=== PATIENT | female | born 1935 | race Caucasian/White ===

== ENCOUNTER 2019-08-23 23:16 | Inpatient (IN) | payer MEDICARE, SELFPAY ==
[2019-08-23 23:30] VITALS: BP 146/84; PULSE 86; RESP 22; TEMP 37; O2SAT 98
--- NOTE | 2019-08-23 23:30 | ECG_ITS ---
Measurements Intervals [place] Rate: 89 P: 47 PA: 190 QRS: -26 QRSD: 151 T: 112 QT: 402 QTc: 490 SINUS RHYTHM BORDERLINE LEFT AXIS DEVIATION [QRS AXIS < -20] INTRAVENTRICULAR CONDUCTION DELAY [130+ ms QRS DURATION] Compared to ECG 01/08/2019 18:32:10 Intraventricular conduction delay now present Electronically Signed On 08-24-2019 14:44:03 [facility] by Kashif Girard M.D. [id number]
[2019-08-23 23:33] VITALS: BMI 27.3
[2019-08-24] VITALS (25 sets, daily range): BP systolic 114–177; BP diastolic 69–95; PULSE 65–88; RESP 15–20; TEMP 36.2–37.4; O2SAT 81–100
[2019-08-24] MEDS: D5-NS 0.45% + KCL 20 mEq 20 MEQ/1,000 ML BAG 75 MEQ IV (00:08)
[2019-08-24] MEDS: morphine 4 mg/mL SDV 1 mL 2 MG IVP ×2 (00:09→13:42)
--- NOTE | 2019-08-24 03:34 | PM.HP ---
Providers/Chief Complaint Admitting Physician: Carleen Bennett MD Primary Care Provider: JACKELYN pacheco Chief Complaint: L HIP FRACTURE History of Present Illness Irene Moon is a 83 year old female who presented to [facility] after a witnessed fall. She tripped over some luggage in her home. She felt a crack and a pop in her left hip where she landed. No symptoms preceding the fall. It was simply accidental. Patient was ultimately found to have a left hip fracture. Patient requested transfer for orthopedic care. She is otherwise been doing well. Review of Systems Const: Denies: fever or chills Eyes: Denies: change in vision ENMT: Denies: throat pain or nasal congestion Card: Denies: chest pain, palpitations, irregular heart rhythm, swelling of feet/ankles, lightheadedness, syncope, shortness of breath on exertion or shortness of breath when lying down Resp: Denies: shortness of breath, productive cough or non-productive cough GI: Denies: abdominal pain, nausea, vomiting, diarrhea or constipation : Denies: difficulty urinating or urinary frequency Musc: Reports: extremity pain Skin/Breast: Denies: rash or itching Neuro: Denies: headache, numbness in extremities or weakness in extremities Psych: Reports: anxiety and depression Medications/Allergies Home Medications Medication Instructions Recorded Confirmed Last Taken Type alprazolam See Rx Instructions .ROUTE 08/23/19 08/23/19 1 Day Ago History .COMPLEX PRN ~08/22/19 .25 mg paroxetine HCl mg PO DAILY 08/23/19 1 Day Ago History ~08/22/19 10 mg Allergies Allergy/AdvReac Type Severity Reaction Status Date / Time No Known Drug Allergies Allergy Unknown na Verified 08/23/19 23:36 PFSH Acute PFSH: Statuses (acute, chronic, etc) shown below reflect problem list status as previously entered and may not be historically accurate Medical History (Updated 08/24/19 @ 05:10 by Carleen Bennett MD) Anxiety (Acute) Depression (Acute) History of esophageal dilatation (Acute) Pineal gland, tumor (Acute) benign Surgical History (Updated 08/24/19 @ 03:42 by Carleen Bennett MD) History of appendectomy (Acute) History of cataract surgery (Acute) History of cholecystectomy (Acute) Family History (Updated 08/24/19 @ 03:42 by Carleen Bennett MD) Other Cancer Social History (Updated 08/24/19 @ 03:42 by Carleen Bennett MD) Smoking and tobacco status: former smoker Alcohol intake: never Substance/Drug Use: never Female Reporductive History: : 5 Vitals/I&O/Wt Last Vital Signs Temp 98.6 F 08/23/19 23:30 Pulse 80 08/24/19 00:45 Resp 18 08/24/19 00:09 BP 146/84 08/23/19 23:30 Pulse Ox 97 08/24/19 00:45 Weight last 48 hrs Weight 65.998 kg Weight 65.998 kg Weight 65.998 kg Physical Exam Const: COMMON NORMALS: no apparent distress, oriented x3 and alert HENMT: COMMON NORMALS: normocephalic, head/scalp atraumatic and moist oral mucous membranes Eye: COMMON NORMALS: PERRL and EOMs intact bilaterally Neck/C-Spine: COMMON NORMALS: supple and no JVD Resp: COMMON NORMALS: normal respiratory effort, no use of accessory muscles and clear to auscultation bilaterally Cardio: COMMON NORMALS: regular rate, regular rhythm and no murmurs GI: COMMON NORMALS: normal to inspection, nondistended, normoactive bowel sounds, soft to palpation and non-tender : COMMON NORMALS: Yes external appearance normal BLADDER/KIDNEY EXAM: Yes catheter in place Catheter type (Female): urethral Extremity: NARRATIVE EXTREMITY EXAM: Right lower extremity shortened and externally rotated Neuro: COMMON NORMALS: no focal motor deficits and no sensory deficits noted SPEECH: speech normal Psych: COMMON NORMALS: thought process normal, cooperative and affect normal Skin: GENERAL SKIN EXAM: no rashes or lesions noted Data Other Data: Other data: Studies from outside facility: X-ray of the pelvis shows a nondisplaced left femoral neck fracture Lumbar spine film was of suboptimal technique but showed spondylosis and suspected grade 1 anterior listhesis of L5 on S1 Left hip x-ray showed left femoral neck fracture with displacement and some superior angulation White count 11,000, H&H 14/45, platelet count 238 Sodium 139, potassium 4.0, chloride 100, CO2 28, calcium 9.1, BUN/creatinine 16/1.3, albumin 4.0, total bilirubin 0.4, alkaline phosphatase 118, AST 118, ALT 11 Urinalysis with specific gravity 1.020 trace ketones negative glucose negative nitrites and negative leukocyte esterase A&P Assessment and plan (1) Closed left hip fracture: Status: Acute Qualifiers: Encounter type: initial encounter Qualified Code(s): S72.002A - Fracture of unspecified part of neck of left femur, initial encounter for closed fracture Code(s): S72.002A - Fracture of unspecified part of neck of left femur, initial encounter for closed fracture (2) Depression: Status: Acute Qualifiers: Depression Type: unspecified Qualified Code(s): F32.9 - Major depressive disorder, single episode, unspecified Code(s): F32.9 - Major depressive disorder, single episode, unspecified (3) Anxiety: Status: Acute Code(s): F41.9 - Anxiety disorder, unspecified Additional A&P Information Additional A&P Information: Inpatient admission Orthopedic consultation Pain control N.p.o. for surgical intervention We will continue usual home medications PT and OT evaluations Patient has already decided she will go home with her daughter Currently SCDs for DVT prophylaxis Supportive care otherwise Both patient and her daughters in the room were given an opportunity to ask questions which were answered Attestations Medical Necessity Statement*: Anticipated stay greater than 2 midnights and patient with a hip fracture necessitating surgical intervention Coding Level of Care Code Acute Sales Assistant Displays for Dennis Fernández Diagnoses Closed left hip fracture S72.002A Encounter type: initial encounter Depression F32.9 Depression Type: unspecified Anxiety F41.9
[2019-08-24 04:45] LABS: Basophils % 0.2 %; Eosinophils % 0.2 %; Hematocrit 42.2 % (37.0-47.0); Hemoglobin 13.3 g/dL (11.5-15.3); Lymphocytes # 0.6 10^3/uL (0.8-4.8); Lymphocytes % 8.4 %; Mean Corpuscular HGB Conc 31.5 g/dL (30.0-36.0); Mean Corpuscular Hemoglobin 29.6 pg (28.0-34.0); Mean Corpuscular Volume 93.8 fL (81-99); Mean Platelet Volume 9.7 fL (7.4-10.4); Monocytes # 0.3 10^3/uL (0.2-0.9); Monocytes % 4.4 %; Neutrophils # 5.6 10^3/uL (1.8-7.7); Neutrophils % 86.2 %; Nucleated Red Blood Cells % 0 %; Platelet Count 186 10^3/cmm (130-400); Red Cell Distribution Width 12.6 % (12.1-15.1); White Blood Count 6.5 10^3/uL (4.0-10.0)
--- NOTE | 2019-08-24 09:32 | ANES.PREANES ---
Pre-Anesthetic Assessment Pre-Anesthetic Assessment: Height/Weight: Height 1.55 m Weight 71.033 kg Temp Pulse Resp BP Pulse Ox 97.1 F L 65 18 141/88 99 08/24/19 08:43 08/24/19 08:43 08/24/19 08:43 08/24/19 08:43 08/24/19 08:43 Preop Diagnosis: hip fracture (l) Proposed Procedure: Operation Date: 08/24/19 10:20 Proposed Procedures p Hemiarthroplasty Hip Bipolar(Left) - Husam Mcdaniel MD Familial anesthetic complications: no trouble Was Beta Keshawn taken within 24 hours: N/A Last intake: Intake Last Liquid Date 08/24/19 Last Liquid Time 22:00 Last Solid Date 08/23/19 Last Solid Time 18:00 Social: Social History: Tobacco (former) and No alcohol Exam: Pre-Anes Outpt Exam: alert Airway: Cervical ROM: WNL MP: 3 Dentition: Chipped Additional comments: missing Pulmonary: Pulmonary: None reported CV/HEM: CV/HEM: None reported : : None reported Hepatic: Hepatic: None reported GI: GI: GERD and Hiatus hernia Metabolic: Metabolic: None reported Musc/skel: Comments: Hip fracture Neuropsych: Neuropsych: None reported Anesthetic Plan: ASA status: II Anesthesia: General Risk of > 500 ml blood loss (7ml/kg in children): Yes, adequate IV access and fluids planned Meds/Allergies Current Medications: Current Medications Generic Name Dose Route Start Last Admin Trade Name Freq PRN Reason Stop Dose Admin Potassium Chloride /Dextrose/Sod Cl 20 meq in 1,000 m ls @ 75 mls/hr 08/23/19 23:30 08/24/19 00:08 D5-Ns 0.45% + Albaro l 20 Meq IV 75 mls/hr .[id number] SHERWIN Administration Morphine Sulfate 2 mg 08/23/19 23:30 08/24/19 00:09 Morphine IVP 2 mg Q4H PRN Administration SEVERE PAIN PFSH Anesthesia PFSH: Medical History (Updated 08/24/19 @ 05:10 by Carleen Bennett MD) Anxiety (Acute) Depression (Acute) History of esophageal dilatation (Acute) Pineal gland, tumor (Acute) benign Surgical History (Updated 08/24/19 @ 03:42 by Carleen Bennett MD) History of appendectomy (Acute) History of cataract surgery (Acute) History of cholecystectomy (Acute) Family History (Updated 08/24/19 @ 03:42 by Carleen Bennett MD) Other Cancer Social History (Updated 08/24/19 @ 03:42 by Carleen Bennett MD) Smoking and tobacco status: former smoker Alcohol intake: never Substance/Drug Use: never Female Reproductive History: : 5 Data Anesthesia Labs: Other Labs: Laboratory Results - last 48 hr 08/24/19 03:52 WBC 6.5 RBC 4.50 Hgb 13.3 Hct 42.2 MCV 93.8 MCH 29.6 MCHC 31.5 RDW 12.6 Plt Count 186 MPV 9.7 Neut % (Auto) 86.2 Lymph % (Auto) 8.4 Swisher % (Auto) 4.4 Eos % (Auto) 0.2 Baso % (Auto) 0.2 Neut # (Auto) 5.6 Lymph # (Auto) 0.6 L Swisher # (Auto) 0.3 Eos # (Auto) 0.0 Baso # (Auto) 0.0 Nucleated RBC % (a uto) 0 Nucleated RBCs # 0.0 Cardiac Studies: No Data to Display
[2019-08-24] MEDS: fentaNYL 50 mcg/mL INJ 2mL 25 MCG IVP (09:57)
--- NOTE | 2019-08-24 10:10 | P.CONIM_ITS ---
Providers/Reason For Consult Consulting Physican/Specialty*: Orthopedic surgery Reason for Consult*: Left intratrochanteric hip Requesting Physcian: Husam Mcdaniel MD Attending Physician: Julio Farooq MD History of Present Illness History of Present Illness Irene Moon is a 83 year old female who presented to [facility] after a fall at home when she tripped over luggage. She described a pop in her left hip when she landed and immediate pain. She was unable to resume weightbearing status. And [facility] she is found to have a displaced left femoral neck fracture. She is admitted to medicine and orthopedics is consulted for management of her left hip fracture. She denies any preceding left hip pain. She has no other extremity pain. Review of Systems Const: Denies: fever or chills Card: Denies: chest pain, palpitations or irregular heart rhythm Resp: Denies: shortness of breath or productive cough GI: Denies: abdominal pain, nausea or vomiting : Denies: painful urination or urinary frequency Neuro: Denies: numbness in extremities Meds/Allergies Home Medications and Allergies Home Medications Medication Instructions Recorded Confirmed Type alprazolam See Rx Instructions .ROUTE 08/23/19 08/23/19 History .COMPLEX PRN paroxetine HCl mg PO DAILY 08/23/19 History Allergies Allergy/AdvReac Type Severity Reaction Status Date / Time No Known Drug Allergies Allergy Unknown na Verified 08/23/19 23:36 Current Medications Current Medications Generic Name Dose Route Start Last Admin Trade Name Freq PRN Reason Stop Dose Admin Potassium Chloride/Dextrose/Sod Cl 20 meq in 1,000 mls @ 75 mls/hr 08/23/19 23:30 08/24/19 00:08 D5-Ns 0.45% + Kcl 20 Meq IV 75 mls/hr .[id number] SHERWIN Administration Morphine Sulfate 2 mg 08/23/19 23:30 08/24/19 00:09 Morphine IVP 2 mg Q4H PRN Administration SEVERE PAIN PFSH Acute PFSH: Statuses (acute, chronic, etc) shown below reflect problem list status as previously entered and may not be historically accurate Medical History Anxiety (Acute) Depression (Acute) History of esophageal dilatation (Acute) Pineal gland, tumor (Acute) benign Surgical History History of appendectomy (Acute) History of cataract surgery (Acute) History of cholecystectomy (Acute) Family History (Updated 08/24/19 @ 03:42 by Carleen Bennett MD) Other Cancer Social History (Updated 08/24/19 @ 03:42 by Carleen Bennett MD) Smoking and tobacco status: former smoker Alcohol intake: never Substance/Drug Use: never Female Reporductive History: : 5 Vitals/I&O/Wt Last Vital Signs Temp 97.1 F L 08/24/19 08:43 Pulse 65 08/24/19 08:43 Resp 18 08/24/19 09:57 BP 141/88 08/24/19 08:43 Pulse Ox 96 08/24/19 09:57 Weight last 48 hrs Weight 156 lb 9.6 oz Weight 145 lb 8 oz Weight 145 lb 8 oz Weight 145 lb 8 oz Physical Exam Narrative: EXAM NARRATIVE: Patient is a heavyset elderly female with shortening and deformity about her left hip. She answers questions appropriately but is somewhat sedate Resp: COMMON NORMALS: clear to auscultation bilaterally AUSCULTATION: clear to auscultation bilaterally Cardio: COMMON NORMALS: S1 normal heart sound and S2 normal heart sound HEART SOUNDS: S1 normal and S2 normal GI: INSPECTION: Yes normal to inspection PALPATION: No tender Extremity: LEFT LOWER EXTREMITY: Yes hip joint (Her left hip is painful with range of motion. She has ecchymoses over her lateral soft tissues) Neuro: SENSORY EXAM: Yes extremities (Intact left lower extremity) MOTOR EXAM: no movement abnormalities noted (Left foot and ankle) Urinary Catheter Management^: Brown: Cath Placed During This Visit: no Data Imaging^: Xray Ortho: My impression: I reviewed radiographs of the left hip showing a displaced left femoral neck fracture A&P Assessment and plan (1) Closed left hip fracture: I discussed alternatives including percutaneous pinning versus arthroplasty. I told her with a displaced fracture and her age she would be a high risk of fixation failure and avascular necrosis. I discussed hip arthroplasty with the patient models. I made her aware of risk with the procedure. I discussed risk of a possible instability or dislocation. I discussed the possibility of continued pain. I discussed risk of component failure loosening the need for revision. I discussed risk of deep venous thromboses and pulmonary emboli even with anticoagulation. I discussed anesthetic risk with surgery. The patient understands all her alternativesand agrees to proceed with total hip arthroplasty. They expressed good understanding was offered the opportunity for her questions to be answered. Status: Acute Qualifiers: Encounter type: initial encounter Qualified Code(s): S72.002A - Fracture of unspecified part of neck of left femur, initial encounter for closed fracture Code(s): S72.002A - Fracture of unspecified part of neck of left femur, initial encounter for closed fracture Coding Level of Care Code Acute Acid Tender for g Fwd Diagnoses Closed left hip fracture S72.002A Encounter type: initial encounter
[2019-08-24] MEDS: sodium chloride 0.9% 1,000 ML 30 ML IV (10:20)
[2019-08-24] MEDS: tranexamic acid 1,000 mg/10mL SDV 2000 MG IRRIGATION (11:37)
--- NOTE | 2019-08-24 12:05 | SUR.PHASEI ---
1200 PATIENT TO PACU AT THIS TIME VIA BED FROM OR. RR EVEN AND UNLABORED. PWD. DRESSING TO LEFT HIP, CDI. PULSE PRESENT. CAP REFILL LESS THAN 3 SECONDS.
--- NOTE | 2019-08-24 12:13 | XR_ITS ---
WS: [id number] HIP LEFT TECHNIQUE: 2 views of the left hip CLINICAL INFORMATION: POST OP COMPARISON: None. FINDINGS: Early postoperative left ISABEL. Hardware appears in good position. Otherwise unremarkable for postopera tive purposes. XR/XR hip LT 1V wo/w pel [id number] IMPRESSION: Normal postoperative left ISABEL.
[2019-08-24] MEDS: fentaNYL 50 mcg/mL INJ 2mL IVP (12:20)
--- NOTE | 2019-08-24 12:23 | SUR.PHASEI ---
FIRST ICE PLACED TO LEFT HIP.
[2019-08-24] MEDS: fentaNYL 50 mcg/mL INJ 2mL 75 MCG IVP (12:33)
--- NOTE | 2019-08-24 12:33 | P.OP_ITS ---
Operative Report Post-Operative Note Date of procedure: 08/24/19 Preop Diagnosis: Left femoral neck fracture, Post-op Findings: Same Procedure Done: Left hip hemiarthroplasty Implants: [employer] size 6 femoral stem, 44 mm bipolar head, 28 mm femoral head standard neck length Pathology: none sent Anesthesia: general Estimated blood loss (mL): 450 Complications: none Findings: Patient has a displaced fracture of the left femoral neck Condition: stable Disposition: PACU Operative Report Procedure: The patient was taken to the operating room and a general l anesthesia was provided by the anesthesia service. They were given 2 g of Ancef and 1 g of TXA. and positioned in the lateral position with the hip exposed. A 10 cm long incision was made over the greater trochanter with a scalpel blade. Dissection was carried down through the fascia poli to the greater trochanter. The anterior two thirds of gluteus medius and minimus were elevated off the greater trochanter with electrocautery. The capsule was divided T like fashion. The hip was externally rotated and the neck brought up into the wound. An oscillating saw was really used to resect the neck just above the level of the lesser trochanter. The femoral head was removed and the acetabulumt sized to a 44 mm bipolar head. Sequential reaming of the canal was accomplished up to a size 6. The canal was broached to a size 6 and a size 6 [place] [employer] WINTERS stem was press fit into place. A trial reduction with a [] mm neck provided excellent stability. The final head and neck were placed and the hip reduced. The anterior capsule were reapproximated with 1 Ethibond. The gluteus medius and minimus were repaired through the greater trochanter with 5 Ethibond and reinforced with 1 Ethibond. The fascia poli was closed with 1 Ethibond. The subcutaneous tissues were closed with 2-0 Vicryl. The skin was closed with skin yumiko. Sterile dressings were applied. The patient was placed in abduction pillow and taken recovery room in stable condition.
--- NOTE | 2019-08-24 12:48 | SUR.PHASEI ---
UNABLE TO FIND FAMILY IN THE WAITING ROOM.
[2019-08-24] MEDS: HYDROcodone-acetaminophen 5-325 mg Tablet 1 TAB PO ×2 (12:58→20:57)
--- NOTE | 2019-08-24 13:03 | SUR.PHASEI ---
1240 PATIENT TO MED SURG AT THIS TIME. RR EVEN AND UNLABORED. PWD. PULSE PRESENT TO LEFT PEDAL PULSE. CAP REFILL INTACT. FIRST ICE IN PLACE TO LEFT HIM WITH CDI DRESSING. FAMILY PRESENT IN MED SURG ROOM. VSS 177/82, P 68 RR 18 T98.0 SPO2 96% ON 3L NC
[2019-08-24] MEDS: sodium chloride 0.9% 1,000 ML 100 ML IV (13:47)
--- NOTE | 2019-08-24 15:52 | PM.PACU ---
PACU note Post-Anesthesia Exam: awake and vital signs stable Disposition: back to floor
--- NOTE | 2019-08-24 16:58 | PC.CHAP ---
Pastoral Care Encounter/Spiritual Assessment Type of Contact [] Declined pop singer visit [] Patient/Family/Request visit [] Outpatient visit [] Follow-up visit [] Physician referral [] Code/Alert [x] Routine visit [] Staff referral [] Actively dying [] Patient sleeping [x] Family support [] [] Out of room [] Palliative care [] [] Receiving care in room [x] Pre-surgical visit [] Trauma [] Long length of stay [] ICU visit [] Other: Relational/Emotional Strength x[] Patient feels connected with others/family/visitors/staff [] Distress [] Loneliness/isolation [] Abandonment Spirituality of Patient [x] Person of Helga [] Attends Yazdanism of their Helga [x] Believes in Prayer [] Reads Bible or Moravian materials [] There are Spiritual issues to be addressed Electronic Funds Transfer Coordinator Interventions [x] Prayer [x] Active listening [x] Non-anxious presence [x] Spiritual/emotional support [] Crisis/trauma care [] Spiritual counseling [] Bereavement support [] Provided bereavement packet [] Provided Bible/devotional materials [] Provided toy/stuffed animal, coloring book to patient or family member [] Completed spiritual assessment [] Provided Communion [] Anointing/[place] [] Salvation [] Other: Impact on Illness or Injury [] Angry [] Fearful [] Anxious [] Often cries [] Exhaustion [] Unable to work [] Unable to attend mosque [] Unable to walk/stand [] Unable to read [] Unable to drive [] Unable to eat/drink [] Unable to sleep [] Unable to be with family [] Other: Summary patient had surgery in the morning, had 6 family members there. Electronic Funds Transfer Coordinator prayed Time spent with patient
--- NOTE | 2019-08-24 17:31 | P.PN_ITS ---
Subjective Subjective: Interval history: Admitted overnight. Labs and H and P noted. Seen post OP. Comfortable and in good spirits talking to family. States pain in well controlled. Denies any N/V, SOB, CP, cough, headache. Medications: Reviewed: Yes Vitals/I&O/Wt Last Vital Signs Temp 98.9 F 08/24/19 17:00 Pulse 78 08/24/19 17:00 Resp 18 08/24/19 17:00 BP 114/73 08/24/19 17:00 Pulse Ox 97 08/24/19 17:00 08/24/19 08/24/19 08/24/19 06:59 14:59 22:59 Intake Total 2006.5 / Output Total 550 / 550 Balance 1457.5 / 1457.5 Weight last 48 hrs Weight 71.016 kg Weight 71.033 kg Weight 65.998 kg Weight 65.998 kg Weight 65.998 kg Physical Exam Narrative: EXAM NARRATIVE: General: No acute distress, AO x3 HEENT: PERRLA, pupils bilaterally equal and reactive Chest: Normal vesicular breath sounds, no added sounds, equal good air entry bilaterally CVS: S1-S2 regular, no murmurs, no tachycardia, no gallops, no rubs Abdomen: Soft, nontender, no organomegaly, bowel sounds present Neuro: No focal deficits, no facial deformity, AO x3, power 5/5 in all limbs EXT: B/L peda pulses 2+, no edema. Hip dressing clean Urinary Catheter Management^: Brown: Cath Placed During This Visit: no A&P Assessment and plan (1) Closed left hip fracture: Status: Acute Qualifiers: Encounter type: initial encounter Qualified Code(s): S72.002A - Fracture of unspecified part of neck of left femur, initial encounter for closed fracture Code(s): S72.002A - Fracture of unspecified part of neck of left femur, initial encounter for closed fracture (2) Anxiety: Status: Acute Code(s): F41.9 - Anxiety disorder, unspecified Additional A&P Information Additional A&P Information: Post op day 0 from closed left hip fracture repair Perioperative abx, pain management, as per orthopedics team Will avoid oversedation, therefore will reduce morphine to q4h. Pain currently well controlled iv tylenol q8h standing PT/DVT ppx per surgical team Dementia Continue home dose Paroxtine and monitor for ing Full Code. Diet advanced to regular diet as per surgical team resident services coordinator ocnsult for discharge/dispo planning Attestations Medical Necessity Statement*: post op monitoring from hip fracture Coding Level of Care Code Acute Health Sciences Program Coordinator for Dennis Fernández Diagnoses Closed left hip fracture S72.002A Encounter type: initial encounter Anxiety F41.9
[2019-08-24] MEDS: docusate sodium 100 mg Capsule PO (17:35)
[2019-08-25] VITALS (8 sets, daily range): BP systolic 105–144; BP diastolic 63–81; PULSE 75–97; RESP 14–20; TEMP 36.3–36.8; O2SAT 91–98
[2019-08-25] MEDS: morphine 4 mg/mL SDV 1 mL 2 MG IVP (00:48)
[2019-08-25] MEDS: sodium chloride 0.9% 1,000 ML 100 ML IV (00:49)
[2019-08-25] MEDS: HYDROcodone-acetaminophen 5-325 mg Tablet 1 TAB PO ×4 (04:41→22:01)
[2019-08-25 05:56] LABS: Basophils % 0.2 %; Eosinophils # 0.1 10^3/uL (0.0-0.8); Eosinophils % 2.6 %; Hematocrit 35.6 % (37.0-47.0); Hemoglobin 11.2 g/dL (11.5-15.3); Lymphocytes # 0.6 10^3/uL (0.8-4.8); Lymphocytes % 10.5 %; Mean Corpuscular HGB Conc 31.5 g/dL (30.0-36.0); Mean Corpuscular Hemoglobin 28.7 pg (28.0-34.0); Mean Corpuscular Volume 91.3 fL (81-99); Mean Platelet Volume 9.9 fL (7.4-10.4); Monocytes # 0.4 10^3/uL (0.2-0.9); Monocytes % 8.2 %; Neutrophils # 4.2 10^3/uL (1.8-7.7); Neutrophils % 78.1 %; Nucleated Red Blood Cells % 0 %; Platelet Count 155 10^3/cmm (130-400); Red Cell Distribution Width 12.7 % (12.1-15.1); White Blood Count 5.4 10^3/uL (4.0-10.0)
[2019-08-25 06:15] LABS: Anion Gap 10.6 (5-19); Blood Urea Nitrogen 7 mg/dL (8-23); Calcium 8.3 mg/Dl (8.8-10.2); Carbon Dioxide 27 mmol/L (22-29); Chloride 103 mmol/L (98-107); Glucose 136 mg/dL (74-106); Potassium 3.6 mmol/L (3.5-5.1); Sodium 137 mmol/L (136-145)
[2019-08-25] MEDS: PARoxetine 20 mg Tablet 10 MG PO (08:49)
[2019-08-25] MEDS: docusate sodium 100 mg Capsule PO ×2 (08:49→17:07)
[2019-08-25] MEDS: enoxaparin 40 mg/0.4 mL Syringe SUBCUT (09:48)
--- NOTE | 2019-08-25 10:06 | ANE.PACU ---
 Inpatient post-anesthesia follow up: Airway intact: Yes Vital signs: Temperature 97.6 F Pulse Rate [Left D orsalis 77 Pedis] Pulse Rate [Right Apical] 72 Pulse Rate 81 Respiratory Rate 14 Blood Pressure [Le ft Arm] 130/74 Pulse Oximetry 98 Oxygen Delivery Me thod [ Nasal Cannula Current Rate & Del zahra] Oxygen Delivery Me thod [Rate & Nasal Cannula Delivery Changed T o] Oxygen Delivery Me thod Nasal Cannula Oxygen Flow Rate [ Current Rate 2 & Delivery] Oxygen Flow Rate [ Rate & 3 Delivery Changed T o] Oxygen Flow Rate 3 Fraction of Inspir ed Oxygen Hydration adequate: Yes Nausea and vomiting: No Mental status: Baseline
--- NOTE | 2019-08-25 14:23 | P.PN_ITS ---
Subjective Subjective: Interval history: Postop day 1. No acute events overnight. This morning on evaluation patient is sitting comfortably in chair. States her pain is well controlled. Patient worked well with physical therapy. Is in good spirits sitting with her family members. Medications: Reviewed: Yes Vitals/I&O/Wt Last Vital Signs Temp 97.8 F 08/25/19 12:00 Pulse 91 08/25/19 12:00 Resp 16 08/25/19 12:00 BP 138/78 08/25/19 12:00 Pulse Ox 92 08/25/19 12:00 08/24/19 08/25/19 08/25/19 22:59 06:59 14:59 Intake Total 430 / 2437.5 1300 / 3737.5 120 / 120 Output Total 1150 / 1700 850 / 850 Balance 430 / 1887.5 150 / 2037.5 -730 / -730 Weight last 48 hrs Weight 71.016 kg Weight 71.033 kg Weight 65.998 kg Weight 65.998 kg Weight 65.998 kg Physical Exam Narrative: EXAM NARRATIVE: EXAM NARRATIVE: General: No acute distress, AO x3 HEENT: PERRLA, pupils bilaterally equal and reactive Chest: Normal vesicular breath sounds, no added sounds, equal good air entry bilaterally CVS: S1-S2 regular, no murmurs, no tachycardia, no gallops, no rubs Abdomen: Soft, nontender, no organomegaly, bowel sounds present Neuro: No focal deficits, no facial deformity, AO x3, power 5/5 in all limbs EXT: B/L peda pulses 2+, no edema. Hip dressing clean Urinary Catheter Management^: Brown: Cath Placed During This Visit: Yes. A&P Assessment and plan (1) Closed left hip fracture: Status: Acute Qualifiers: Encounter type: initial encounter Qualified Code(s): S72.002A - Fracture of unspecified part of neck of left femur, initial encounter for closed fracture Code(s): S72.002A - Fracture of unspecified part of neck of left femur, initial encounter for closed fracture (2) Anxiety: Status: Acute Code(s): F41.9 - Anxiety disorder, unspecified Additional A&P Information Additional A&P Information: Post op day 1 from closed left hip fracture repair Pain management as per orthopedics team. Continue with morphine every 4 hours as needed, Tylenol every 8 standing and hydrocodone every 4 as needed. Continue to work with PT for further rehabilitation. DVT prophylaxis as per orthopedics team. Dementia Continue home dose Paroxtine and monitor for Full Code. Lovenox for DVT prophylaxis Regular diet information services consultant consult for discharge/dispo planning: [facility] Attestations Medical Necessity Statement*: Needs continued hospitalization for postop management of ORIF Time Spent in Patient Care: less than 15 minutes Coding Level of Care Code Acute Remnant Sorter for Chg Fwd Diagnoses Closed left hip fracture S72.002A Encounter type: initial encounter Anxiety F41.9
[2019-08-26] VITALS (7 sets, daily range): BP systolic 92–143; BP diastolic 60–80; PULSE 78–100; RESP 16–18; TEMP 36.6–37.2; O2SAT 90–98
[2019-08-26 06:16] LABS: Basophils % 0.2 %; Eosinophils # 0.1 10^3/uL (0.0-0.8); Eosinophils % 1.1 %; Hematocrit 32.8 % (37.0-47.0); Hemoglobin 10.5 g/dL (11.5-15.3); Lymphocytes # 0.6 10^3/uL (0.8-4.8); Lymphocytes % 10.2 %; Mean Corpuscular Hemoglobin 29.3 pg (28.0-34.0); Mean Corpuscular Volume 91.6 fL (81-99); Mean Platelet Volume 9.8 fL (7.4-10.4); Monocytes # 0.5 10^3/uL (0.2-0.9); Monocytes % 7.4 %; Neutrophils % 80.8 %; Nucleated Red Blood Cells % 0 %; Platelet Count 163 10^3/cmm (130-400); Red Blood Count 3.58 10^6/uL (4.1-5.3); Red Cell Distribution Width 12.5 % (12.1-15.1); White Blood Count 6.2 10^3/uL (4.0-10.0)
--- NOTE | 2019-08-26 09:44 | PM.PN ---
Subjective Subjective: Interval history: Postop day 2. No acute events overnight. Siitting comfortably in chair. States her pain is well controlled. Patient worked well with physical therapy. Is in good spirits sitting with her family members. Medications: Reviewed: Yes Vitals/I&O/Wt Last Vital Signs Temp 98.8 F 08/26/19 08:00 Pulse 85 08/26/19 08:00 Resp 16 08/26/19 08:00 BP 117/75 08/26/19 08:00 Pulse Ox 94 08/26/19 08:00 08/25/19 08/26/19 08/26/19 22:59 06:59 14:59 Output Total 475 / 1325 300 / 1625 300 / 300 Balance -475 / -1205 -300 / -1505 -300 / -300 Weight last 48 hrs Weight 72.665 kg Weight 71.016 kg Physical Exam Narrative: EXAM NARRATIVE: EXAM NARRATIVE: General: No acute distress, AO x3 HEENT: PERRLA, pupils bilaterally equal and reactive Chest: Normal vesicular breath sounds, no added sounds, equal good air entry bilaterally CVS: S1-S2 regular, no murmurs, no tachycardia, no gallops, no rubs Abdomen: Soft, nontender, no organomegaly, bowel sounds present Neuro: No focal deficits, no facial deformity, AO x3, power 5/5 in all limbs EXT: B/L peda pulses 2+, no edema. Hip dressing clean Urinary Catheter Management^: Brown: Cath Placed During This Visit: no A&P Assessment and plan (1) Closed left hip fracture: Status: Acute Qualifiers: Encounter type: initial encounter Qualified Code(s): S72.002A - Fracture of unspecified part of neck of left femur, initial encounter for closed fracture Code(s): S72.002A - Fracture of unspecified part of neck of left femur, initial encounter for closed fracture (2) Anxiety: Status: Acute Code(s): F41.9 - Anxiety disorder, unspecified Additional A&P Information Additional A&P Information: Post op day 2 from closed left hip fracture repair Pain well controlled on current management. Continue to work with PT for further rehabilitation. DVT prophylaxis as per orthopedics team. Hb slightly low today.Most likely platueing after OR now . Will recheck again in evening to make sure not dropping. Dementia Continue home dose Paroxtine and monitor for ing Full Code. Lovenox for DVT prophylaxis Regular diet community services coordinator consult for discharge/dispo planning: [facility] Attestations Medical Necessity Statement*: Needs continued hospitalization for postop management of ORIF Coding Level of Care Code Acute Associate Store Director for [employer] Fwd Diagnoses Closed left hip fracture S72.002A Encounter type: initial encounter Anxiety F41.9
[2019-08-26] MEDS: docusate sodium 100 mg Capsule PO (09:52)
[2019-08-26] MEDS: enoxaparin 40 mg/0.4 mL Syringe SUBCUT (09:52)
[2019-08-26] MEDS: PARoxetine 20 mg Tablet 10 MG PO (09:52)
[2019-08-26] MEDS: HYDROcodone-acetaminophen 5-325 mg Tablet 1 TAB PO ×2 (09:53→16:48)
--- NOTE | 2019-08-26 10:46 | PC.SOCIAL ---
Pg 2 of IMM was explained to patient and her daughter, patient signed, copy was provided, and form placed in chart. They verbalized understanding and had no questions.
[2019-08-26 20:33] LABS: Hematocrit 36.3 % (37.0-47.0); Hemoglobin 11.7 g/dL (11.5-15.3)
[2019-08-27] VITALS (8 sets, daily range): BP systolic 107–133; BP diastolic 70–83; PULSE 77–102; RESP 16–20; TEMP 36.4–37.4; O2SAT 92–96
[2019-08-27 05:13] LABS: Basophils % 0.2 %; Eosinophils # 0.2 10^3/uL (0.0-0.8); Eosinophils % 3.6 %; Hematocrit 32.8 % (37.0-47.0); Hemoglobin 10.5 g/dL (11.5-15.3); Lymphocytes # 0.8 10^3/uL (0.8-4.8); Lymphocytes % 15.4 %; Mean Corpuscular Hemoglobin 29.2 pg (28.0-34.0); Mean Corpuscular Volume 91.4 fL (81-99); Mean Platelet Volume 9.8 fL (7.4-10.4); Monocytes # 0.5 10^3/uL (0.2-0.9); Neutrophils # 3.8 10^3/uL (1.8-7.7); Neutrophils % 71.2 %; Nucleated Red Blood Cells % 0 %; Platelet Count 181 10^3/cmm (130-400); Red Blood Count 3.59 10^6/uL (4.1-5.3); Red Cell Distribution Width 12.6 % (12.1-15.1); White Blood Count 5.3 10^3/uL (4.0-10.0)
[2019-08-27] MEDS: PARoxetine 20 mg Tablet 10 MG PO (08:36)
[2019-08-27] MEDS: HYDROcodone-acetaminophen 5-325 mg Tablet 1 TAB PO ×2 (10:31→23:02)
[2019-08-27] MEDS: enoxaparin 40 mg/0.4 mL Syringe SUBCUT (10:31)
--- NOTE | 2019-08-27 12:18 | PM.PN ---
Subjective Subjective: Interval history: Postop day3 . No acute events overnight. Continues to work with physical therapy. Denies of having any nausea, vomiting, chest pain, shortness of breath, dizziness. Medications: Reviewed: Yes Vitals/I&O/Wt Last Vital Signs Temp 98.1 F 08/27/19 11:27 Pulse 89 08/27/19 11:27 Resp 20 H 08/27/19 11:27 BP 130/74 08/27/19 11:27 Pulse Ox 95 08/27/19 11:27 08/26/19 08/27/19 08/27/19 22:59 06:59 14:59 Intake Total 240 / 480 240 / 240 Output Total 500 / 1000 200 / 1200 450 / 450 Balance -260 / -520 -200 / -720 -210 / -210 Weight last 48 hrs Weight 72.665 kg Physical Exam Narrative: EXAM NARRATIVE: EXAM NARRATIVE: General: No acute distress, AO x3 HEENT: PERRLA, pupils bilaterally equal and reactive Chest: Normal vesicular breath sounds, no added sounds, equal good air entry bilaterally CVS: S1-S2 regular, no murmurs, no tachycardia, no gallops, no rubs Abdomen: Soft, nontender, no organomegaly, bowel sounds present Neuro: No focal deficits, no facial deformity, AO x3, power 5/5 in all limbs EXT: B/L peda pulses 2+, no edema. Hip dressing clean Urinary Catheter Management^: Brown: Cath Placed During This Visit: no A&P Assessment and plan (1) Closed left hip fracture: Status: Acute Qualifiers: Encounter type: initial encounter Qualified Code(s): S72.002A - Fracture of unspecified part of neck of left femur, initial encounter for closed fracture Code(s): S72.002A - Fracture of unspecified part of neck of left femur, initial encounter for closed fracture (2) Anxiety: Status: Acute Code(s): F41.9 - Anxiety disorder, unspecified Additional A&P Information Additional A&P Information: Post op day 3 from closed left hip fracture repair Pain well controlled on current management. Continue to work with PT for further rehabilitation. DVT prophylaxis to be continued as before. Hemoglobin stable. Dementia Continue home dose Paroxtine and monitor for Anemia: Most likely chronic iron deficiency anemia along with recent surgery. Hemoglobin stable. Check TIBC. Will start patient on oral iron twice daily with meals. Full Code. Lovenox for DVT prophylaxis Regular diet vp marketing services and skin consult for discharge/dispo planning: [facility]. Awaiting authorization. Attestations Medical Necessity Statement*: Needs continued hospitalization for postop management. Time Spent in Patient Care: less than 15 minutes Coding Level of Care Code Acute Sas Clinical Programmer for Dennis Fwd Diagnoses Closed left hip fracture S72.002A Encounter type: initial encounter Anxiety F41.9
--- NOTE | 2019-08-27 12:26 | PM.PN ---
Subjective Subjective: Interval history: UP in chair eating. Pain OK. Passing urine Vitals/I&O/Wt Last Vital Signs Temp 98.1 F 08/27/19 11:27 Pulse 89 08/27/19 11:27 Resp 20 H 08/27/19 11:27 BP 130/74 08/27/19 11:27 Pulse Ox 95 08/27/19 11:27 08/26/19 08/27/19 08/27/19 22:59 06:59 14:59 Intake Total 240 / 480 240 / 240 Output Total 500 / 1000 200 / 1200 450 / 450 Balance -260 / -520 -200 / -720 -210 / -210 Weight last 48 hrs Weight 160 lb 3.2 oz Physical Exam Narrative: EXAM NARRATIVE: Left hip dressing clean and dry. Incison free of drainage Urinary Catheter Management^: Brown: Cath Placed During This Visit: no A&P Assessment and plan (1) History of arthroplasty of left hip: Status: Acute Code(s): Z98.890 - Other specified postprocedural states Additional A&P Information Additional A&P Information: Patient is appears to be medically stable. I agree with transfer to custodial. Attestations Medical Necessity Statement*: Patient is stable from orthopedic down point for transfer to custodial Coding Level of Care Code Acute Clinical Nursing Professor for Dennis Fernández Diagnoses History of arthroplasty of left hip Z98.890
[2019-08-27 16:05] LABS: Iron 17 ug/dL (37-145); Percent Saturation 11.3 % (20-50); Total Iron Binding Capacity 150 mg/dL; Unsaturated Iron Binding 133 ug/dL (112-347)
[2019-08-27] MEDS: ferrous sulfate EC 325 mg Tablet PO (17:40)
[2019-08-27] MEDS: ALPRAZolam 0.25 mg Tablet PO (23:06)
[2019-08-28] VITALS: BP 115/71; PULSE 87; RESP 20; TEMP 36.3; O2SAT 94
[2019-08-28 04:00] VITALS: BP 105/70; PULSE 77; RESP 18; TEMP 36.6; O2SAT 94
[2019-08-28] MEDS: HYDROcodone-acetaminophen 5-325 mg Tablet 1 TAB PO ×3 (06:33→15:47)
[2019-08-28 07:17] VITALS: BP 140/84; PULSE 76; RESP 17; TEMP 36.6; O2SAT 95
--- NOTE | 2019-08-28 07:55 | PM.PN ---
Subjective Subjective: Interval history: No comlaints. Pain OK. Awaiting SNF placement Vitals/I&O/Wt Last Vital Signs Temp 97.8 F 08/28/19 07:17 Pulse 76 08/28/19 07:17 Resp 17 08/28/19 07:17 BP 140/84 08/28/19 07:17 Pulse Ox 95 08/28/19 07:17 08/27/19 08/28/19 08/28/19 22:59 06:59 14:59 Intake Total 360 / 960 120 / 120 Output Total 400 / 850 Balance 360 / 510 -400 / 110 120 / 120 Weight last 48 hrs Weight 172 lb 11.2 oz Physical Exam Narrative: EXAM NARRATIVE: Left hip dressing clean and dry. Urinary Catheter Management^: Brown: Cath Placed During This Visit: no A&P Assessment and plan (1) History of arthroplasty of left hip: Status: Acute Code(s): Z98.890 - Other specified postprocedural states Additional A&P Information Doing well. Awaiting SNF bed Attestations Medical Necessity Statement*: Ready for SNF placement Coding Level of Care Code Acute Automatic Machine Attendant for Dennis Fernández Diagnoses History of arthroplasty of left hip Z98.890
[2019-08-28] MEDS: ferrous sulfate EC 325 mg Tablet PO ×2 (08:16→17:09)
[2019-08-28] MEDS: PARoxetine 20 mg Tablet 10 MG PO (08:16)
[2019-08-28] MEDS: enoxaparin 40 mg/0.4 mL Syringe SUBCUT (09:31)
--- NOTE | 2019-08-28 10:54 | PC.SOCIAL ---
IMM Update Pg 2 of IMM given and explained to patient. Voiced understanding. Copy provided to patient and chart updated.
[2019-08-28 12:00] VITALS: BP 138/84; PULSE 86; RESP 18; TEMP 36.7; O2SAT 93
[2019-08-28 15:00] VITALS: RESP 18; TEMP 36.7; O2SAT 93
[2019-08-28 15:52] VITALS: BP 113/72; PULSE 95; RESP 18; TEMP 36.7; O2SAT 94
--- NOTE | 2019-08-28 16:25 | PM.DCS ---
Discharge Providers Date of Admission: 08/23/19 23:16 Date of Discharge: 09/11/19 Attending Provider at Admission: Carleen Bennett MD Attending Provider at Discharge: Lissette Pyle MD Consults: Orthopedics: Dr. Husam Mcdaniel Diagnoses at Discharge Discharge Diagnosis (1) History of arthroplasty of left hip: Status: Acute Reason for Visit Reason for Visit: Reason For Visit: L HIP FRACTURE Hospital Course Discharge Summary: Irene Moon is a 83 year old female who presented to [facility] after a witnessed fall. She tripped over some luggage in her home. She felt a crack and a pop in her left hip where she landed. No symptoms preceding the fall. It was simply accidental. Patient was ultimately found to have a left hip fracture. Patient requested transfer for orthopedic care. She was seen by orthopedics and underwent left hip hemiarthroplasty on 08/24/2018. She tolerated the procedure well and her post OP hospitalisation was unremarkable. She worked well with PT and is being discharged to SNF for further physical rehab in hemodynamically stable condition. Physical Exam Narrative: EXAM NARRATIVE: General: No acute distress, AO x3 HEENT: PERRLA, pupils bilaterally equal and reactive Chest: Normal vesicular breath sounds, no added sounds, equal good air entry bilaterally CVS: S1-S2 regular, no murmurs, no tachycardia, no gallops, no rubs Abdomen: Soft, nontender, no organomegaly, bowel sounds present Neuro: No focal deficits, no facial deformity, AO x3, power 5/5 in all limbs Urinary Catheter Management^: Brown: Cath Placed During This Visit: no Discharge Data Data Completed and Pending: Completed Studies During Hospitalization Category Date Time Status XR hip LT 1V wo/[place] pel [id number] Stat Exams 08/24/19 12:13 Completed Vitals: Last Vital Signs Temp 98.1 F 08/28/19 15:52 Pulse 95 08/28/19 15:52 Resp 18 08/28/19 15:52 BP 113/72 08/28/19 15:52 Pulse Ox 94 08/28/19 15:52 Discharge Plan Discharge Patient Disposition: Xfer SNF Condition: Stable Prescriptions: New hydrocodone-acetaminophen 5-325 mg Tablet 1 tab PO Q4H PRN (Reason: Moderate To Severe Pain) Qty: 30 RF: 0 docusate sodium 100 mg Capsule 100 mg PO BID PRN (Reason: Constipation) Qty: 0 RF: 0 ferrous sulfate 325 mg (65 mg iron) Tablet,Delayed Release (Dr/Ec) 325 mg PO BIDWM Qty: 0 RF: 0 Continued alprazolam 0.25 mg tablet See Rx Instructions .ROUTE .COMPLEX PRN (Reason: Anxiety) RF: 0 Changed paroxetine HCl 10 mg 10 mg PO DAILY Qty: 30 RF: 0 Discharge Orders: Discharge Order (Routine); Ordered 08/27/19 Ordered By: Husam Mcdaniel Referrals: Husam Mcdaniel MD [Physician] - 09/25/19 1:00 pm Activity Restrictions/Additional Instructions: Okay to shower or bathe. Change dressing as needed Remove yumiko on 09/07/19 Discharge Date/Time: 08/28/19 18:45 Discharge Attestations Time Spent in Discharge Care*: less than 30 min Specific Discharge Activities: Specific discharge activities: discussing with residential case manager/social workers/dc planners Status at Discharge: Cognitive status at discharge: cognitively intact, Behavioral status at discharge: cooperative, Functional status at discharge: other assisted ambulation Overall status at discharge: patient is back to baseline Quality Metrics Clinical Quality Measures During this hospital stay, did patient experience: None Coding Level of Care Code Acute Narcotics And Vice Detective for Dennis Fernández Diagnoses History of arthroplasty of left hip Z98.890
--- NOTE | 2019-08-28 16:45 | P.DS_ITS ---
Discharge Providers Date of Admission: 08/23/19 23:16 Date of Discharge: 08/28/19 Attending Provider at Admission: Carleen Bennett MD Attending Provider at Discharge: Lissette Pyle MD Diagnoses at Discharge Discharge Diagnosis (1) History of arthroplasty of left hip: Status: Acute Reason for Visit Reason for Visit: Reason For Visit: L HIP FRACTURE Hospital Course Discharge Summary: Irene Moon is a 83 year old female who presented to [facility] after a witnessed fall. She tripped over some luggage in her home. She felt a crack and a pop in her left hip where she landed. No symptoms preceding the fall. It was simply accidental. Patient was ultimately found to have a left hip fracture. Patient requested transfer for orthopedic care. She was seen by orthopedics and underwent left hip hemiarthroplasty on 08/24/2018. She tolerated the procedure well and her post OP hospitalisation was unremarkable. She worked well with PT and is being discharged to SNF for further physical rehab in hemodynamically stable condition. Physical Exam Narrative: EXAM NARRATIVE: General: No acute distress, AO x3 HEENT: PERRLA, pupils bilaterally equal and reactive Chest: Normal vesicular breath sounds, no added sounds, equal good air entry bilaterally CVS: S1-S2 regular, no murmurs, no tachycardia, no gallops, no rubs Abdomen: Soft, nontender, no organomegaly, bowel sounds present Neuro: No focal deficits, no facial deformity, AO x3, power 5/5 in all limbs Urinary Catheter Management^: Brown: Cath Placed During This Visit: no Discharge Data Data Completed and Pending: Completed Studies During Hospitalization Category Date Time Status XR hip LT 1V wo/w pel [id number] Stat Exams 08/24/19 12:13 Completed Vitals: Last Vital Signs Temp 98.1 F 08/28/19 15:52 Pulse 95 08/28/19 15:52 Resp 18 08/28/19 15:52 BP 113/72 08/28/19 15:52 Pulse Ox 94 08/28/19 15:52 Discharge Plan Discharge Patient Disposition: Xfer SNF Condition: Stable Prescriptions: New hydrocodone-acetaminophen 5-325 mg Tablet 1 tab PO Q4H PRN (Reason: Moderate To Severe Pain) Qty: 30 RF: 0 Lovenox 40 mg/0.4 mL Syringe 40 mg SUBCUT Q24H 10 Days Qty: 4 RF: 0 docusate sodium 100 mg Capsule 100 mg PO BID PRN (Reason: Constipation) Qty: 0 RF: 0 ferrous sulfate 325 mg (65 mg iron) Tablet,Delayed Release (Dr/Ec) 325 mg PO BIDWM Qty: 0 RF: 0 Continued alprazolam 0.25 mg tablet See Rx Instructions .ROUTE .COMPLEX PRN (Reason: Anxiety) RF: 0 Changed paroxetine HCl 10 mg 10 mg PO DAILY Qty: 30 RF: 0 Discharge Orders: Discharge Order (Routine); Ordered 08/27/19 Ordered By: Husam Mcdaniel Referrals: Husam Mcdaniel MD [Physician] - 09/25/19 1:00 pm Discharge Diet: Advance as tolerated Discharge Activity: As per PT/OT instructions Activity Restrictions/Additional Instructions: Okay to shower or bathe. Change dressing as needed Remove yumiko on 09/07/19 Discharge Attestations 2 Time Spent in Discharge Care*: less than 30 min Specific Discharge Activities: Specific discharge activities: discussing with director of casework services/social workers/dc planners Status at Discharge: Cognitive status at discharge: cognitively intact , Behavioral status at discharge: cooperative , Functional status at discharge: other assisted ambulation Overall status at discharge: patient is back to baseline Quality Metrics Clinical Quality Measures During this hospital stay, did patient experience: None Coding Level of Care Code Acute Family Advocate for Dennis Fernández Diagnoses History of arthroplasty of left hip Z98.890
== END 2019-08-28 18:45 | disposition skilled nursing facility (03) | DRG 470 ==
PROVIDERS: Orthopaedic Surgery; Student in an Organized Health Care Education/Training Program; Admitting Provider Hospitalist; Family Provider Nurse Practitioner Family; Visit Provider Student in an Organized Health Care Education/Training Program
PROC: 0SRS0JA Replacement of Left Hip Joint, Femoral Surface with Synthetic Substitute, Uncemented, Open Approach (ICD-10-PCS; CPT 27125; principal; 2019-08-24 10:20)
DX: S72.002A Fracture of unspecified part of neck of left femur, initial encounter for closed fracture (principal); W01.10XA Fall on same level from slipping, tripping and stumbling with subsequent striking against unspecified object, initial encounter; Y92.009 Unspecified place in unspecified non-institutional (private) residence as the place of occurrence of the external cause; F41.9 Anxiety disorder, unspecified; F32.9 Major depressive disorder, single episode, unspecified; F03.90 Unspecified dementia, unspecified severity, without behavioral disturbance, psychotic disturbance, mood disturbance, and anxiety; D50.9 Iron deficiency anemia, unspecified
CPT/HCPCS: 12345; 36415; 36416; 73501; 80048; 83540; 83550; 85014; 85018; 85025; 93005; 96372; 96374; 96375; 97110; 97116; 97161; 97165; 97530; 97535; C1776; J0690; J1580; J1650; J2001; J2270; J2704; J3010; J7030

== ENCOUNTER → 2019-12-22 11:46 | Outpatient (BNVA) | payer MEDICARE, SELFPAY | PROVIDERS: Family Provider Nurse Practitioner Family; Visit Provider Nurse Practitioner Family | DX: N39.0 Urinary tract infection, site not specified (principal) | CPT/HCPCS: 81000 ==

== ENCOUNTER → 2019-12-27 08:05 | Outpatient (BNVA) | payer MEDICARE, SELFPAY | PROVIDERS: Family Provider Nurse Practitioner Family; Visit Provider Nurse Practitioner Family | DX: N39.0 Urinary tract infection, site not specified (principal) | CPT/HCPCS: 80053; 81001 ==

== ENCOUNTER → 2020-05-30 12:02 | Outpatient (BNVA) | payer MEDICARE, SELFPAY | PROVIDERS: Family Provider Nurse Practitioner Family; Visit Provider Nurse Practitioner Family | DX: D64.9 Anemia, unspecified (principal); E55.9 Vitamin D deficiency, unspecified; Z79.899 Other long term (current) drug therapy; Z13.6 Encounter for screening for cardiovascular disorders | CPT/HCPCS: 80053; 80061; 81003; 82306; 82607; 82746; 83036; 83550; 84443; 85025 ==

== ENCOUNTER → 2020-07-01 09:18 | Outpatient (BNVA) | payer MEDICARE, SELFPAY | PROVIDERS: Family Provider Nurse Practitioner Family; Visit Provider Nurse Practitioner Family | DX: Z20.828 Contact with and (suspected) exposure to other viral communicable diseases (principal); R05 Cough; J06.9 Acute upper respiratory infection, unspecified; F41.9 Anxiety disorder, unspecified; F32.9 Major depressive disorder, single episode, unspecified; K59.00 Constipation, unspecified | CPT/HCPCS: 87400; 87635 ==

== ENCOUNTER → 2020-08-04 08:18 | Outpatient (BNVA) | payer MEDICARE, SELFPAY | PROVIDERS: Family Provider Nurse Practitioner Family; PCP Nurse Practitioner Family; Visit Provider Family Medicine | DX: N39.0 Urinary tract infection, site not specified (principal); D64.9 Anemia, unspecified | CPT/HCPCS: 80053; 81003; 82607; 82746; 83550; 85025; 87086 ==

== ENCOUNTER → 2020-11-19 11:43 | Outpatient (BNVA) | payer OTHER, SELFPAY | PROVIDERS: Family Provider Nurse Practitioner Family; PCP Nurse Practitioner Family; Visit Provider Nurse Practitioner Family | DX: R53.83 Other fatigue (principal); Z13.220 Encounter for screening for lipoid disorders; Z13.6 Encounter for screening for cardiovascular disorders; Z79.899 Other long term (current) drug therapy; E55.9 Vitamin D deficiency, unspecified; D64.9 Anemia, unspecified; G25.81 Restless legs syndrome; F32.9 Major depressive disorder, single episode, unspecified | CPT/HCPCS: 80053; 80061; 82306; 83036; 84443; 85025 ==

== ENCOUNTER 2021-04-21 06:00 | Outpatient (RCR) | payer OTHER, SELFPAY | END 2021-05-14 23:59 | disposition home or self-care (01) | LOC: WPT 06:00 | PROVIDERS: PCP Nurse Practitioner Family; Visit Provider Nurse Practitioner Family | DX: G89.29 Other chronic pain (principal); M25.511 Pain in right shoulder; M25.512 Pain in left shoulder | CPT/HCPCS: 97110; 97162 ==

== ENCOUNTER → 2021-06-01 10:43 | Outpatient (BNVA) | payer OTHER, SELFPAY | PROVIDERS: Family Provider Nurse Practitioner Family; PCP Nurse Practitioner Family; Visit Provider Nurse Practitioner Family | DX: S46.912A Strain of unspecified muscle, fascia and tendon at shoulder and upper arm level, left arm, initial encounter (principal); X58.XXXA Exposure to other specified factors, initial encounter | CPT/HCPCS: 73030 ==

== ENCOUNTER → 2021-07-06 10:42 | Outpatient (BNVA) | payer OTHER, SELFPAY | PROVIDERS: Family Provider Nurse Practitioner Family; PCP Nurse Practitioner Family; Visit Provider Nurse Practitioner Family | DX: D64.9 Anemia, unspecified (principal); F41.9 Anxiety disorder, unspecified; Z79.899 Other long term (current) drug therapy | CPT/HCPCS: 80053; 81003; 82306; 82607; 82728; 83036; 83550; 84207; 84439; 84443; 85025; 87077; 87086; 87184 ==

== ENCOUNTER → 2021-10-19 11:57 | Outpatient (BNVA) | payer MEDICARE, SELFPAY | PROVIDERS: Family Provider Nurse Practitioner Family; PCP Nurse Practitioner Family; Visit Provider Nurse Practitioner Family | DX: R79.89 Other specified abnormal findings of blood chemistry (principal); F32.9 Major depressive disorder, single episode, unspecified | CPT/HCPCS: 80053; 85025 ==

== ENCOUNTER → 2021-12-28 10:35 | Outpatient (BNVA) | payer MEDICARE, SELFPAY | PROVIDERS: Family Provider Nurse Practitioner Family; PCP Nurse Practitioner Family; Visit Provider Nurse Practitioner | DX: R06.02 Shortness of breath (principal); D64.9 Anemia, unspecified | CPT/HCPCS: 80053; 84443; 85025 ==

== ENCOUNTER 2022-04-09 09:41 | Outpatient (CLI) | payer MEDICARE, SELFPAY ==
--- NOTE | 2022-04-09 10:15 | USCV_ITS ---
Irene Moon Age: 86 Gender: F : 1935 Exam Date: 04/09/2022 09:58 Ordering Phys: Akua TranP RULING MACHINE SET UP OPERATOR Technologist: Kathy Milner [place] [facility] [place]: Short of Breath BP: 130 / 70 HR: 67 Rhythm: Sinus Technical Quality: Adequate MEASUREMENTS (Male / Female) Normal Values 2D ECHO LV Diastolic Diameter PLAX 3.8 cm 4.2 - 5.9 / 3.9 - 5.3 cm LV Systolic Diameter PLAX 3.0 cm LV Chamber Size 2.9 cm IVS Diastolic Thickness 1.0 cm 0.6 - 1.0 / 0.6 - 0.9 cm IVS Systolic Thickness 1.2 cm LVPW Diastolic Thickness 1.2 cm 0.6 - 1.0 / 0.6 - 0.9 cm LVPW Systolic Thickness 1.3 cm RV Chamber Size 2.8 cm LVOT Diameter 2.0 cm LV Ejection Fraction 2D Teich 45.0 % LV Ejection Fraction MOD 2C 53.3 % LV Ejection Fraction 2C AL 53.6 % LA Diameter 2.5 cm LA Width 2.9 cm LA Height 2.7 cm RA Width 2.9 cm RA Height 2.9 cm Aorta at Sinotubular Diameter 2.8 cm IVC Diameter 1.4 cm M-MODE Aortic Annulus Diameter 3.2 cm LA Ao Ratio MM 0.9 MV E Point Septal Separation 0.6 cm DOPPLER AV Peak Velocity 117.0 cm/s LVOT Peak Velocity 83.0 cm/s AV Area Cont Eq vti 2.5 cm squared AV Area Cont Eq pk 2.3 cm squared MV Area PHT 3.1 cm squared Mitral E to A Ratio 0.7 MV E' Velocity 42.0 cm/s Mitral E to MV E' Ratio 13.4 Mitral E to LV E' Lateral Ratio 15.5 Mitral E to LV E' Septal Ratio 11.8 TR Peak Velocity 189.5 cm/s TR Peak Gradient 14.4 mmHg TR Mean Velocity 113.9 cm/s TR Mean Gradient 6.5 mmHg TR Velocity Time Integral 38.6 cm TV Peak E Velocity 62.0 cm/s Right Atrial Pressure 3.0 mmHg Pulmonary Artery Systolic Pressu 17.4 mmHg PV Peak Velocity 63.0 cm/s RV Acceleration Time 0.1 s RV Ejection Time 0.3 s RV AcT/ET 0.4 FINDINGS Left Ventricle Normal left ventricular size, systolic function and wall thickness, with no regional wall motion abnormalities. Left ventricular ejection fraction is estimated at 65 %. Grade I/IV diastolic dysfunction (abnormal relaxation filling pattern), normal to mildly elevated filling pressures. Right Ventricle Normal right ventricular size and systolic function. Normal right ventricular systolic pressure. Right Atrium The right atrium is normal in size. Left Atrium The left atrium is normal in size. Mitral Valve Structurally normal mitral valve. Trace mitral valve regurgitation. Aortic Valve Structurally normal aortic valve without significant sclerosis or stenosis. There is no aortic regurgitation. Tricuspid Valve Structurally normal tricuspid valve. Trace tricuspid valve regurgitation. Pulmonic Valve Pulmonic valve not well visualized. Pericardium Normal pericardium without effusion. Aorta Normal ascending aorta dimension. IVC The inferior vena cava pulmonary and hepatic veins appear normal. CONCLUSIONS Normal left ventricular size, systolic function and wall thickness, with no regional wall motion abnormalities. Left ventricular ejection fraction is estimated at 65 %. Grade I/IV diastolic dysfunction (abnormal relaxation filling pattern), normal to mildly elevated filling pressures. Structurally normal mitral valve. Trace mitral valve regurgitation. There are no prior echocardiogram studies to compare. Dr. Kashif Girard MD (Electronically Signed) Final Date: 09 April 2022 13:33 S
== END 2022-04-09 09:42 | disposition home or self-care (01) ==
LOC: RAD 09:45
PROVIDERS: PCP Nurse Practitioner Family; Visit Provider Nurse Practitioner
DX: R06.02 Shortness of breath (principal); D64.9 Anemia, unspecified; I34.0 Nonrheumatic mitral (valve) insufficiency
CPT/HCPCS: 93306

== ENCOUNTER → 2022-06-30 13:47 | Outpatient (BNVA) | payer MEDICARE, SELFPAY | PROVIDERS: PCP Family Medicine; Visit Provider Internal Medicine | DX: R06.02 Shortness of breath (principal) | CPT/HCPCS: 93005; 99204 ==

== ENCOUNTER → 2023-02-08 16:07 | Outpatient (BNVA) | payer MEDICARE, SELFPAY | PROVIDERS: PCP Family Medicine; Visit Provider Nurse Practitioner | DX: G25.81 Restless legs syndrome (principal); N39.0 Urinary tract infection, site not specified; A49.9 Bacterial infection, unspecified | CPT/HCPCS: 81000 ==

== ENCOUNTER 2023-03-06 23:21 | Inpatient (IN) | payer MEDICARE, SELFPAY ==
[2023-03-06 23:30] VITALS: BP 134/79; PULSE 96; RESP 14; TEMP 36.8; O2SAT 95; BMI 27.8
[2023-03-07] VITALS (17 sets, daily range): BP systolic 108–136; BP diastolic 63–96; PULSE 80–95; RESP 16–20; TEMP 36.1–36.8; O2SAT 90–98
[2023-03-07 00:08] LABS: Basophils % 0.1 %; Eosinophils # 0.2 10^3/uL (0.0-0.8); Eosinophils % 2.9 %; Hematocrit 32.5 % (37.0-47.0); Hemoglobin 9.5 g/dL (11.5-15.3); Mean Corpuscular HGB Conc 29.2 g/dL (30.0-36.0); Mean Corpuscular Hemoglobin 22.5 pg (28.0-34.0); Mean Corpuscular Volume 76.8 fl (81-99); Mean Platelet Volume 9.4 fL (7.4-10.4); Monocytes # 0.5 10^3/uL (0.2-0.9); Monocytes % 7.3 %; Neutrophils # 5.35 10^3/uL (1.8-7.7); Neutrophils % 75.3 %; Nucleated Red Blood Cells % 0 %; Platelet Count 342 10^3/cmm (130-400); Red Blood Count 4.23 10^6/uL (4.1-5.3); Red Cell Distribution Width 17.1 % (12.1-15.1); White Blood Count 7.1 10^3/uL (4.0-10.0)
[2023-03-07 00:23] LABS: INR 1.04 (0.8-1.2)
[2023-03-07 00:28] LABS: Alanine Aminotransferase < 5 U/L (0-33); Albumin Level 3.8 g/dL (3.5-5.2); Alkaline Phosphatase 95 U/L (35-105); Anion Gap 11.1 (5-19); Aspartate Amino Transferase 14 U/L (0-32); Blood Urea Nitrogen 20 mg/dL (8-23); Calcium 8.6 mg/dL (8.5-10.5); Carbon Dioxide 28 mmol/L (22-29); Chloride 103 mmol/L (98-107); Globulin 2.6 g/dL (1.3-4.6); Glucose 139 mg/dL (65-115); Osmolality Calculated 291 mOsm/kg (285-295); Potassium 4.1 mmol/L (3.5-5.1); Sodium 138 mmol/L (136-145); Total Bilirubin 0.3 mg/dL (0.15-1.2); Total Protein 6.4 g/dL (6.6-8.7)
[2023-03-07 00:36] LABS: Creatinine Clr Calc Pharmacy 31.4845
--- NOTE | 2023-03-07 00:41 | XRR_ITS ---
PROCEDURE INFORMATION: Exam: XR Left Shoulder Exam date and time: 03/07/2023 12:44 AM Age: 87 years old Clinical indication: Injury or trauma; Fall; Blunt trauma (contusions or hematomas); Shoulder; Left; Patient HX: Patient fell yesterday and was imaged at outside hospital and noted to have proximal humeral fracture. Wearing immobilizer. Best films obtained. TECHNIQUE: Imaging protocol: Radiologic exam of the left shoulder. Views: 2 or more views. COMPARISON: CR XR shoulder LT min 2V* [id number] 06/01/2021 10:49 AM FINDINGS: Bones/joints: Chronic soft tissue calcifications about the humeral head. Suspected 9.3 mm calcific loose body again seen in the axillary recess. 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 Probable chronic deformity of the humeral head and neck again seen, similar to prior exam, consider further evaluation with a CT scan if concern for acute fracture remains given overlapping soft tissue calcifications. Soft tissues: See Bones/joints finding. XR/XR shoulder LT min 2V* [id number] IMPRESSION: 1. Chronic soft tissue calcifications about the humeral head. 2. Suspected 9.3 mm calcific loose body again seen in the axillary recess. 3. 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 4. Probable chronic deformity of the humeral head and neck again seen, similar to prior exam, consider further evaluation with a CT scan if concern for acute fracture remains given overlapping soft tissue calcifications.
[2023-03-07] MEDS: pantoprazole 40 mg SDV 80 MG IVP (01:03)
[2023-03-07] MEDS: pantoprazole 40 MG in sodium chloride 0.9% (plus) 100 ML 20 MG IV (01:16)
--- NOTE | 2023-03-07 01:36 | W.ED.GIBLEED ---
HPI - GI Bleed General: Chief complaint: GI Bleed Stated complaint: right arm pain Time Seen by Provider: 03/06/23 23:47 Source: patient Mode of arrival: ambulatory Limitations: no limitations History of Present Illness: 87-year-old female states that she been having syncopal events along with black tarry stools over the last week she was in [place] this morning at passed out hit her head is taken the ER this found to be anemic with a hemoglobin of 7.2 had Hemoccult positive stools I did transfuse her 2 units family states they wanted to admit her for GI bleed but family want to come back home which is [place] she states that she still felt weak she did have a humerus fracture from the fall she brought all of her paperwork her head CT there was normal. Denies any neck pain. Associated symptoms: Denies abdominal pain, chills, fever(s), headache(s), nausea, rash or vomiting Review of Systems Const: Denies: fever(s), chills, body aches or change in appetite ENMT: Denies: throat pain or dental pain Card: Denies: chest pain Resp: Denies: dyspnea GI: Denies: abdominal pain, nausea, vomiting or diarrhea : Denies: dysuria Musc: Denies: neck pain or back pain Skin/Breast: Denies: rash Neuro: Denies: headache(s) PFSH ED PFSH: Medical History Anemia Anxiety Belching symptom Bilateral lower extremity edema Chronic pain of both shoulders Closed left hip fracture Constipation Depression Patient reports she is doing well currently with depression and anxiety. Prior to hip fracture, hospitalization and rehab she was started on antidepressant/antianxiey medication. Patient reports she is compliant with medications. Diastolic blood pressure less than 80 mm Hg Elevated serum creatinine Hemoglobin A1c less than 7.0% History of esophageal dilatation Medication management Pineal gland, tumor benign Restless leg Shortness of breath Systolic blood pressure less than 130 mm Hg Vitamin D deficiency Surgical History History of appendectomy History of cataract surgery History of cholecystectomy Family History Other Cancer Social History Smoking and tobacco status: never smoked Alcohol intake: never Substance/Drug Use: never Current occupation: Retired Physical Exam Const: COMMON NORMALS: patient oriented x3 GENERAL APPEARANCE: in distress HENMT: COMMON NORMALS: normocephalic and atraumatic HEAD & SCALP: normocephalic and atraumatic Eye: COMMON NORMALS: Equal, round and reactive pupils present and EOMs intact bilaterally PUPIL: Yes Equal, round and reactive pupils present Neck/C-Spine: COMMON NORMALS: full ROM and supple Chest: COMMONS NORMALS: normal inspection of the chest and normal palpation of entire chest wall Resp: COMMON NORMALS: normal respiratory effort, No retractions, No use of accessory muscles and clear to auscultation bilaterally AUSCULTATION: clear to auscultation bilaterally Cardio: COMMON NORMALS: regular rate, regular rhythm and No murmurs present (Cardio) RATE: regular rate RHYTHM: regular rhythm GI: COMMON NORMALS: Normal to inspection, nondistended, normoactive bowel sounds present, Soft to palpation, non-tender and no masses PALPATION: Yes Soft to palpation Extremity: NARRATIVE EXTREMITY EXAM: Patient in a sling with left humerus tenderness Neuro: COMMON NORMALS: patient oriented x3, moves all extremities and no focal motor deficits Psych: COMMON NORMALS: mental status grossly normal, Normal thought process present and cooperative THOUGHT PROCESS: Normal thought process present Skin: COMMON NORMALS: no rashes or lesions noted and no wounds GENERAL SKIN EXAM: no rashes or lesions noted Course Vital Signs: Vital signs: Vital Signs Temperature 98.2 F 03/06/23 23:30 Pulse Rate 96 03/06/23 23:30 Respiratory Rate 14 03/06/23 23:30 Blood Pressure 134/79 03/06/23 23:30 Pulse Oximetry 95 03/06/23 23:30 Oxygen Delivery Me thod Room Air 03/06/23 23:30 MDM - GI Bleed Medical Decision Making Patient presents here with GI bleed she did receive a transfusion this morning at another hospital her vital signs here are normal I did speak to hospitalist will admit at this time. Medical Records I reviewed the patient's medical records. Lab Data I reviewed the patient's lab results. 03/06/23 23:56 03/06/23 23:56 Radiology Impressions Shoulder X-Ray 03/07/23 00:41 IMPRESSION: 1. Chronic soft tissue calcifications about the humeral head. 2. Suspected 9.3 mm calcific loose body again seen in the axillary recess. 3. 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 4. Probable chronic deformity of the humeral head and neck again seen, similar to prior exam, consider further evaluation with a CT scan if concern for acute fracture remains given overlapping soft tissue calcifications. Laboratory Results WBC 7.1 10^3/uL (4.0-10.0) 03/06/23 23:56 RBC 4.23 10^6/uL (4.1-5.3) 03/06/23 23:56 Hgb 9.5 g/dL (11.5-15.3) L 03/06/23 23:56 Hct 32.5 % (37.0-47.0) L 03/06/23 23:56 MCV 76.8 fl (81-99) L 03/06/23 23:56 MCH 22.5 pg (28.0-34.0) L 03/06/23 23:56 MCHC 29.2 g/dL (30.0-36.0) L 03/06/23 23:56 RDW 17.1 % (12.1-15.1) H 03/06/23 23:56 Plt Count 342 10^3/cmm (130-400) 03/06/23 23:56 MPV 9.4 fL (7.4-10.4) 03/06/23 23:56 Neut % (Auto) 75.3 % 03/06/23 23:56 Lymph % (Auto) 14.0 % 03/06/23 23:56 Caldwell % (Auto) 7.3 % 03/06/23 23:56 Eos % (Auto) 2.9 % 03/06/23 23:56 Baso % (Auto) 0.1 % 03/06/23 23:56 Neut # (Auto) 5.35 10^3/uL (1.8-7.7) 03/06/23 23:56 Lymph # (Auto) 1.0 10^3/uL (0.8-4.8) 03/06/23 23:56 Caldwell # (Auto) 0.5 10^3/uL (0.2-0.9) 03/06/23 23:56 Eos # (Auto) 0.2 10^3/uL (0.0-0.8) 03/06/23 23:56 Baso # (Auto) 0.0 10^3/uL (0.0-0.1) 03/06/23 23:56 Nucleated RBC % (auto) 0 % 03/06/23 23:56 Nucleated RBCs # 0.0 /100WBC 03/06/23 23:56 PT 13.90 SECONDS (12.1-14.9) 03/06/23 23:56 INR 1.04 (0.8-1.2) 03/06/23 23:56 Sodium 138 mmol/L (136-145) 03/06/23 23:56 Potassium 4.1 mmol/L (3.5-5.1) 03/06/23 23:56 Chloride 103 mmol/L (98-107) 03/06/23 23:56 Carbon Dioxide 28 mmol/L (22-29) 03/06/23 23:56 Anion Gap 11.1 (5-19) 03/06/23 23:56 BUN 20 mg/dL (8-23) 03/06/23 23:56 Creatinine 1.1 mg/dL (0.5-0.9) H 03/06/23 23:56 GFR Calculation Not Reportable 03/06/23 23:56 Glucose 139 mg/dL (65-115) H 03/06/23 23:56 Calculated Osmolality 291 mOsm/kg (285-295) 03/06/23 23:56 Calcium 8.6 mg/dL (8.5-10.5) 03/06/23 23:56 Total Bilirubin 0.3 mg/dL (0.15-1.2) 03/06/23 23:56 AST 14 U/L (0-32) 03/06/23 23:56 ALT < 5 U/L (0-33) 03/06/23 23:56 Alkaline Phosphatase 95 U/L (35-105) 03/06/23 23:56 Total Protein 6.4 g/dL (6.6-8.7) L 03/06/23 23:56 Albumin 3.8 g/dL (3.5-5.2) 03/06/23 23:56 Globulin 2.6 g/dL (1.3-4.6) 03/06/23 23:56 Blood Type O Positive 03/06/23 23:56 Rho(D) Type Positive 03/06/23 23:56 Antibody Screen Negative 03/06/23 23:56 Discharge Plan Discharge Patient Disposition: Admitted As Inpatient Admit Provider: Carleen Bennett Clinical Impression: Acute upper gastrointestinal bleeding, Closed fracture of left proximal humerus Condition: Stable Prescriptions: No Action pramipexole 0.25 mg tablet 0.25 mg PO DAILY Qty: 30 2RF ciprofloxacin HCl 500 mg tablet 500 mg PO Q12H 5 Days Qty: 10 0RF aspirin 81 mg tablet,delayed release (DR/EC) 81 mg PO DAILY 30 Days Qty: 30 0RF nitroglycerin 0.4 mg tablet, sublingual 0.4 mg sublingual Q5M PRN (Reason: chest pain) 30 Days Qty: 30 0RF Rx Instructions: do not exceed 3 doses per episode potassium chloride [Klor-Con M20] 20 mEq tablet,ER particles/crystals 20 meq PO DAILY 30 Days Qty: 30 0RF meloxicam 15 mg tablet 15 mg PO DAILY 30 Days Qty: 30 5RF albuterol sulfate [ProAir HFA] 90 mcg/actuation HFA aerosol inhaler 2 puff inhalation QID PRN (Reason: shortness of breath or wheezing) Qty: 8.5 1RF alprazolam 0.25 mg tablet 0.25 mg PO DAILY PRN (Reason: Anxiety) 30 Days Qty: 30 0RF furosemide 20 mg tablet 20 mg PO DAILY 30 Days Qty: 30 0RF hydroxyzine HCl 10 mg tablet 10 mg PO DAILY PRN (Reason: anxiety) Qty: 30 0RF atorvastatin 40 mg tablet 40 mg PO DAILY 30 Days Qty: 30 5RF citalopram [Celexa] 20 mg tablet 30 mg PO DAILY 30 Days Qty: 45 5RF Rx Instructions: 1.5 tabs daily Referrals: Mic Salguero MD [Primary Care Provider] - Coding Level of Care Code ED Steward/Stewardess Second Class for [facility] Jolene
--- NOTE | 2023-03-07 04:54 | PM.HP ---
Providers/Chief Complaint Admitting Physician: Carleen Bennett MD Primary Care Provider: Mic Salguero MD Chief Complaint: bleeding, arm pain, s/p fall History of Present Illness Irene Moon is a 87 year old female who presented to the emergency room with complaint of GI bleed. Mrs. Moon had been in [place] on Tuesday. She had a fall and was seen at a hospital in [facility] for this. She has had prior falls and fracture of the left humerus. What was felt to be possible acute fracture of the left humerus was noted given pain in the arm. Laboratory studies were done while she was in the emergency room and showed a hemoglobin of 7.2. She reported black stools for some period of time as well as dizziness and weakness prior to her fall. Stool was found to be Hemoccult positive. She received transfusion of 1 unit of packed red blood cells at outside facility with resultant hemoglobin greater than 10 per doctors notations. The doctor there wanted to admit her but she and her family declined. They had been instructed to come to the hospital here upon arrival back and [place]. She had received 80 mg of IV Protonix, some IV fluids and pain and nausea medicine at the outside facility. Hemoglobin here is 9.5. She denies any vomiting of bright red blood. No bright red blood per rectum. Describes black stools at least for several weeks. She probably takes ibuprofen maybe once a week for pain. She has been prescribed meloxicam in the past but denies taking any currently. She herself has some dementia however so history is limited. She has not had previous GI bleed before. Does not recall having had an EGD in the past. She does describe increased reflux symptoms lately and frequent belching. Denies any other changes in stooling beside dark color. She received additional Protonix in the emergency room here. Hospitalist were contacted for admission. She has had a total of 3 falls in the past week or so. She did hit her head several days ago but denied loss of consciousness. Has bruising around her left eye, nasal bridge and forehead. She has pain at her left arm, right medial knee and the back of her head today. Denies any shortness of breath. She has some chest wall discomfort in an area where she has a large bruise but no chest pain otherwise. Not currently dizzy. Review of Systems General: Reports: Other (ROS as per HPI or as otherwise noted here) Medications/Allergies Home Medications Medication Instructions Recorded Confirmed Last Taken Type meloxicam 15 mg tablet 15 mg PO DAILY 30 days #30 tabs 12/25/21 02/08/23 Unknown Rx aspirin 81 mg tablet,delayed 81 mg PO DAILY 30 days #30 tabs 04/15/22 02/08/23 Unknown Rx release nitroglycerin 0.4 mg sublingual 0.4 mg sublingual Q5M PRN chest 04/15/22 02/08/23 Unknown Rx tablet pain 30 days #30 tabs potassium chloride 20 mEq 20 meq PO DAILY 30 days #30 tabs 07/15/22 02/08/23 Unknown Rx tablet,extended release(part/cryst) (Klor-Con M) albuterol sulfate 90 mcg/actuation 2 puff inhalation QID PRN 07/27/22 02/08/23 Unknown Rx aerosol inhaler (ProAir HFA) shortness of breath or wheezing #8.5 grams alprazolam 0.25 mg tablet 0.25 mg PO DAILY PRN Anxiety 30 01/27/23 02/08/23 Unknown Rx days #30 tabs furosemide 20 mg tablet 20 mg PO DAILY 30 days #30 tabs 02/07/23 02/08/23 Unknown Rx ciprofloxacin HCl 500 mg tablet 500 mg PO Q12H 5 days #10 tabs 02/08/23 02/08/23 Unknown Rx pramipexole 0.25 mg tablet 0.25 mg PO DAILY #30 tabs 02/08/23 02/08/23 Unknown Rx hydroxyzine HCl 10 mg tablet 10 mg PO DAILY PRN anxiety #30 tabs 02/14/23 Unknown Rx atorvastatin 40 mg tablet 40 mg PO DAILY 30 days #30 tabs 03/01/23 Unknown Rx citalopram 20 mg tablet (Celexa) 30 mg PO DAILY 30 days #45 tabs 03/01/23 Unknown Rx Allergies Allergy/AdvReac Type Severity Reaction Status Date / Time No Known Drug Allergies Allergy Intermediate na Verified 03/06/23 23:29 Additional Medication Information Above medication list has not yet reconciled. Patient does not recognize the name meloxicam and denies being on it but indicates that she takes ibuprofen maybe once a week. PFSH Acute PFSH: Medical History (Updated 03/07/23 @ 07:34 by Carleen Bennett MD) Anxiety Chronic pain of both shoulders Depression Diastolic dysfunction Echo 03/202222 grade 1 diastolic dysfunction, EF 65% Dyslipidemia Pineal gland, tumor benign Restless leg Vitamin D deficiency Surgical History (Updated 03/07/23 @ 05:02 by Carleen Bennett MD) History of appendectomy History of arthroplasty of left hip History of cataract surgery History of cholecystectomy History of esophageal dilatation Family History (Updated 03/07/23 @ 07:20 by Carleen Bennett MD) Other Cancer Denies family history of GIB (gastrointestinal bleeding) Social History Smoking and tobacco status: never smoked Alcohol intake: never Substance/Drug Use: never Current occupation: Retired Vitals/I&O/Wt Last Vital Signs Temp 98.2 F 03/07/23 02:07 Pulse 95 03/07/23 02:07 Resp 16 03/07/23 02:07 BP 136/96 03/07/23 02:07 Pulse Ox 95 03/07/23 02:07 O2 Del Method Room Air 03/07/23 02:35 Weight last 48 hrs Weight 66.678 kg Physical Exam Narrative: Patient is asleep, easily arousable. Oriented to person place and situation though not able to provide known answers to some questions. She has bruising noted around her left eye and nasal bridge extending up into the central and left side of her forehead. No photophobia. Extraocular movements are intact. Slightly dry mucous membranes. Neck is supple. Lungs are clear to auscultation. She has a regular rate and rhythm. Chest wall is tender to palpation anteriorly. Large area of bruising noted in a somewhat square fashion on the chest wall. Area outlined with marker. Pain of the left upper extremity. Left arm splint in place around her chest wall and left upper extremity. Both hands are puffy. Abdomen is soft, nontender with positive bowel sounds. Trace to 1+ pitting edema bilateral lower extremities. Both legs are puffy. She has some mild bruising noted to the right medial knee. A few other scattered bruises are noted. Speech is clear. Able to move fingers of left hand with intact sensation. Handgrip is strong right hand. Strength equal at both feet. Gait not currently assessed. Data 03/06/23 23:56 03/06/23 23:56 Other Labs: Radiology Impressions Shoulder X-Ray 03/07/23 00:41 IMPRESSION: 1. Chronic soft tissue calcifications about the humeral head. 2. Suspected 9.3 mm calcific loose body again seen in the axillary recess. 3. 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 4. Probable chronic deformity of the humeral head and neck again seen, similar to prior exam, consider further evaluation with a CT scan if concern for acute fracture remains given overlapping soft tissue calcifications. Laboratory Results WBC 5.5 10^3/uL (4.0-10.0) 03/07/23 06:20 RBC 3.61 10^6/uL (4.1-5.3) L 03/07/23 06:20 Hgb 7.8 g/dL (11.5-15.3) L 03/07/23 06:20 Hct 27.7 % (37.0-47.0) L 03/07/23 06:20 MCV 76.7 fl (81-99) L 03/07/23 06:20 MCH 21.6 pg (28.0-34.0) L 03/07/23 06:20 MCHC 28.2 g/dL (30.0-36.0) L 03/07/23 06:20 RDW 17.0 % (12.1-15.1) H 03/07/23 06:20 Plt Count 265 10^3/cmm (130-400) 03/07/23 06:20 MPV 10.2 fL (7.4-10.4) 03/07/23 06:20 Neut % (Auto) 71.0 % 03/07/23 06:20 Lymph % (Auto) 17.4 % 03/07/23 06:20 Bowman % (Auto) 6.7 % 03/07/23 06:20 Eos % (Auto) 4.0 % 03/07/23 06:20 Baso % (Auto) 0.4 % 03/07/23 06:20 Neut # (Auto) 3.92 10^3/uL (1.8-7.7) 03/07/23 06:20 Lymph # (Auto) 1.0 10^3/uL (0.8-4.8) 03/07/23 06:20 Bowman # (Auto) 0.4 10^3/uL (0.2-0.9) 03/07/23 06:20 Eos # (Auto) 0.2 10^3/uL (0.0-0.8) 03/07/23 06:20 Baso # (Auto) 0.0 10^3/uL (0.0-0.1) 03/07/23 06:20 Nucleated RBC % (auto) 0 % 03/07/23 06:20 Nucleated RBCs # 0.0 /100WBC 03/07/23 06:20 PT 13.90 SECONDS (12.1-14.9) 03/06/23 23:56 INR 1.04 (0.8-1.2) 03/06/23 23:56 APTT 26.0 SECONDS (23.9-36.7) 03/07/23 06:20 Sodium 138 mmol/L (136-145) 03/06/23 23:56 Potassium 4.1 mmol/L (3.5-5.1) 03/06/23 23:56 Chloride 103 mmol/L (98-107) 03/06/23 23:56 Carbon Dioxide 28 mmol/L (22-29) 03/06/23 23:56 Anion Gap 11.1 (5-19) 03/06/23 23:56 BUN 20 mg/dL (8-23) 03/06/23 23:56 Creatinine 1.1 mg/dL (0.5-0.9) H 03/06/23 23:56 GFR Calculation Not Reportable 03/06/23 23:56 Glucose 139 mg/dL (65-115) H 03/06/23 23:56 Calculated Osmolality 291 mOsm/kg (285-295) 03/06/23 23:56 Calcium 8.6 mg/dL (8.5-10.5) 03/06/23 23:56 Total Bilirubin 0.3 mg/dL (0.15-1.2) 03/06/23 23:56 AST 14 U/L (0-32) 03/06/23 23:56 ALT < 5 U/L (0-33) 03/06/23 23:56 Alkaline Phosphatase 95 U/L (35-105) 03/06/23 23:56 Total Protein 6.4 g/dL (6.6-8.7) L 03/06/23 23:56 Albumin 3.8 g/dL (3.5-5.2) 03/06/23 23:56 Globulin 2.6 g/dL (1.3-4.6) 03/06/23 23:56 Blood Type O Positive 03/06/23 23:56 Rho(D) Type Positive 03/06/23 23:56 Antibody Screen Negative 03/06/23 23:56 A&P Assessment and plan (1) Frequent falls: With at least 3 over the last week, most recent on 03/06 (2) Anemia: Microcytic anemia, iron deficiency due to GI blood losses, likely acute on chronic, status post 1 unit of packed red blood cells at outside facility on 03/06 (3) Acute upper gastrointestinal bleeding: As evidenced by recent upper GI symptoms, black stools lately, reported use of NSAIDs at least weekly for pain and anemia requiring blood (4) Closed fracture of left proximal humerus: From radiology report may be a chronic fracture but given pain after fall on 03/06, may be indicative of an acute fracture (5) Diastolic dysfunction: Chronically on diuretic therapy per available information (6) Dyslipidemia: Chronically on statin therapy per available information (7) Anxiety: Chronically on hydroxyzine for anxiety along with as needed alprazolam; also on citalopram for depression per available information (8) Restless leg: Chronically on Mirapex per available information Plan Observation admission Serial hemoglobin Surgical consultation for EGD, discussed with Dr. Nuñez PPI IV for now Keep n.p.o. for planned procedure EKG prior to procedure Check TIBC Hold NSAIDs which are also discussed with patient who expressed understanding though will need to further discuss with family Has been typed in the event she needs blood but not yet crossmatched Orthopedic consultation for humerus fracture CT of the left humerus has been ordered without contrast Pain control Low volume IV fluids while n.p.o. Monitor for signs of volume overload given history of diastolic dysfunction Home meds currently held while n.p.o.; notified nursing staff of need to be clarified for accurate reconciliation PT/OT evaluation Fall precautions Supportive care otherwise VTE prophylaxis: SCD, no pharmacological prophylaxis due to GI bleed GI Prophylaxis: Currently on IV PPI Telemetry: Not currently indicated Brown: Not currently indicated Line(s): PIV Disposition plan: Anticipate discharge home with close outpatient follow-up at this time. Follow-up will likely include surgery, orthopedics and primary care provider. May benefit from some Home Health PT/OT, nurse care. Code Status: Currently full code Attestations Medical Necessity Statement*: Currently anticipate a stay less than two midnights in a patient with anemia, upper GI bleed who was transfused at outside facility 03/06. Current hemoglobin 9.5. Does describe recent melanotic stools and use of NSAIDs. Vitals are presently stable. In addition she has left humerus fracture after a fall of unclear acuity that will require further evaluation. She has had multiple falls in the past week. Diagnoses Frequent falls R29.6 Anemia D64.9 Acute upper gastrointestinal bleeding K92.2 Closed fracture of left proximal humerus S42.202A Diastolic dysfunction I51.89 Dyslipidemia E78.5 Anxiety F41.9 Restless leg G25.81
[2023-03-07] MEDS: D5-NS 0.45% + KCL 20 mEq 20 MEQ/1,000 ML BAG 75 MEQ IV ×2 (05:35→19:16)
[2023-03-07 06:47] LABS: Basophils % 0.4 %; Eosinophils # 0.2 10^3/uL (0.0-0.8); Hematocrit 27.7 % (37.0-47.0); Hemoglobin 7.8 g/dL (11.5-15.3); Lymphocytes % 17.4 %; Mean Corpuscular HGB Conc 28.2 g/dL (30.0-36.0); Mean Corpuscular Hemoglobin 21.6 pg (28.0-34.0); Mean Corpuscular Volume 76.7 fl (81-99); Mean Platelet Volume 10.2 fL (7.4-10.4); Monocytes # 0.4 10^3/uL (0.2-0.9); Monocytes % 6.7 %; Neutrophils # 3.92 10^3/uL (1.8-7.7); Nucleated Red Blood Cells % 0 %; Platelet Count 265 10^3/cmm (130-400); Red Blood Count 3.61 10^6/uL (4.1-5.3); White Blood Count 5.5 10^3/uL (4.0-10.0)
--- NOTE | 2023-03-07 08:26 | ANES.PREANE2 ---
Pre-Anesthetic Assessment Height/Weight: Height 1.55 m Weight 66.678 kg Temp Pulse Resp BP Pulse Ox O2 Del Method 97.0 F L 94 17 134/81 96 Room Air 03/07/23 08:19 03/07/23 08:19 03/07/23 08:19 03/07/23 08:19 03/07/23 08:19 03/07/23 08:14 Operation Date: 03/07/23 08:15 Proposed Procedures p EGD(Not Applicable) - Moses Nuñez DO Familial anesthetic complications: None Was Beta Keshawn taken within 24 hours: N/A Was Clonidine taken within 24 hours: N/A Last intake: > 8hrs Social No alcohol and No tobacco Exam alert, oriented x 3, clear to auscultation bilaterally and regular rate & rhythm Airway Mallampati: Class II Dentition: chipped and full CV/HEM Anemia and Congestive Heart Failure (grade I diastolic) Neuropsych pineal gland tumor - benign, 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 Anesthetic Plan ASA status: 3 Anesthesia: MAC Risk of > 500 ml blood loss (7ml/kg in children): No Medications/Allergies Home Medications Medication Instructions Recorded Confirmed Last Taken Type meloxicam 15 mg tablet 15 mg PO DAILY 30 days #30 tabs 12/25/21 03/07/23 Unknown Rx aspirin 81 mg tablet,delayed 81 mg PO DAILY 30 days #30 tabs 04/15/22 03/07/23 Unknown Rx release nitroglycerin 0.4 mg sublingual 0.4 mg sublingual Q5M PRN chest 04/15/22 03/07/23 Unknown Rx tablet pain 30 days #30 tabs potassium chloride 20 mEq 20 meq PO DAILY 30 days #30 tabs 07/15/22 03/07/23 Unknown Rx tablet,extended release(part/cryst) (Klor-Con M) albuterol sulfate 90 mcg/actuation 2 puff inhalation QID PRN 07/27/22 03/07/23 Unknown Rx aerosol inhaler (ProAir HFA) shortness of breath or wheezing #8.5 grams furosemide 20 mg tablet 20 mg PO DAILY 30 days #30 tabs 02/07/23 03/07/23 Unknown Rx pramipexole 0.25 mg tablet 0.25 mg PO DAILY #30 tabs 02/08/23 03/07/23 Unknown Rx hydroxyzine HCl 10 mg tablet 10 mg PO DAILY PRN anxiety #30 tabs 02/14/23 03/07/23 Unknown Rx atorvastatin 40 mg tablet 40 mg PO DAILY 30 days #30 tabs 03/01/23 03/07/23 Unknown Rx citalopram 20 mg tablet (Celexa) 30 mg PO DAILY 30 days #45 tabs 03/01/23 03/07/23 Unknown Rx pramipexole 0.125 mg tablet 1 mg PO DAILY 03/07/23 03/07/23 Unknown History Allergies Allergy/AdvReac Type Severity Reaction Status Date / Time No Known Drug Allergies Allergy Intermediate na Verified 03/06/23 23:29 Current Medications Generic Name Dose Route Start Last Admin Trade Name Freq PRN Reason Stop Dose Admin Potassium Chloride/Dextrose/Sod Cl 20 meq in 1,000 mls @ 75 mls/hr 03/07/23 05:15 03/07/23 05:35 D5-Ns 0.45% + Kcl 20 Meq IV 75 mls/hr .[id number] SHERWIN Administration Additional Medication Information Above medication list has not yet reconciled. Patient does not recognize the name meloxicam and denies being on it but indicates that she takes ibuprofen maybe once a week. [facility] Anesthesia Medical History (Updated 03/07/23 @ 07:34 by Carleen Bennett MD) Anxiety Chronic pain of both shoulders Depression Diastolic dysfunction Echo 03/202222 grade 1 diastolic dysfunction, EF 65% Dyslipidemia Pineal gland, tumor benign Restless leg Vitamin D deficiency Surgical History (Updated 03/07/23 @ 05:02 by Carleen Bennett MD) History of appendectomy History of arthroplasty of left hip History of cataract surgery History of cholecystectomy History of esophageal dilatation Family History (Updated 03/07/23 @ 07:20 by Carleen Bennett MD) Other Cancer Denies family history of GIB (gastrointestinal bleeding) Social History Smoking and tobacco status: never smoked Alcohol intake: never Substance/Drug Use: never Current occupation: Retired Data Anesthesia 03/07/23 06:20 03/06/23 23:56 Short CBC 03/06/23 03/07/23 Range/Units 23:56 06:20 WBC 7.1 5.5 (4.0-10.0) 10^3/uL Hgb 9.5 L 7.8 L (11.5-15.3) g/dL Hct 32.5 L 27.7 L (37.0-47.0) % MCV 76.8 L 76.7 L (81-99) fl Plt Count 342 265 (130-400) 10^3/cmm Neut % (Auto) 75.3 71.0 % Neut # (Auto) 5.35 3.92 (1.8-7.7) 10^3/uL BMP 03/06/23 23:56 Sodium 138 Potassium 4.1 Chloride 103 Carbon Dioxide 28 BUN 20 Creatinine 1.1 H Glucose 139 H Calcium 8.6 Liver Function 03/06/23 Range/Units 23:56 Total Bilirubin 0.3 (0.15-1.2) mg/dL AST 14 (0-32) U/L ALT < 5 (0-33) U/L Alkaline Phosphatase 95 (35-105) U/L Albumin 3.8 (3.5-5.2) g/dL Blood Bank 03/06/23 23:56 Blood Type O Positive Rho(D) Type Positive Antibody Screen Negative Coa 03/06/23 03/07/23 23:56 06:20 PT 13.90 INR 1.04 APTT 26.0 Cardiac Studies: Echocardiogram 04/09/22
--- NOTE | 2023-03-07 08:34 | PM.CONSULT ---
Providers/Reason For Consult Consulting Physician/Specialty*: Dr. Moses Nuñez, DO/General surgery Reason for Consult*: GI bleed Attending Physician: Lissette Pyle MD Primary Care Provider: Mic Salguero MD History of Present Illness History of Present Illness Irene Moon is a 87 year old female who presented to the hospital with dark stools for the last few weeks. She has had 3 falls in the past week resulting in a left humerus fracture and bruising to her face. She was found to be anemic. She reports that she gets some epigastric abdominal pain that is sharp and burning and does not radiate. Eating does not make the pain worse. Palpation makes pain worse. She does report heartburn but says she does not take anything for it. Denies any nausea, vomiting and/or hematochezia. Family reports that she has Alzheimer's dementia, but she is alert and oriented x3 for me this morning. Review of Systems General: Reports: 10 or more systems reviewed and unremarkable except in HPI and below Medications/Allergies Home Medications Medication Instructions Recorded Confirmed Last Taken Type meloxicam 15 mg tablet 15 mg PO DAILY 30 days #30 tabs 12/25/21 03/07/23 Unknown Rx aspirin 81 mg tablet,delayed 81 mg PO DAILY 30 days #30 tabs 04/15/22 03/07/23 Unknown Rx release nitroglycerin 0.4 mg sublingual 0.4 mg sublingual Q5M PRN chest 04/15/22 03/07/23 Unknown Rx tablet pain 30 days #30 tabs potassium chloride 20 mEq 20 meq PO DAILY 30 days #30 tabs 07/15/22 03/07/23 Unknown Rx tablet,extended release(part/cryst) (Klor-Con M) albuterol sulfate 90 mcg/actuation 2 puff inhalation QID PRN 07/27/22 03/07/23 Unknown Rx aerosol inhaler (ProAir HFA) shortness of breath or wheezing #8.5 grams furosemide 20 mg tablet 20 mg PO DAILY 30 days #30 tabs 02/07/23 03/07/23 Unknown Rx pramipexole 0.25 mg tablet 0.25 mg PO DAILY #30 tabs 02/08/23 03/07/23 Unknown Rx hydroxyzine HCl 10 mg tablet 10 mg PO DAILY PRN anxiety #30 tabs 02/14/23 03/07/23 Unknown Rx atorvastatin 40 mg tablet 40 mg PO DAILY 30 days #30 tabs 03/01/23 03/07/23 Unknown Rx citalopram 20 mg tablet (Celexa) 30 mg PO DAILY 30 days #45 tabs 03/01/23 03/07/23 Unknown Rx pramipexole 0.125 mg tablet 1 mg PO DAILY 03/07/23 03/07/23 Unknown History Allergies Allergy/AdvReac Type Severity Reaction Status Date / Time No Known Drug Allergies Allergy Intermediate na Verified 03/06/23 23:29 Current Medications Generic Name Dose Route Start Last Admin Trade Name Freq PRN Reason Stop Dose Admin Potassium Chloride/Dextrose/Sod Cl 20 meq in 1,000 mls @ 75 mls/hr 03/07/23 05:15 03/07/23 05:35 D5-Ns 0.45% + Kcl 20 Meq IV 75 mls/hr .[id number] SHERWIN Administration PFSH Acute PFSH: Medical History Anxiety Chronic pain of both shoulders Depression Diastolic dysfunction Echo 03/202222 grade 1 diastolic dysfunction, EF 65% Dyslipidemia Pineal gland, tumor benign Restless leg Vitamin D deficiency Surgical History History of appendectomy History of arthroplasty of left hip History of cataract surgery History of cholecystectomy History of esophageal dilatation Family History Other Cancer Denies family history of GIB (gastrointestinal bleeding) Social History Smoking and tobacco status: never smoked Alcohol intake: never Substance/Drug Use: never Current occupation: Retired Vitals/I&O/Wt Last Vital Signs Temp 97.0 F L 03/07/23 08:19 Pulse 94 03/07/23 08:19 Resp 17 03/07/23 08:19 BP 134/81 03/07/23 08:19 Pulse Ox 96 03/07/23 08:19 O2 Del Method Room Air 03/07/23 08:14 03/06/23 03/07/23 03/07/23 22:59 06:59 14:59 Intake Total 91.667 / 91.667 Balance 91.667 / 91.667 Weight last 48 hrs Weight 147 lb Physical Exam Narrative: General : Patient is well developed , no acute distress, oriented x3 Head : Normal cephalic, there is ecchymosis over her face Ears : Pinnae and external canal are normal. Hearing is normal. Eyes : PERRLA, Sclera and injection are normal. No conjunctival discharge. Nose : Mucous membranes are without erythema. Throat : buccal mucosa is normal, gums are without significant recession or hypertrophy. Lungs : Equal chest rise bilaterally, no use of accessory muscles, trachea is midline. Cor : Rate and rhythm are normal. Abdomen : Soft, ND, mild epigastric tenderness, no g/r/m Extremities : No edema, no cyanosis or clubbing, dorsalis pedis pulses are present bilaterally, non-tender to palpation of calves. Left upper extremity is in a sling Back : non-tender to palpation, no CVA tenderness. Neuro : CN II - XII intact, Upper and lower extremities have equal and full strength Data 03/07/23 06:20 03/06/23 23:56 A&P Assessment and plan (1) GI bleed: (2) Anemia: Plan EGD The risks and benefits of the procedure, including bleeding, infection, intestinal perforation requiring surgery, missed lesion were explained to the patient. The patient is understanding of the risks and wishes to proceed. Coding Level of Care Code 76356 Diagnoses GI bleed K92.2 Anemia D64.9
[2023-03-07] MEDS: sodium chloride 0.9% 1,000 ML 30 ML IV (08:43)
[2023-03-07 08:53] LABS: Iron 20 ug/dL (37-145); Percent Saturation 5.6 % (20-50); Total Iron Binding Capacity 352 mcg/dl; Unsaturated Iron Binding 332 ug/dL (112-347)
--- NOTE | 2023-03-07 09:20 | ANE.PACU2 ---
Inpatient post-anesthesia follow up: Airway intact: Yes Vital signs: Temperature 97.5 F Pulse Rate 82 Respiratory Rate 16 Blood Pressure 128/67 Pulse Oximetry 95 Oxygen Delivery Me thod Room Air Oxygen Flow Rate Fraction of Inspir ed Oxygen Hydration adequate: Yes Nausea and vomiting: Yes Pain level: 1 Mental status: Baseline
--- NOTE | 2023-03-07 09:46 | ECG_ITS ---
[facility] Test Date: 2023-03-07 Pat Name: Irene Moon Department: Room: 253 Gender: Female Staff [employer]ical [employer]: : 1935 Requested By: Carleen Bennett Order Number: [id number] Gricelda MD: Lucy Batista M.D. Measurements Intervals [place] Rate: 88 P: 54 IL: 157 QRS: -40 QRSD: 138 T: 119 QT: 431 QTc: 522 Interpretive Statements SINUS RHYTHM LEFT AXIS DEVIATION [QRS AXIS < -30] INTRAVENTRICULAR CONDUCTION DELAY [130+ ms QRS DURATION] POSSIBLE ANTERIOR MYOCARDIAL INFARCTION , OF INDETERMINATE AGE [30 ms Q WAVE IN V3/V4, OR R < 0.2 mV IN V4] Compared to ECG 08/23/2019 23:54:28 Myocardial infarct finding now present Electronically Signed On 03-07-2023 21:29:24 CDT by Lucy Batista M.D. [id number]
--- NOTE | 2023-03-07 10:49 | CT_ITS ---
WS: [id number] NONCONTRAST CT LEFT HUMERUS TECHNIQUE: Noncontrast CT LEFT humerus with coronal and sagittal reformatted images. CLINICAL INFORMATION: s/p fall COMPARISON: None. DLP: 555.[address] scans at [facility] use at least one of these dose optimization techniques: automated e xposure control; mA and/or kV adjustment per patient size (includes targeted exams where dose is matc hed to clinical indication); or iterative reconstruction. FINDINGS: Images somewhat limited due to positioning. Osteopenia. 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 Chronic appearing healed fracture deformity involving the humeral neck with mild imp action. Hypertrophic changes about the humeral head with hypertrophic changes and periarticular calci fication. No definite acute fractures. [id number] articulation glenohumeral joint. LEFT lung is wel l aerated. Slight LEFT basilar atelectasis. Small moderate esophageal hiatal hernia. Partially visual ized. CT/CT humerus LT wo con* [id number] IMPRESSION: 1. Chronic appearing healed fracture deformity involving the LEFT humeral neck with mild impaction of the humeral shaft. This is similar in appearance the pr ior shoulder radiographs June 02, 2021. 2. No definite evidence of acute fracture. 3. Advanced degenerative arthritis glenohumeral joint with [id number] articu lation. Associated hypertrophic changes. 4. Moderate degenerative arthritis at the AC joint. 5. No other acute findings. Message LEFT for Lissette Pyle MD at 03/07/2023 12:13 PM
[2023-03-07 12:36] LABS: Hematocrit 26.9 % (37.0-47.0)
--- NOTE | 2023-03-07 13:12 | PM.MISC ---
Miscellaneous Note Purpose of Documentation: Overnight labs and H&P reviewed. Underwent upper GI endoscopy this morning which showed retained food and small hiatal hernia. There was no evidence of gastritis or bleeding. She is planned for a colonoscopy, likely tomorrow versus Tuesday. Hemoglobin stable.
--- NOTE | 2023-03-07 16:45 | PM.CONSULT ---
Providers/Reason For Consult Consulting Physician/Specialty*: Pasha Fox DO/orthopedic surgery Reason for Consult*: Left proximal humerus fracture (acute versus chronic) Requesting Physician: Dr. Bennett Attending Physician: Lissette Pyle MD Primary Care Provider: Mic Salguero MD History of Present Illness History of Present Illness Irene Moon is a 87 year old female who presented to the emergency room with complaint of GI bleed.? Mrs. Moon had been in [place] on Tuesday.? She had a fall and was seen at a hospital in [facility] for this.? She has had prior falls and? fracture of the left humerus.? What was felt to be possible acute fracture of the left humerus was noted given pain in the arm.? Laboratory studies were done while she was in the emergency room and showed a hemoglobin of 7.2.?? Hospitalist were contacted for admission for management of anemia. Orthopedics was consulted for evaluation of left shoulder pain as she currently is in a shoulder immobilizer and complaining of left shoulder pain. Remote history reveals several years ago she sustained a left proximal humerus fracture on our imaging this dates beyond 2012 a fracture was noted. Orthopedics consulted for treatment recommendations as well as for evaluation. CT scan ordered of the left shoulder. Review of Systems General: Reports: 10 or more systems reviewed and unremarkable except in HPI and below Medications/Allergies Home Medications Medication Instructions Recorded Confirmed Last Taken Type meloxicam 15 mg tablet 15 mg PO DAILY 30 days #30 tabs 12/25/21 03/07/23 Unknown Rx aspirin 81 mg tablet,delayed 81 mg PO DAILY 30 days #30 tabs 04/15/22 03/07/23 Unknown Rx release nitroglycerin 0.4 mg sublingual 0.4 mg sublingual Q5M PRN chest 04/15/22 03/07/23 Unknown Rx tablet pain 30 days #30 tabs potassium chloride 20 mEq 20 meq PO DAILY 30 days #30 tabs 07/15/22 03/07/23 Unknown Rx tablet,extended release(part/cryst) (Klor-Con M) albuterol sulfate 90 mcg/actuation 2 puff inhalation QID PRN 07/27/22 03/07/23 Unknown Rx aerosol inhaler (ProAir HFA) shortness of breath or wheezing #8.5 grams furosemide 20 mg tablet 20 mg PO DAILY 30 days #30 tabs 02/07/23 03/07/23 Unknown Rx pramipexole 0.25 mg tablet 0.25 mg PO DAILY #30 tabs 02/08/23 03/07/23 Unknown Rx hydroxyzine HCl 10 mg tablet 10 mg PO DAILY PRN anxiety #30 tabs 02/14/23 03/07/23 Unknown Rx atorvastatin 40 mg tablet 40 mg PO DAILY 30 days #30 tabs 03/01/23 03/07/23 Unknown Rx citalopram 20 mg tablet (Celexa) 30 mg PO DAILY 30 days #45 tabs 03/01/23 03/07/23 Unknown Rx pramipexole 0.125 mg tablet 1 mg PO DAILY 03/07/23 03/07/23 Unknown History Allergies Allergy/AdvReac Type Severity Reaction Status Date / Time No Known Drug Allergies Allergy Intermediate na Verified 03/06/23 23:29 Current Medications Generic Name Dose Route Start Last Admin Trade Name Freq PRN Reason Stop Dose Admin Potassium Chloride/Dextrose/Sod Cl 20 meq in 1,000 mls @ 75 mls/hr 03/07/23 05:15 03/07/23 05:35 D5-Ns 0.45% + Kcl 20 Meq IV 75 mls/hr .[id number] SHERWIN Administration Sodium Chloride 1,000 mls @ 30 mls/hr 03/07/23 08:30 03/07/23 09:08 Sodium Chloride 0.9% IV 03/08/23 08:29 Infused .Q24H SHERWIN Infusion PFSH Acute PFSH: Medical History Anxiety Chronic pain of both shoulders Depression Diastolic dysfunction Echo 03/202222 grade 1 diastolic dysfunction, EF 65% Dyslipidemia Pineal gland, tumor benign Restless leg Vitamin D deficiency Surgical History History of appendectomy History of arthroplasty of left hip History of cataract surgery History of cholecystectomy History of esophageal dilatation Family History Other Cancer Denies family history of GIB (gastrointestinal bleeding) Social History Smoking and tobacco status: never smoked Alcohol intake: never Substance/Drug Use: never Current occupation: Retired Vitals/I&O/Wt Last Vital Signs Temp 97.5 F L 03/07/23 16:00 Pulse 92 03/07/23 16:00 Resp 19 H 03/07/23 16:00 BP 130/75 03/07/23 16:00 Pulse Ox 96 03/07/23 16:00 O2 Del Method Nasal Cannula 03/07/23 16:00 03/07/23 03/07/23 03/07/23 06:59 14:59 22:59 Intake Total 91.667 / 91.667 510 / 510 Balance 91.667 / 91.667 510 / 510 Weight last 48 hrs Weight 147 lb Physical Exam Narrative: Orthopedic examination: Examination of the left shoulder shoulder immobilizer is on in place patient is unable to actively range the shoulder secondary to pain and discomfort. Patient has swelling and ecchymosis as well as tenderness palpation over the medial third of the clavicle near the SC joint. No tenderness to palpation over the lateral aspect of the shoulder or the proximal humerus she has no pain to palpation. Gross motor and sensory is intact with axillary nerve motor and sensory intact as well as gross motor and sensory intact the left lower extremity. Hands warm well perfused with cap refill less than 2 seconds. No ecchymosis or swelling noted about the left shoulder at the proximal humerus. Secondary survey examination: She has no pain with range of motion of the right shoulder elbow wrist or hand with gross motor and sensory intact. Bilateral pelvic compression test demonstrates normal findings with no pain. Able to tolerate logroll examination of the bilateral lower extremities and also able to perform straight leg raise of the bilateral lower extremities gross motor and sensory intact of the bilateral lower extremities with no evidence of deformity or tenderness to palpation of bilateral extremity joints. Data 03/08/23 06:24 03/08/23 06:[address]: My impression: Review of patient's CT scan the left shoulder demonstrates an old healed left proximal humerus fracture with now [id number] arthritis of the left glenohumeral joint., I did request that a CT scan be opened up in the window of viewing to visualize the SC joint which shows the SC joint is located however a medial clavicle fracture is noted with comminution. Radiologist's impression: Addendum [id number] increased with additional reformatted images to include the medial clavicle. New images demonstrate comminuted fracture of the proximal clavicle with overriding fracture fragments. Mid and distal clavicle are displaced anteriorly approximately one shaft width. Associated soft tissue edema. Additional areas of slightly comminuted fracture involving the proximal clavicle at the sternoclavicular articulation. No? dislocation. No pneumothorax. CT/CT humerus LT wo con* [id number] IMPRESSION: ? 1.? Chronic appearing healed fracture deformity involving the LEFT humeral neck with mild impaction of the humeral shaft. This is similar in appearance the prior shoulder radiographs June 02, 2021. 2.? No definite evidence of acute fracture. 3.? Advanced degenerative arthritis glenohumeral joint with [id number] articulation. Associated hypertrophic changes. 4.? Moderate degenerative arthritis at the AC joint. 5.? No other acute findings. A&P Assessment and plan (1) Closed left clavicular fracture: Plan Patient presents after sustaining a fall to the left shoulder she complains of pain over the clavicle region and she has tenderness to palpation in this area CT scan reviewed and demonstrates a medial proximal clavicle fracture this is comminuted but overall in reasonable alignment there is no SC joint dislocation appreciated. At this point in time I did review the CT scan findings and there is no evidence of acute fracture at the glenohumeral joint or at the proximal humerus this is an old healed fracture or acute injury is the clavicle fracture this can be treated nonoperatively with a simple sling would recommend nonoperative treatment in a simple sling can ice as needed for pain as well as recommend pain medication as patient needs. No acute orthopedic surgical intervention required at this time she can follow-up with orthopedics in 2 weeks. Patient understands and agrees with current plan. All questions answered. No further intervention required from orthopedics will sign off patient at this time and follow peripherally if there is any questions pertaining her to her care feel free to contact myself Dr. Fox Consult Attestations Medical Necessity Statement: Left clavicle fracture Coding Level of Care Code Acute Code for Chg Fwd Diagnoses Closed left clavicular fracture S42.002A Time Spent (min) 45
[2023-03-07] MEDS: docusate sodium 100 mg Capsule PO (17:23)
[2023-03-07] MEDS: acetaminophen 325 mg Tablet 650 MG PO (17:23)
[2023-03-07 19:12] LABS: Hematocrit 26.2 % (37.0-47.0); Hemoglobin 7.5 g/dL (11.5-15.3)
[2023-03-07] MEDS: pantoprazole 40 mg SDV IVP (21:51)
[2023-03-07] MEDS: ALPRAZolam 0.5 mg Tablet PO (22:08)
[2023-03-07] MEDS: pramipexole 0.25 mg Tablet PO (22:08)
[2023-03-08] VITALS (7 sets, daily range): BP systolic 119–147; BP diastolic 67–84; PULSE 78–85; RESP 16–19; TEMP 36.3–36.6; O2SAT 92–98
[2023-03-08 01:03] LABS: Hematocrit 26.9 % (37.0-47.0); Hemoglobin 7.9 g/dL (11.5-15.3)
[2023-03-08 06:41] LABS: Basophils % 0.4 %; Eosinophils # 0.3 10^3/uL (0.0-0.8); Eosinophils % 5.6 %; Hematocrit 27.3 % (37.0-47.0); Hemoglobin 7.7 g/dL (11.5-15.3); Lymphocytes # 1.2 10^3/uL (0.8-4.8); Lymphocytes % 22.3 %; Mean Corpuscular HGB Conc 28.2 g/dL (30.0-36.0); Mean Corpuscular Hemoglobin 21.8 pg (28.0-34.0); Mean Corpuscular Volume 77.3 fl (81-99); Mean Platelet Volume 9.8 fL (7.4-10.4); Monocytes # 0.4 10^3/uL (0.2-0.9); Monocytes % 7.3 %; Neutrophils # 3.33 10^3/uL (1.8-7.7); Nucleated Red Blood Cells % 0 %; Platelet Count 237 10^3/cmm (130-400); Red Blood Count 3.53 10^6/uL (4.1-5.3); Red Cell Distribution Width 17.9 % (12.1-15.1); White Blood Count 5.2 10^3/uL (4.0-10.0)
[2023-03-08 07:09] LABS: Blood Urea Nitrogen 12 mg/dL (8-23); Calcium 7.9 mg/dL (8.5-10.5); Carbon Dioxide 25 mmol/L (22-29); Chloride 107 mmol/L (98-107); Glucose 107 mg/dL (65-115); Magnesium 1.9 mg/dL (1.7-2.3); Osmolality Calculated 288 mOsm/kg (285-295); Phosphorus 2.5 mg/dL (2.5-4.5); Sodium 139 mmol/L (136-145)
[2023-03-08 07:10] LABS: Anion Gap 11.3 (5-19); Potassium 4.3 mmol/L (3.5-5.1)
[2023-03-08] MEDS: bisacodyl 5 mg Tablet 20 MG PO (08:43)
[2023-03-08] MEDS: peg /e-lyte soln 4,000 mL Btl 4000 ML PO (08:46)
[2023-03-08] MEDS: atorvastatin 40 mg Tablet PO (08:47)
[2023-03-08] MEDS: D5-NS 0.45% + KCL 20 mEq 20 MEQ/1,000 ML BAG 75 MEQ IV (08:47)
[2023-03-08] MEDS: citalopram 20 mg Tablet 30 MG PO (08:48)
[2023-03-08] MEDS: pramipexole 0.25 mg Tablet PO (08:49)
[2023-03-08] MEDS: docusate sodium 100 mg Capsule PO ×2 (08:49→17:52)
[2023-03-08] MEDS: pantoprazole 40 mg SDV IVP (08:53)
[2023-03-08] MEDS: HYDROcodone-acetaminophen 5-325 mg Tablet 1 TAB PO ×2 (14:18→17:52)
--- NOTE | 2023-03-08 17:46 | PM.PN ---
Subjective Subjective: Patient seen and examined. No abdominal pain nausea or emesis Vitals/I&O/Wt Last Vital Signs Temp 97.8 F 03/08/23 15:53 Pulse 84 03/08/23 15:53 Resp 18 03/08/23 15:53 BP 143/76 03/08/23 15:53 Pulse Ox 95 03/08/23 15:53 O2 Del Method Room Air 03/08/23 15:53 03/08/23 03/08/23 03/08/23 06:59 14:59 22:59 Intake Total 1959 Balance 1959 Weight last 48 hrs Weight 147 lb Physical Exam Narrative: General: No acute distress, awake alert and oriented x3 Abdomen: Soft, nontender, nondistended, no guarding rebound or masses Data 03/08/23 06:24 03/08/23 06:24 A&P Assessment and plan (1) GI bleed: (2) Anemia: Plan Bowel prep N.p.o. after midnight Colonoscopy tomorrow The risks and benefits of the procedure, including bleeding, infection, intestinal perforation requiring surgery, missed lesion were explained to the patient. The patient is understanding of the risks and wishes to proceed. Attestations Medical Necessity Statement*: Per primary Coding Level of Care Code 04914 Diagnoses GI bleed K92.2 Anemia D64.9
[2023-03-08] MEDS: pramipexole 0.25 mg Tablet 1.25 MG PO (17:52)
--- NOTE | 2023-03-08 17:58 | PM.PN ---
Subjective Subjective: Hb is stable at 7.7 , hemodynamocally stable, drinking go lytely fro colonoscopy tomorrow Medications: Reviewed: Yes Vitals/I&O/Wt Last Vital Signs Temp 97.8 F 03/08/23 15:53 Pulse 84 03/08/23 15:53 Resp 18 03/08/23 15:53 BP 143/76 03/08/23 15:53 Pulse Ox 95 03/08/23 15:53 O2 Del Method Room Air 03/08/23 15:53 03/08/23 03/08/23 03/08/23 06:59 14:59 22:59 Intake Total 1959 Balance 1959 Weight last 48 hrs Weight 66.678 kg Physical Exam Narrative: General: No acute distress, AO x3 HEENT: PERRLA, pupils bilaterally equal and reactive, pallors not present Chest: Normal vesicular breath sounds, no added sounds, equal good air entry bilaterally CVS: S1-S2 regular, no murmurs, no tachycardia, no gallops, no rubs Abdomen: Soft, nontender, no organomegaly, bowel sounds present Neuro: No focal deficits, no facial deformity, AO x3, power 5/5 in all limbs EXXT: multiple brusises all over Data 03/08/23 06:24 03/08/23 06:24 A&P Assessment and plan (1) Frequent falls: With at least 3 over the last week, most recent on 03/06 (2) Anemia: Microcytic anemia, iron deficiency due to GI blood losses, likely acute on chronic, status post 1 unit of packed red blood cells at outside facility on 03/06 [facility] withotu any bleeding identified Planned colonoscopy tomorrow (3) Acute upper gastrointestinal bleeding: As evidenced by recent upper GI symptoms, black stools lately, reported use of NSAIDs at least weekly for pain and anemia requiring blood Ct humerus Chronic appearing healed fracture deformity involving the LEFT humeral neck with mild impaction of the humeral shaft. This is similar in appearance the prior shoulder radiographs June 02, 2021.New images demonstrate comminuted fracture of the proximal clavicle with overriding fracture fragments. Mid and distal clavicle are displaced anteriorly approximately one shaft width. Associated soft tissue edema. Additional areas of slightly comminuted fracture involving the proximal clavicle at the sternoclavicular articulation. No? dislocation. No acute orthopedic surgical intervention required at this time per ortho (4) Closed fracture of left proximal humerus: From radiology report may be a chronic fracture but given pain after fall on 03/06, may be indicative of an acute fracture (5) Diastolic dysfunction: Chronically on diuretic therapy per available information (6) Dyslipidemia: Chronically on statin therapy per available information (7) Anxiety: Chronically on hydroxyzine for anxiety along with as needed alprazolam; also on citalopram for depression per available information (8) Restless leg: Chronically on Mirapex per available information Plan Planned for colonoscopy tomorrow. Until then monitor H&H. patient and family concerned about recurrent falls and feels safety is a concern upon return to home. PT/OT eval appreciated. change to inpatient admission, planned colonoscopy tomorrow Attestations Medical Necessity Statement*: colonoscopy tomorrow, ongoing disposition planning Coding Level of Care Code Acute Code for Chg Fwd Diagnoses Frequent falls R29.6 Anemia D64.9 Acute upper gastrointestinal bleeding K92.2 Closed fracture of left proximal humerus S42.202A Diastolic dysfunction I51.89 Dyslipidemia E78.5 Anxiety F41.9 Restless leg G25.81
[2023-03-08] MEDS: ALPRAZolam 0.5 mg Tablet PO (20:48)
[2023-03-09] VITALS (10 sets, daily range): BP systolic 111–159; BP diastolic 58–93; PULSE 75–95; RESP 12–18; TEMP 36.1–37; O2SAT 93–96
[2023-03-09] MEDS: D5-NS 0.45% + KCL 20 mEq 20 MEQ/1,000 ML BAG 75 MEQ IV (04:38)
[2023-03-09] MEDS: sodium chloride 0.9% 1,000 ML 30 ML IV (06:40)
--- NOTE | 2023-03-09 06:55 | ANES.PREANE2 ---
Pre-Anesthetic Assessment Height/Weight: Height 1.55 m Weight 66.678 kg Temp Pulse Resp BP Pulse Ox O2 Del Method 97.0 F L 78 18 154/93 94 Room Air 03/09/23 06:24 03/09/23 06:24 03/09/23 06:24 03/09/23 06:24 03/09/23 06:24 03/09/23 06:24 Preop Diagnosis: anemia Operation Date: 03/07/23 08:15 Proposed Procedures p EGD(Not Applicable) - Moses Nuñez DO Operation Date: 03/09/23 07:00 Proposed Procedures p Colonoscopy(Not Applicable) - Moses Nuñez DO Familial anesthetic complications: none Was Beta Keshawn taken within 24 hours: N/A Last intake: Intake Last Liquid Date 03/08/23 Last Liquid Time 22:00 Last Solid Date 03/07/23 Last Solid Time 22:00 Social No alcohol and No tobacco Exam alert Airway Submandibular: within normal limits Cervical ROM: within normal limits Mallampati: Class IV Dentition: full History/ROS No significant history except as noted None reported Hepatic None reported GI Gastroesophageal Reflux Disease Metabolic Hyperlipidemia Neuropsych Anxiety, Dementia and Depression Anesthetic Plan ASA status: 3 Anesthesia: Anesthesia Evaluation, General and MAC Medications/Allergies Home Medications Medication Instructions Recorded Confirmed Last Taken Type meloxicam 15 mg tablet 15 mg PO DAILY 30 days #30 tabs 12/25/21 03/07/23 Unknown Rx aspirin 81 mg tablet,delayed 81 mg PO DAILY 30 days #30 tabs 04/15/22 03/07/23 Unknown Rx release nitroglycerin 0.4 mg sublingual 0.4 mg sublingual Q5M PRN chest 04/15/22 03/07/23 Unknown Rx tablet pain 30 days #30 tabs potassium chloride 20 mEq 20 meq PO DAILY 30 days #30 tabs 07/15/22 03/07/23 Unknown Rx tablet,extended release(part/cryst) (Klor-Con M) albuterol sulfate 90 mcg/actuation 2 puff inhalation QID PRN 07/27/22 03/07/23 Unknown Rx aerosol inhaler (ProAir HFA) shortness of breath or wheezing #8.5 grams furosemide 20 mg tablet 20 mg PO DAILY 30 days #30 tabs 02/07/23 03/07/23 Unknown Rx pramipexole 0.25 mg tablet 0.25 mg PO DAILY #30 tabs 02/08/23 03/07/23 Unknown Rx hydroxyzine HCl 10 mg tablet 10 mg PO DAILY PRN anxiety #30 tabs 02/14/23 03/07/23 Unknown Rx atorvastatin 40 mg tablet 40 mg PO DAILY 30 days #30 tabs 03/01/23 03/07/23 Unknown Rx citalopram 20 mg tablet (Celexa) 30 mg PO DAILY 30 days #45 tabs 03/01/23 03/07/23 Unknown Rx pramipexole 0.125 mg tablet 1 mg PO DAILY 03/07/23 03/07/23 Unknown History Allergies Allergy/AdvReac Type Severity Reaction Status Date / Time No Known Drug Allergies Allergy Intermediate na Verified 03/06/23 23:29 Current Medications Generic Name Dose Route Start Last Admin Trade Name Freq PRN Reason Stop Dose Admin Acetaminophen 650 mg 03/07/23 05:01 03/07/23 17:23 Acetaminophen 325 Mg Tablet PO 650 mg Q6H PRN Administration Mild/Mod Pain Or Temp >/= 101 Hydrocodone Bitart/Acetaminophen 1 tab 03/07/23 05:01 03/08/23 17:52 Hydrocodone-Acetaminophen 5-325 Mg Tablet PO 1 tab Q4H PRN Administration MODERATE TO SEVERE PAIN Alprazolam 0.5 mg 03/07/23 21:44 03/08/23 20:48 Alprazolam 0.5 Mg Tablet PO 0.5 mg TID PRN Administration ANXIETY Atorvastatin Calcium 40 mg 03/08/23 09:00 03/08/23 08:47 Atorvastatin 40 Mg Tablet PO 40 mg DAILY SHERWIN Administration Citalopram Hydrobromide 30 mg 03/08/23 09:00 03/08/23 08:48 Citalopram 20 Mg Tablet PO 30 mg DAILY SHERWIN Administration Docusate Sodium 100 mg 03/07/23 09:00 03/08/23 17:52 Docusate Sodium 100 Mg Capsule PO 100 mg BID SHERWIN Administration Potassium Chloride/Dextrose/Sod Cl 20 meq in 1,000 mls @ 75 mls/hr 03/07/23 05:15 03/09/23 06:17 D5-Ns 0.45% + Kcl 20 Meq IV 0 mls/hr .[id number] SHERWIN Infusion Sodium Chloride 1,000 mls @ 30 mls/hr 03/09/23 06:30 03/09/23 06:40 Sodium Chloride 0.9% IV 03/10/23 06:29 30 mls/hr .Q24H SHERWIN Administration Pantoprazole Sodium 40 mg 03/07/23 09:00 03/08/23 22:16 Pantoprazole 40 Mg Sdv IVP Not Given Q12H SHERWIN Pramipexole Dihydrochloride 1.25 mg 03/08/23 18:00 03/08/23 17:52 Pramipexole 0.25 Mg Tablet PO 1.25 mg BID SHERWIN Administration PFSH Anesthesia Medical History Anxiety Chronic pain of both shoulders Depression Diastolic dysfunction Echo 03/202222 grade 1 diastolic dysfunction, EF 65% Dyslipidemia Pineal gland, tumor benign Restless leg Vitamin D deficiency Surgical History History of appendectomy History of arthroplasty of left hip History of cataract surgery History of cholecystectomy History of esophageal dilatation Family History Other Cancer Denies family history of GIB (gastrointestinal bleeding) Social History Smoking and tobacco status: never smoked Alcohol intake: never Substance/Drug Use: never Current occupation: Retired Data Anesthesia 03/08/23 06:24 03/08/23 06:24 Short CBC 03/07/23 03/07/23 03/08/23 Range/Units 12:28 19:05 00:46 WBC (4.0-10.0) 10^3/uL Hgb 8.0 L 7.5 L 7.9 L (11.5-15.3) g/dL Hct 26.9 L 26.2 L 26.9 L (37.0-47.0) % MCV (81-99) fl Plt Count (130-400) 10^3/cmm Neut % (Auto) % Neut # (Auto) (1.8-7.7) 10^3/uL 03/08/23 Range/Units 06:24 WBC 5.2 (4.0-10.0) 10^3/uL Hgb 7.7 L (11.5-15.3) g/dL Hct 27.3 L (37.0-47.0) % MCV 77.3 L (81-99) fl Plt Count 237 (130-400) 10^3/cmm Neut % (Auto) 64.0 % Neut # (Auto) 3.33 (1.8-7.7) 10^3/uL BMP 03/08/23 06:24 Sodium 139 Potassium 4.3 Chloride 107 Carbon Dioxide 25 BUN 12 Creatinine 1.0 H Glucose 107 Calcium 7.9 L Cardiac Studies: Echocardiogram 04/09/22
--- NOTE | 2023-03-09 07:00 | PM.PN ---
Vitals/I&O/Wt Last Vital Signs Temp 97.0 F L 03/09/23 06:24 Pulse 78 03/09/23 06:24 Resp 18 03/09/23 06:24 BP 154/93 03/09/23 06:24 Pulse Ox 94 03/09/23 06:24 O2 Del Method Room Air 03/09/23 06:24 03/08/23 03/09/23 03/09/23 22:59 06:59 14:59 Intake Total 1246.25 / 3206.25 123.75 / 3330.00 Balance 1246.25 / 3206.25 123.75 / 3330.00 Data 03/08/23 06:24 03/08/23 06:24 A&P Assessment and plan (1) GI bleed: (2) Anemia: Plan Colonoscopy The risks and benefits of the procedure, including bleeding, infection, intestinal perforation requiring surgery, missed lesion were explained to the patient. The patient is understanding of the risks and wishes to proceed. Attestations Medical Necessity Statement*: Per primary Coding Level of Care Code Acute Code for Chg Fwd Diagnoses GI bleed K92.2 Anemia D64.9
--- NOTE | 2023-03-09 08:00 | ANE.PACU2 ---
Inpatient post-anesthesia follow up: Airway intact: Yes Vital signs: Temperature 97.6 F Pulse Rate 82 Respiratory Rate 16 Blood Pressure 131/80 Pulse Oximetry 94 Oxygen Delivery Me thod [ Room Air Current Rate & Del zahra] Oxygen Delivery Me thod Room Air Oxygen Flow Rate 2 Fraction of Inspir ed Oxygen Hydration adequate: Yes Nausea and vomiting: Yes Pain level: 1 Mental status: Baseline
[2023-03-09] MEDS: citalopram 20 mg Tablet 30 MG PO (10:32)
[2023-03-09] MEDS: pantoprazole DR 40 mg Tablet PO (10:32)
[2023-03-09] MEDS: atorvastatin 40 mg Tablet PO (10:32)
[2023-03-09] MEDS: pramipexole 0.25 mg Tablet 1.25 MG PO ×2 (10:33→18:08)
[2023-03-09 12:34] LABS: Basophils % 0.1 %; Eosinophils # 0.1 10^3/uL (0.0-0.8); Eosinophils % 1.8 %; Hematocrit 33.6 % (37.0-47.0); Hemoglobin 10.1 g/dL (11.5-15.3); Lymphocytes # 0.6 10^3/uL (0.8-4.8); Lymphocytes % 9.6 %; Mean Corpuscular HGB Conc 30.1 g/dL (30.0-36.0); Mean Corpuscular Hemoglobin 22.7 pg (28.0-34.0); Mean Corpuscular Volume 75.5 fl (81-99); Mean Platelet Volume 10.8 fL (7.4-10.4); Monocytes # 0.3 10^3/uL (0.2-0.9); Monocytes % 3.9 %; Neutrophils # 5.64 10^3/uL (1.8-7.7); Neutrophils % 84.3 %; Nucleated Red Blood Cells % 0 %; Red Blood Count 4.45 10^6/uL (4.1-5.3); Red Cell Distribution Width 19.1 % (12.1-15.1); White Blood Count 6.7 10^3/uL (4.0-10.0)
[2023-03-09 12:55] LABS: Alanine Aminotransferase 12 U/L (0-33); Albumin Level 3.7 g/dL (3.5-5.2); Alkaline Phosphatase 87 U/L (35-105); Blood Urea Nitrogen 8 mg/dL (8-23); Calcium 8.7 mg/dL (8.5-10.5); Carbon Dioxide 23 mmol/L (22-29); Chloride 101 mmol/L (98-107); Creatinine Clr Calc Pharmacy 43.2912; Globulin 2.3 g/dL (1.3-4.6); Glucose 118 mg/dL (65-115); Osmolality Calculated 283 mOsm/kg (285-295); Sodium 137 mmol/L (136-145); Total Bilirubin 0.6 mg/dL (0.15-1.2)
[2023-03-09 12:56] LABS: Anion Gap 17.1 (5-19); Aspartate Amino Transferase 26 U/L (0-32); Potassium 4.1 mmol/L (3.5-5.1)
[2023-03-09 13:05] LABS: Platelet Count 227 10^3/cmm (130-400); Slide Review Slide Review Perform
--- NOTE | 2023-03-09 14:31 | P.PN_ITS ---
Subjective Subjective: Patient underwent colonoscopy today which showed a proximal ascending colon malignant appearing mass with stigmata of recent bleeding. At the hepatic flexure there was a sessile polyp 13 x 8 mm. In the descending colon multiple sessile polyps were seen ranging from 10 mm to 8 mm. In the distal sigmoid colon there were multiple semipedunculated polyps and extensive diverticular disease. None of the diverticuli were noted to be actively bleeding. Few internal hemorrhoids were additionally seen in the rectum which were not currently bleeding. Hemoglobin today stable at 10. Patient has no new complaints. She is currently tolerating a diet. Medications: Reviewed: Yes Medication Review Details: Above medication list has not yet reconciled. Patient does not recognize the name meloxicam and denies being on it but indicates that she takes ibuprofen maybe once a week. Vitals/I&O/Wt Last Vital Signs Temp 97.6 F 03/09/23 11:29 Pulse 82 03/09/23 11:29 Resp 16 03/09/23 11:29 BP 131/80 03/09/23 11:29 Pulse Ox 94 03/09/23 11:29 O2 Del Method Room Air 03/09/23 11:29 O2 Flow Rate 2 03/09/23 08:39 03/08/23 03/09/23 03/09/23 22:59 06:59 14:59 Intake Total 1246.25 / 3206.25 123.75 / 3330.00 840 / 840 Balance 1246.25 / 3206.25 123.75 / 3330.00 840 / 840 Physical Exam Narrative: General: No acute distress, AO x3 HEENT: PERRLA, pupils bilaterally equal and reactive, pallors not present Chest: Normal vesicular breath sounds, no added sounds, equal good air entry bilaterally CVS: S1-S2 regular, no murmurs, no tachycardia, no gallops, no rubs Abdomen: Soft, nontender, no organomegaly, bowel sounds present Neuro: No focal deficits, no facial deformity, AO x3, power 5/5 in all limbs EXXT: multiple brusises all over from recent falls Data 03/09/23 12:23 03/09/23 12:23 A&P Assessment and plan (1) Frequent falls: With at least 3 over the last week, most recent on 03/06 (2) Anemia: Microcytic anemia, iron deficiency due to GI blood losses, likely acute on chronic, status post 1 unit of packed red blood cells at outside facility on 03/06 [facility] withotu any bleeding identified Colonoscopy performed today shows 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 Biopsies taken, currently pending. Patient will likely need surgical intervention once biopsy results are obtained. We will arrange for this as outpatient with Dr. Frankel (3) Acute upper gastrointestinal bleeding: As evidenced by recent upper GI symptoms, black stools lately, reported use of NSAIDs at least weekly for pain and anemia requiring blood (4) Closed fracture of left proximal humerus: Ct humerus Chronic appearing healed fracture deformity involving the LEFT humeral neck with mild impaction of the humeral shaft. This is similar in appearance the prior shoulder radiographs June 02, 2021.New images de monstrate comminuted fracture of the proximal clavicle with overriding fracture fragments. Mid and distal clavicle are displaced anteriorly approximately one shaft width. Associated soft tissue edema. Additional areas of slightly comminuted fracture involving the proximal clavicle at the sternoclavicular articulation. No? dislocation. No acute orthopedic surgical intervention required at this time per ortho (5) Diastolic dysfunction: Chronically on diuretic therapy per available information Discontinue IV fluids (6) Dyslipidemia: Chronically on statin therapy per available information (7) Anxiety: Chronically on hydroxyzine for anxiety along with as needed alprazolam; also on citalopram for depression per available information (8) Restless leg: Chronically on Mirapex per available information Plan Disposition: Patient at risk of recurrent falls. Family and patient are hesitant to return home due to concern for patient's safety given history of recurrent falls. She has been found to have a possibly malignant colon mass with stigmata of recent bleeding which would explain her current iron deficiency anemia dizziness and recurrent falls. Would likely benefit from continued rehab prior to transitioning back to home. Attestations Medical Necessity Statement*: Ongoing disposition planning, anticipate discharge in the upcoming 24 hours if hemoglobin remains stable Coding Level of Care Code Acute Code for Chg Fwd Diagnoses Frequent falls R29.6 Anemia D64.9 Acute upper gastrointestinal bleeding K92.2 Closed fracture of left proximal humerus S42.202A Diastolic dysfunction I51.89 Dyslipidemia E78.5 Anxiety F41.9 Restless leg G25.81
[2023-03-10] VITALS (12 sets, daily range): BP systolic 137–177; BP diastolic 67–98; PULSE 84–91; RESP 16–18; TEMP 36.6–36.9; O2SAT 94–99
[2023-03-10 05:40] LABS: Hematocrit 25.7 % (37.0-47.0); Hemoglobin 7.3 g/dL (11.5-15.3)
[2023-03-10] MEDS: docusate sodium 100 mg Capsule PO (08:13)
[2023-03-10] MEDS: pantoprazole DR 40 mg Tablet PO (08:13)
[2023-03-10] MEDS: atorvastatin 40 mg Tablet PO (08:13)
[2023-03-10] MEDS: citalopram 20 mg Tablet 30 MG PO (08:14)
[2023-03-10] MEDS: pramipexole 0.25 mg Tablet 1.25 MG PO (08:14)
--- NOTE | 2023-03-10 10:40 | PC.CHAP ---
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 [] Patient/Family/Request visit [] Outpatient visit [] Follow-up visit [] Physician referral [] Code/Alert [x] Routine visit [] Staff referral [] Actively dying [] Patient sleeping [] Family support [] [] Out of room [] Palliative care [] [x] Receiving care in room [] Pre-surgical visit [] Trauma [] Long length of stay [] ICU visit [] Other: Relational/Emotional Strength [x] Patient feels connected with others/family/visitors/staff [] Distress [] Loneliness/isolation [] Abandonment Spirituality of Patient [x] Person of Helga [] Attends Jain of their [place]ga [x] Believes in Prayer [] Reads Bible or Restorationist materials [] There are Spiritual issues to be addressed [place] Interventions [x] Prayer [x] Active listening [x] Non-anxious presence [x] Spiritual/emotional support [] Crisis/trauma care [x] Spiritual counseling [] Bereavement support [] Provided bereavement packet [] Provided Bible/devotional materials [] Provided toy/stuffed animal, coloring book to patient or family member [] Provided Communion [] Anointing/[place] [] Salvation [x] Completed spiritual assessment [] Other: Impact on Illness or Injury [] Angry [] Fearful [] Anxious [] Often cries [] Exhaustion [] Unable to work [] Unable to attend rastafarian [] Unable to walk/stand [] Unable to read [] Unable to drive [] Unable to eat/drink [] Unable to sleep [] Unable to be with family [] Patient intubated [] Other: Summary dealing with foot just found out about cancer well go though tests for cancer treatment has a good attitude Time spent with patient 10 mins
--- NOTE | 2023-03-10 12:31 | PM.DCS ---
Discharge Providers Date of Admission: 03/08/23 18:00 Date of Discharge: March 10, 2023 Attending Provider at Admission: Carleen Bennett MD Attending Provider at Discharge: Lissette Pyle MD Primary Care Provider: Mic Salguero MD Diagnoses at Discharge Discharge Diagnosis (1) Frequent falls: Status: Acute (2) Anemia: Status: Acute (3) Acute upper gastrointestinal bleeding: Status: Acute (4) Closed fracture of left proximal humerus: Status: Acute (5) Diastolic dysfunction: Status: Chronic Permanent problem details: Echo 03/202222 grade 1 diastolic dysfunction, EF 65% (6) Dyslipidemia: Status: Chronic (7) Anxiety: Status: Chronic (8) Restless leg: Status: Chronic Reason for Visit Reason for Visit: bleeding, arm pain, s/p fall Brief History: Irene Moon is a 87 year old female who presented to the emergency room with complaint of GI bleed.? Mrs. Moon had been in [place] on Tuesday.? She had a fall and was seen at a hospital in [facility] for this.?Laboratory studies were done while she was in the emergency room and showed a hemoglobin of 7.2.? She reported black stools for some period of time as well as dizziness and weakness prior to her fall.? Stool was found to be Hemoccult positive.? She received transfusion of 1 unit of packed red blood cells at outside facility with resultant hemoglobin greater than 10 per doctors notations.? The doctor there wanted to admit her but she and her family declined.? They had been instructed to come to the hospital here upon arrival back and [place].?She has had a total of 3 falls in the past week or so.? She did hit her head several days ago but denied loss of consciousness.? Has bruising around her left eye, nasal bridge and forehead. 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 Biopsies taken, currently pending.? Patient will likely need surgical intervention once biopsy results are obtained. Follow up as outpatient with Dr. Nuñez for biopsy results # GI bleed, colonoscopy with ascending colon mass with stigmata of recent bleeding # Closed fracture of left proximal humerus: Ct humerus?Chronic appearing healed fracture deformity involving the LEFT humeral neck with mild impaction of the humeral shaft. This is similar in appearance the prior shoulder radiographs June 02, 2021.New images demonstrate comminuted fracture of the proximal clavicle with overriding fracture fragments. Mid and distal clavicle are displaced anteriorly approximately one shaft width. Associated soft tissue edema. Additional areas of slightly comminuted fracture involving the proximal clavicle at the sternoclavicular articulation. No? dislocation. No acute orthopedic surgical intervention required at this time per ortho. Follow up as outpatient. # Diastolic dysfunction: Chronically on diuretic therapy per available information Currently euvolemic. Physical Exam Narrative: General: No acute distress, AO x3 HEENT: PERRLA, pupils bilaterally equal and reactive, pallors not present Chest: Normal vesicular breath sounds, no added sounds, equal good air entry bilaterally CVS: S1-S2 regular, no murmurs, no tachycardia, no gallops, no rubs Abdomen: Soft, nontender, no organomegaly, bowel sounds present Neuro: No focal deficits, no facial deformity, AO x3, power 5/5 in all limbs EXT: multiple bruises all over including face, upper chest and arms Discharge Data Studies Completed and Pending Completed Studies During Hospitalization Category Date Time Status CT humerus LT wo con* [id number] Stat Cat Scan 03/07/23 10:49 Completed XR shoulder LT min 2V* [id number] Stat Exams 03/07/23 00:41 Completed Pending at discharge Category Date Time Status Pathology: Surgical [PTH] Routine Pth 03/09/23 07:57 Received Radiology Impressions Shoulder X-Ray 03/07/23 00:41 IMPRESSION: 1. Chronic soft tissue calcifications about the humeral head. 2. Suspected 9.3 mm calcific loose body again seen in the axillary recess. 3. 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 4. Probable chronic deformity of the humeral head and neck again seen, similar to prior exam, consider further evaluation with a CT scan if concern for acute fracture remains given overlapping soft tissue calcifications. Humerus CT 03/07/23 10:49 IMPRESSION: 1. Chronic appearing healed fracture deformity involving the LEFT humeral neck with mild impaction of the humeral shaft. This is similar in appearance the prior shoulder radiographs June 02, 2021. 2. No definite evidence of acute fracture. 3. Advanced degenerative arthritis glenohumeral joint with [id number] articulation. Associated hypertrophic changes. 4. Moderate degenerative arthritis at the AC joint. 5. No other acute findings. Message LEFT for Lissette Pyle MD at 03/07/2023 12:13 PM Laboratory Results WBC 6.7 10^3/uL (4.0-10.0) 03/09/23 12: RBC 4.45 10^6/uL (4.1-5.3) 03/09/23 12: Hgb 7.3 g/dL (11.5-15.3) L 03/10/23 04:45 Hct 25.7 % (37.0-47.0) L 03/10/23 04:45 MCV 75.5 fl (81-99) L 03/09/23 12:23 MCH 22.7 pg (28.0-34.0) L 03/09/23 12:23 MCHC 30.1 g/dL (30.0-36.0) D 03/09/23 12: RDW 19.1 % (12.1-15.1) H 03/09/23 12:23 Plt Count 227 10^3/cmm (130-400) 03/09/23 12:23 MPV 10.8 fL (7.4-10.4) H 03/09/23 12:23 Neut % (Auto) 84.3 % 03/09/23 12:23 Lymph % (Auto) 9.6 % 03/09/23 12:23 [place] % (Auto) 3.9 % 03/09/23 12: Eos % (Auto) 1.8 % 03/09/23 12: Baso % (Auto) 0.1 % 03/09/23 12:23 Neut # (Auto) 5.64 10^3/uL (1.8-7.7) 03/09/23 12:23 Lymph # (Auto) 0.6 10^3/uL (0.8-4.8) L 03/09/23 12:23 [place] # (Auto) 0.3 10^3/uL (0.2-0.9) 03/09/23 12:23 Eos # (Auto) 0.1 10^3/uL (0.0-0.8) 03/09/23 12:23 Baso # (Auto) 0.0 10^3/uL (0.0-0.1) 03/09/23 12:23 Nucleated RBC % (auto) 0 % 03/09/23 12:23 Nucleated RBCs # 0.0 /100WBC 03/09/23 12:23 PT 13.90 SECONDS (12.1-14.9) 03/06/23 23:56 INR 1.04 (0.8-1.2) 03/06/23 23:56 APTT 26.0 SECONDS (23.9-36.7) 03/07/23 06:20 Sodium 137 mmol/L (136-145) 03/09/23 12:23 Potassium 4.1 mmol/L (3.5-5.1) 03/09/23 12:23 Chloride 101 mmol/L (98-107) 03/09/23 12:23 Carbon Dioxide 23 mmol/L (22-29) 03/09/23 12:23 Anion Gap 17.1 (5-19) 03/09/23 12:23 BUN 8 mg/dL (8-23) 03/09/23 12:23 Creatinine 0.8 mg/dL (0.5-0.9) 03/09/23 12:23 GFR Calculation Not Reportable 03/09/23 12:23 Glucose 118 mg/dL (65-115) H 03/09/23 12:23 Calculated Osmolality 283 mOsm/kg (285-295) L 03/09/23 12:23 Calcium 8.7 mg/dL (8.5-10.5) 03/09/23 12:23 Phosphorus 2.5 mg/dL (2.5-4.5) 03/08/23 06:24 Magnesium 1.9 mg/dL (1.7-2.3) 03/08/23 06:24 Iron 20 ug/dL (37-145) L 03/06/23 23:54 TIBC 352 mcg/dl 03/06/23 23:54 % Saturation 5.6 % (20-50) L 03/06/23 23:54 Unsat Iron Binding 332 ug/dL (112-347) 03/06/23 23:54 Total Bilirubin 0.6 mg/dL (0.15-1.2) 03/09/23 12:23 AST 26 U/L (0-32) 03/09/23 12:23 ALT 12 U/L (0-33) 03/09/23 12:23 Alkaline Phosphatase 87 U/L (35-105) 03/09/23 12:23 Total Protein 6.0 g/dL (6.6-8.7) L 03/09/23 12:23 Albumin 3.7 g/dL (3.5-5.2) 03/09/23 12:23 Globulin 2.3 g/dL (1.3-4.6) 03/09/23 12:23 Blood Type O Positive 03/10/23 09:40 Rho(D) Type Positive 03/10/23 09:40 Antibody Screen Negative 03/10/23 09:40 Crossmatch See Detail 03/10/23 09:40 Vitals Last Vital Signs Temp 98.3 F 03/10/23 12:02 Pulse 86 03/10/23 12:02 Resp 18 03/10/23 12:02 BP 153/80 03/10/23 12:02 Pulse Ox 97 03/10/23 12:02 O2 Del Method Room Air 03/10/23 03:54 O2 Flow Rate 2 03/09/23 08:39 Discharge Plan Discharge Patient Disposition: Xfer [facility] Condition: Stable Prescriptions: Continued pramipexole 0.25 mg tablet 0.25 mg PO DAILY Qty: 30 2RF nitroglycerin 0.4 mg tablet, sublingual 0.4 mg sublingual Q5M PRN (Reason: chest pain) 30 Days Qty: 30 0RF Rx Instructions: do not exceed 3 doses per episode albuterol sulfate [ProAir HFA] 90 mcg/actuation HFA aerosol inhaler 2 puff inhalation QID PRN (Reason: shortness of breath or wheezing) Qty: 8.5 1RF hydroxyzine HCl 10 mg tablet 10 mg PO DAILY PRN (Reason: anxiety) Qty: 30 0RF atorvastatin 40 mg tablet 40 mg PO DAILY 30 Days Qty: 30 5RF citalopram [Celexa] 20 mg tablet 30 mg PO DAILY 30 Days Qty: 45 5RF pramipexole 0.125 mg tablet 1 mg PO DAILY Changed furosemide 20 mg tablet 20 mg PO DAILY PRN (Reason: prn) 30 Days Qty: 30 0RF Discontinued aspirin 81 mg tablet,delayed release (DR/EC) 81 mg PO DAILY 30 Days Qty: 30 0RF potassium chloride [Klor-Con M20] 20 mEq tablet,ER particles/crystals 20 meq PO DAILY 30 Days Qty: 30 0RF meloxicam 15 mg tablet 15 mg PO DAILY 30 Days Qty: 30 5RF Discharge Orders: Discharge Order (Routine); Ordered 03/10/23 Ordered By: Lissette Pyle Referrals: Mic Salguero MD [Primary Care Provider] - 03/15/23 11:00 am ([facility] ) Pasha Fox DO [Physician] - 03/24/23 11:15 am Discharge Activity: Limit activity as instructed Patient Instructions: Gastrointestinal Bleeding (GEN), Opioid Safety Activity Restrictions/Additional Instructions: Orthopedic discharge instructions: Patient should be nonweightbearing to the left upper extremity Maintain sling until follow-up Encourage no active range of motion of the left shoulder Ice as needed Take pain medication as prescribed by primary at discharge Supplement with Citracal vitamin D for bone health and healing Follow-up in the orthopedic office with Dr. Fox in 2 weeks Contact the office for any questions or concerns Discharge Attestations Time Spent in Discharge Care*: greater than 30 min Status at Discharge: Cognitive status at discharge: cognitively intact, Behavioral status at discharge: cooperative, Quality Metrics Clinical Quality Measures [ No reported AMI, CVA or VTE this stay] Coding Level of Care Code Acute Code for Chg Fwd Diagnoses Frequent falls R29.6 Anemia D64.9 Acute upper gastrointestinal bleeding K92.2 Closed fracture of left proximal humerus S42.202A Diastolic dysfunction I51.89 Dyslipidemia E78.5 Anxiety F41.9 Restless leg G25.81
[2023-03-15 08:13] LABS: Mismatch Repari Proteins-IHC See Report
== END 2023-03-10 15:33 | disposition home health service (06) | DRG 378 ==
LOC: ER 23:47 → MEDSURG 03-07 01:42
PROVIDERS: Surgery; Admitting Provider Hospitalist; Emergency Provider Emergency Medicine; PCP Family Medicine; Visit Provider Student in an Organized Health Care Education/Training Program
PROC: 0DJ08ZZ Inspection of Upper Intestinal Tract, Via Natural or Artificial Opening Endoscopic (ICD-10-PCS; CPT 43235; principal; 2023-03-07 08:15)
PROC: 0DJD8ZZ Inspection of Lower Intestinal Tract, Via Natural or Artificial Opening Endoscopic (ICD-10-PCS; CPT 45378; principal; 2023-03-09 07:00)
DX: K92.1 Melena (principal); I50.32 Chronic diastolic (congestive) heart failure; D50.0 Iron deficiency anemia secondary to blood loss (chronic); S42.295D Other nondisplaced fracture of upper end of left humerus, subsequent encounter for fracture with routine healing; X58.XXXD Exposure to other specified factors, subsequent encounter; Z79.51 Long term (current) use of inhaled steroids; D12.4 Benign neoplasm of descending colon; D12.3 Benign neoplasm of transverse colon; D12.5 Benign neoplasm of sigmoid colon; G30.9 Alzheimer's disease, unspecified; F02.80 Dementia in other diseases classified elsewhere, unspecified severity, without behavioral disturbance, psychotic disturbance, mood disturbance, and anxiety; G89.29 Other chronic pain; M19.012 Primary osteoarthritis, left shoulder; M19.011 Primary osteoarthritis, right shoulder; K57.30 Diverticulosis of large intestine without perforation or abscess without bleeding; K64.8 Other hemorrhoids; W19.XXXA Unspecified fall, initial encounter; S42.032A Displaced fracture of lateral end of left clavicle, initial encounter for closed fracture; K44.9 Diaphragmatic hernia without obstruction or gangrene; F41.9 Anxiety disorder, unspecified; Z96.642 Presence of left artificial hip joint; G25.81 Restless legs syndrome; E78.5 Hyperlipidemia, unspecified; F32.A Depression, unspecified; K63.9 Disease of intestine, unspecified; R19.09 Other intra-abdominal and pelvic swelling, mass and lump
CPT/HCPCS: 36415; 36430; 43235; 45380; 45381; 45385; 73030; 73200; 80048; 80053; 83540; 83550; 83735; 84100; 85014; 85018; 85025; 85610; 85730; 86850; 86900; 86920; 88305; 88341; 88342; 93005; 96365; 96375; 97110; 97116; 97161; 97165; 97530; 97535; 99285; C9113; G0378; J2704; J7030; P9040

== ENCOUNTER → 2023-03-15 11:33 | Outpatient (BNVA) | payer MEDICARE, SELFPAY | PROVIDERS: PCP Family Medicine; Visit Provider Nurse Practitioner | DX: D64.9 Anemia, unspecified (principal); K92.2 Gastrointestinal hemorrhage, unspecified | CPT/HCPCS: 85025 ==

== ENCOUNTER 2023-03-17 09:30 | Emergency (ER) | payer MEDICARE, SELFPAY ==
--- NOTE | 2023-03-17 09:53 | XR_ITS ---
WS: [id number] Portable AP upright chest, 03/17/2023 Clinical Data: dyspnea/cough Comparison: Portable chest, 11/05/2014, Findings: No nodules, masses or effusions are seen. The heart is normal. The pulmonary vascularity is not increased. No pneumonia or pneumothorax is seen. The aortic arch and descending thoracic aorta s how minimal calcification and tortuosity. There are old healed fractures of both proximal humeri. XR/XR chest 1V portable [id number] Impression: Atherosclerosis.
[2023-03-17 09:56] VITALS: BP 129/82; PULSE 81; TEMP 36.6; O2SAT 96; BMI 25.9
[2023-03-17 10:36] LABS: Basophils % 0.3 %; Eosinophils # 0.3 10^3/uL (0.0-0.8); Eosinophils % 4.2 %; Hematocrit 36.4 % (37.0-47.0); Hemoglobin 10.6 g/dL (11.5-15.3); Lymphocytes # 0.9 10^3/uL (0.8-4.8); Lymphocytes % 13.2 %; Mean Corpuscular HGB Conc 29.1 g/dL (30.0-36.0); Mean Corpuscular Hemoglobin 23.2 pg (28.0-34.0); Mean Corpuscular Volume 79.6 fl (81-99); Mean Platelet Volume 9.3 fL (7.4-10.4); Monocytes # 0.5 10^3/uL (0.2-0.9); Monocytes % 7.1 %; Neutrophils # 4.96 10^3/uL (1.8-7.7); Neutrophils % 74.6 %; Nucleated Red Blood Cells % 0 %; Platelet Count 311 10^3/cmm (130-400); Red Blood Count 4.57 10^6/uL (4.1-5.3); Red Cell Distribution Width 22.4 % (12.1-15.1); White Blood Count 6.7 10^3/uL (4.0-10.0)
[2023-03-17 10:37] LABS: INR 1.05 (0.8-1.2)
[2023-03-17 10:38] LABS: Partial Thromboplastin Time 30.5 SECONDS (23.9-36.7)
[2023-03-17 10:45] LABS: Alanine Aminotransferase 11 U/L (0-33); Alkaline Phosphatase 96 U/L (35-105); Aspartate Amino Transferase 18 U/L (0-32); Blood Urea Nitrogen 17 mg/dL (8-23); Calcium 8.8 mg/dL (8.5-10.5); Carbon Dioxide 28 mmol/L (22-29); Chloride 100 mmol/L (98-107); Globulin 2.4 g/dL (1.3-4.6); Glucose 98 mg/dL (65-115); Osmolality Calculated 292 mOsm/kg (285-295); Sodium 140 mmol/L (136-145); Total Bilirubin 0.5 mg/dL (0.15-1.2); Total Protein 6.4 g/dL (6.6-8.7)
--- NOTE | 2023-03-17 10:56 | W.ED.GIBLEED ---
HPI - GI Bleed General: Chief complaint: GI Bleed Stated complaint: blood in stool Time Seen by Provider: 03/17/23 09:51 Source: patient Mode of arrival: ambulatory History of Present Illness: 87-year-old female who presents emergency room from home complaining of hematochezia. She has had it for the last couple of days. She did not answer tried a couple times to call over she had a colonoscopy last week there were some polyps and a mass found according to the daughter who is with her. They have not heard back on the pathology on these biopsies yet. She is not on any anticoagulants. In February she was transfused twice it appears because of anemia. Hemoglobin got down to 7.7 and 7.3. Her most recent hemoglobin on March 15 was 10.3. No vomiting no fever some mild abdominal discomfort. She also recently had a fall which she sustained a left clavicle fracture she is in a sling for this. MD complaint: blood streaked emesis Onset (ago): hour(s) Pain Consistency: intermittent Severity: mild Relieving factors: none Exacerbating factors: none Context: history of GI bleed and other Associated symptoms: Reports abdominal pain, malaise and poor appetite; Denies chills, easy bruising, epistaxis, fever(s), headache(s), nausea, other bleeding, rash, syncope, vomiting or weakness Treatments Prior to Arrival: none Review of Systems Const: Reports: fatigue and malaise; Denies: fever(s) or chills ENMT: Denies: epistaxis Card: Denies: chest pain, palpitations, irregular heart rhythm or syncope Resp: Denies: dyspnea, productive cough or non-productive cough GI: Reports: abdominal pain and hematochezia; Denies: nausea or vomiting : Denies: flank pain, difficulty voiding, dysuria, urinary frequency or urinary urgency Musc: Denies: neck pain or back pain Skin/Breast: Denies: rash or pruritus Neuro: Denies: headache(s) Tejinder/Lymph: Denies: easy bruising PFSH ED PFSH: Medical History Anxiety Chronic pain of both shoulders Depression Diastolic dysfunction Echo 03/202222 grade 1 diastolic dysfunction, EF 65% Dyslipidemia Pineal gland, tumor benign Restless leg Vitamin D deficiency Surgical History History of appendectomy History of arthroplasty of left hip History of cataract surgery History of cholecystectomy History of esophageal dilatation Family History Other Cancer Denies family history of GIB (gastrointestinal bleeding) Social History Smoking and tobacco status: never smoked Alcohol intake: never Substance/Drug Use: never Current occupation: Retired Physical Exam Const: GENERAL APPEARANCE: cooperative and comfortable ORIENTATION/CONSCIOUSNESS: Yes awake, Yes oriented to person, Yes oriented to place and Yes oriented to time HENMT: COMMON NORMALS: normocephalic, atraumatic and hearing grossly normal bilaterally HEAD & SCALP: normocephalic and atraumatic Resp: COMMON NORMALS: normal respiratory effort, No retractions, No use of accessory muscles and clear to auscultation bilaterally AUSCULTATION: clear to auscultation bilaterally Cardio: COMMON NORMALS: regular rate, regular rhythm and No murmurs present (Cardio) RATE: regular rate RHYTHM: regular rhythm GI: COMMON NORMALS: Soft to palpation and No hepatosplenomegaly present AUSCULTATION: Yes normoactive bowel sounds PALPATION: Yes Soft to palpation, No Tenderness to palpation present (GI), No Guarding due to palpation present (GI) and Yes No hepatosplenomegaly present Extremity: COMMON NORMALS: normal to inspection, capillary refill normal, no clubbing, cyanosis or edema, no calf tenderness and no pedal edema Neuro: SENSORIUM/ORIENTATION: Yes oriented to person, Yes oriented to place and Yes oriented to time Skin: COMMON NORMALS: no rashes or lesions noted GENERAL SKIN EXAM: no rashes or lesions noted Course Vital Signs: Vital signs: Vital Signs Temperature 97.9 F 03/17/23 09:56 Pulse Rate 76 03/17/23 11:00 Respiratory Rate 17 03/17/23 11:00 Blood Pressure 135/74 03/17/23 11:00 Pulse Oximetry 93 03/17/23 11:00 Oxygen Delivery Me thod Room Air 03/17/23 11:00 MDM - GI Bleed Medical Decision Making Hemoglobin stable. We will discharge patient home recheck hemoglobin the next few days. Return if has further problems. Source of the bleeding is likely from the colonic mass which has previously been evaluated they are waiting on pathology report. Lab Data 03/17/23 10:15 03/17/23 10:15 Radiology Impressions Chest X-Ray 03/17/23 09:53 Impression: Atherosclerosis. Laboratory Results WBC 6.7 10^3/uL (4.0-10.0) 03/17/23 10:15 RBC 4.57 10^6/uL (4.1-5.3) 03/17/23 10:15 Hgb 10.6 g/dL (11.5-15.3) L 03/17/23 10:15 Hct 36.4 % (37.0-47.0) L 03/17/23 10:15 MCV 79.6 fl (81-99) L 03/17/23 10:15 MCH 23.2 pg (28.0-34.0) L 03/17/23 10:15 MCHC 29.1 g/dL (30.0-36.0) L 03/17/23 10:15 RDW 22.4 % (12.1-15.1) H 03/17/23 10:15 Plt Count 311 10^3/cmm (130-400) 03/17/23 10:15 MPV 9.3 fL (7.4-10.4) 03/17/23 10:15 Neut % (Auto) 74.6 % 03/17/23 10:15 Lymph % (Auto) 13.2 % 03/17/23 10:15 [place] % (Auto) 7.1 % 03/17/23 10:15 Eos % (Auto) 4.2 % 03/17/23 10:15 Baso % (Auto) 0.3 % 03/17/23 10:15 Neut # (Auto) 4.96 10^3/uL (1.8-7.7) 03/17/23 10:15 Lymph # (Auto) 0.9 10^3/uL (0.8-4.8) 03/17/23 10:15 [place] # (Auto) 0.5 10^3/uL (0.2-0.9) 03/17/23 10:15 Eos # (Auto) 0.3 10^3/uL (0.0-0.8) 03/17/23 10:15 Baso # (Auto) 0.0 10^3/uL (0.0-0.1) 03/17/23 10:15 Nucleated RBC % (auto) 0 % 03/17/23 10:15 Nucleated RBCs # 0.0 /100WBC 03/17/23 10:15 PT 14.00 SECONDS (12.1-14.9) 03/17/23 10:15 INR 1.05 (0.8-1.2) 03/17/23 10:15 APTT 30.5 SECONDS (23.9-36.7) 03/17/23 10:15 Sodium 140 mmol/L (136-145) 03/17/23 10:15 Potassium 4.0 mmol/L (3.5-5.1) 03/17/23 10:15 Chloride 100 mmol/L (98-107) 03/17/23 10:15 Carbon Dioxide 28 mmol/L (22-29) 03/17/23 10:15 Anion Gap 16.0 (5-19) 03/17/23 10:15 BUN 17 mg/dL (8-23) 03/17/23 10:15 Creatinine 1.2 mg/dL (0.5-0.9) H 03/17/23 10:15 GFR Calculation Not Reportable 03/17/23 10:15 Glucose 98 mg/dL (65-115) 03/17/23 10:15 Calculated Osmolality 292 mOsm/kg (285-295) 03/17/23 10:15 Calcium 8.8 mg/dL (8.5-10.5) 03/17/23 10:15 Total Bilirubin 0.5 mg/dL (0.15-1.2) 03/17/23 10:15 AST 18 U/L (0-32) 03/17/23 10:15 ALT 11 U/L (0-33) 03/17/23 10:15 Alkaline Phosphatase 96 U/L (35-105) 03/17/23 10:15 Total Protein 6.4 g/dL (6.6-8.7) L 03/17/23 10:15 Albumin 4.0 g/dL (3.5-5.2) 03/17/23 10:15 Globulin 2.4 g/dL (1.3-4.6) 03/17/23 10:15 Urine Color Yellow (Yellow) 03/17/23 11:15 Urine Appearance Clear (CLEAR) 03/17/23 11:15 Urine pH 5 (5-7) 03/17/23 11:15 Ur Specific [place] 1.010 (1.005-1.030) 03/17/23 11:15 Urine Protein Neg (Negative) 03/17/23 11:15 Urine Glucose (UA) Norm (Normal) 03/17/23 11:15 Urine Ketones Negative (Negative) 03/17/23 11:15 Urine Blood Neg (Negative) 03/17/23 11:15 Urine Nitrate Negative (Negative) 03/17/23 11:15 Urine Bilirubin Neg (Negative) 03/17/23 11:15 Urine Urobilinogen Norm mg/dL (Negative) 03/17/23 11:15 Ur Leukocyte Esterase Negative (Negative) 03/17/23 11:15 Discharge Plan Discharge Patient Disposition: Home Clinical Impression: Lower GI bleed, Closed left clavicular fracture, Colonic mass Condition: Stable Prescriptions: No Action nitroglycerin 0.4 mg tablet, sublingual 0.4 mg sublingual Q5M PRN (Reason: chest pain) 30 Days Qty: 30 0RF Rx Instructions: do not exceed 3 doses per episode hydrocodone-acetaminophen 5-325 mg tablet 1 tab PO Q6H PRN (Reason: pain) 5 Days Qty: 20 0RF albuterol sulfate [ProAir HFA] 90 mcg/actuation HFA aerosol inhaler 2 puff inhalation QID PRN (Reason: shortness of breath or wheezing) Qty: 8.5 1RF atorvastatin 40 mg tablet 40 mg PO DAILY 30 Days Qty: 30 5RF citalopram [Celexa] 20 mg tablet 30 mg PO DAILY 30 Days Qty: 45 5RF alprazolam [Xanax] 0.25 mg tablet 0.25 mg PO BID PRN (Reason: anxiety) Qty: 60 1RF neomycin 500 mg tablet 1 g PO ONCE Qty: 6 0RF Rx Instructions: take 2 tabs at 3 PM, 4 PM, and 10PM day before surgery pramipexole 0.125 mg tablet 0.125 mg PO DAILY furosemide 20 mg tablet 20 mg PO DAILY PRN (Reason: prn) 30 Days Qty: 30 0RF Discharge Orders: Discharge ED (Routine); Ordered 08/03/23 Ordered By: Dominik Cruz Referrals: Mic Salguero MD [Primary Care Provider] - Patient Instructions: Opioid Safety, Pain Management Activity Restrictions/Additional Instructions: You were seen today for lower GI bleeding. Your hemoglobin has actually increased from the last time it was checked. You should have it rechecked tomorrow. It is likely you will continue to have some blood with bowel movements. Coding Level of Care Code ED Personnel Psychologist for Dennis Fernández
[2023-03-17 11:00] VITALS: BP 135/74; PULSE 76; RESP 17; O2SAT 93
[2023-03-17 11:31] LABS: Add Urine Microscopic? NO; Charge for UA Resulting for Rev
[2023-03-17 11:37] LABS: Bilirubin Urine Neg (Negative); Blood Urine Neg (Negative); Glucose Urine UA Norm (Normal); Ketones Urine Negative (Negative); Leukocyte Esterase Urine Negative (Negative); Nitrate Urine Negative (Negative); Protein Urine Neg (Negative); Urine Appearance Clear (CLEAR); Urine Color Yellow (Yellow); Urobilinogen Urine Norm (Negative); pH Urine 5 (5-7)
== END 2023-03-17 12:20 | disposition home or self-care (01) ==
PROVIDERS: Emergency Provider Family Medicine; PCP Family Medicine
DX: K92.2 Gastrointestinal hemorrhage, unspecified (principal); K63.9 Disease of intestine, unspecified; S42.002A Fracture of unspecified part of left clavicle, initial encounter for closed fracture; X58.XXXA Exposure to other specified factors, initial encounter; E78.5 Hyperlipidemia, unspecified
CPT/HCPCS: 36415; 71045; 80053; 81003; 85025; 85610; 85730; 99284

== ENCOUNTER → 2023-03-18 08:54 | Outpatient (BNVA) | payer MEDICARE, SELFPAY | PROVIDERS: PCP Family Medicine; Visit Provider Nurse Practitioner | DX: K92.2 Gastrointestinal hemorrhage, unspecified (principal) | CPT/HCPCS: 85025 ==

== ENCOUNTER 2023-03-22 15:41 | Outpatient (CLI) | payer MEDICARE, SELFPAY ==
--- NOTE | 2023-03-22 16:00 | CT_ITS ---
WS: [id number] CT ABDOMEN PELVIS TECHNIQUE: Contrast-enhanced CT of the abdomen and pelvis with coronal and sagittal reformatted image s. CLINICAL INFORMATION: colon mass COMPARISON: None. DLP: 317.[address] scans at [facility] use at least one of these dose optimization techniques: automated e xposure control; mA and/or kV adjustment per patient size (includes targeted exams where dose is matc hed to clinical indication); or iterative reconstruction. FINDINGS:Enhancing polypoid lesion in the ascending colon likely corresponds to the recent colonoscop y findings measuring 1.8 x 1.6 cm. Associated luminal narrowing. Mild diffuse fatty infiltration liver. No hepatic lesions. Normal portal vein and splenic vein. Stephanie l spleen. Normal pancreatic parenchymal enhancement. Small esophageal hernia. Lung bases are well aerated. Normal caliber abdominal aorta. Celiac and SMA are patent. Mild aortic calcification. Left ISABEL degrades images in the pelvis. Adrenal glands are normal. Normal renal parenchymal enhancement. No hydronephrosis. No lymphadenopath y in the abdomen or pelvis. Sigmoid diverticulosis. Tortuous sigmoid colon. No evidence of high-grade small or large bowel obstruction. 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 IMPRESSION: 1. Enhancing mass in the ascending colon measuring 1.8 x 1.6 cm with associated luminal narrowing. 2. No adenopathy in the abdomen or pelvis. 3. Sigmoid diverticulosis. 4. Left ISABEL degrades images in the pelvis. 5. Small esophageal hernia. 6. 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
[2023-03-22] MEDS: iohexol 350 mg/mL 500 mL Btl (per mL) IV (16:57)
== END 2023-03-22 15:42 | disposition home or self-care (01) ==
PROVIDERS: PCP Family Medicine; Visit Provider Surgery
DX: K63.89 Other specified diseases of intestine (principal); K57.30 Diverticulosis of large intestine without perforation or abscess without bleeding; K44.9 Diaphragmatic hernia without obstruction or gangrene; M47.896 Other spondylosis, lumbar region
CPT/HCPCS: 74177; Q9967

== ENCOUNTER → 2023-03-24 11:41 | Outpatient (BNVA) | payer MEDICARE, SELFPAY | PROVIDERS: PCP Family Medicine; Visit Provider Student in an Organized Health Care Education/Training Program | DX: S42.002A Fracture of unspecified part of left clavicle, initial encounter for closed fracture; X58.XXXA Exposure to other specified factors, initial encounter; Z09 Encounter for follow-up examination after completed treatment for conditions other than malignant neoplasm | CPT/HCPCS: 23500; 73030; 99212; 99213 ==

== ENCOUNTER 2023-03-28 14:07 | Inpatient (IN) | payer MEDICARE, SELFPAY ==
[2023-03-25 12:57] VITALS: BMI 25.1
[2023-03-28] VITALS (16 sets, daily range): BP systolic 120–183; BP diastolic 68–89; PULSE 73–89; RESP 15–18; TEMP 36.1–36.8; O2SAT 93–100
--- NOTE | 2023-03-28 11:32 | W.PM.OPSUD ---
Surgery/Procedure H&P Update DATE OF PROCEDURE: March 28, 2023 DATE H&P PERFORMED: 03/24/23 H&P UPDATE INFORMATION: I have reviewed H&P completed within last 30 days, I have examined patient prior to procedure and No changes to prior documentation PLANNED PROCEDURE: Operation Date: 03/28/23 12:50 Proposed Procedures p 71025 right hemicolectomy K63.89 INPATIENT(Right) - Moses Nuñez DO
[2023-03-28] MEDS: sodium chloride 0.9% 1,000 ML 30 ML IV (11:37)
[2023-03-28] MEDS: heparin 5,000 unit/mL INJ 1 mL 5000 UNIT SUBCUT ×3 (11:38→22:48)
[2023-03-28 11:55] LABS: Basophils % 0.6 %; Eosinophils # 0.3 10^3/uL (0.0-0.8); Eosinophils % 4.8 %; Hematocrit 34.9 % (37.0-47.0); Hemoglobin 10.4 g/dL (11.5-15.3); Lymphocytes # 1.2 10^3/uL (0.8-4.8); Lymphocytes % 22.7 %; Mean Corpuscular HGB Conc 29.8 g/dL (30.0-36.0); Mean Corpuscular Hemoglobin 23.3 pg (28.0-34.0); Mean Corpuscular Volume 78.3 fl (81-99); Monocytes # 0.4 10^3/uL (0.2-0.9); Monocytes % 7.5 %; Neutrophils # 3.33 10^3/uL (1.8-7.7); Nucleated Red Blood Cells % 0 %; Platelet Count 369 10^3/cmm (130-400); Red Blood Count 4.46 10^6/uL (4.1-5.3); Red Cell Distribution Width 21.1 % (12.1-15.1); White Blood Count 5.2 10^3/uL (4.0-10.0)
[2023-03-28] MEDS: piperacillin-tazobactam 3.375 GM in sodium chloride 0.9% (plus) 50 ML IV (12:11)
[2023-03-28 12:19] LABS: Blood Urea Nitrogen 11 mg/dL (8-23); Carbon Dioxide 27 mmol/L (22-29); Chloride 104 mmol/L (98-107); Glucose 108 mg/dL (65-115); Osmolality Calculated 290 mOsm/kg (285-295); Sodium 140 mmol/L (136-145)
[2023-03-28 12:21] LABS: Anion Gap 13.4 (5-19); Potassium 4.4 mmol/L (3.5-5.1)
[2023-03-28] MEDS: lidocaine-epi 2% 20 mL INJ INJECTION (13:06)
--- NOTE | 2023-03-28 13:22 | ANES.PREANE2 ---
Pre-Anesthetic Assessment Height/Weight: Height 1.55 m Weight 60.328 kg Temp Pulse Resp BP Pulse Ox O2 Del Method 98 F 89 16 120/81 96 Room Air 03/28/23 11:07 03/28/23 11:07 03/28/23 11:07 03/28/23 11:07 03/28/23 11:07 03/28/23 11:07 Operation Date: 03/28/23 12:50 Proposed Procedures p [id number] right hemicolectomy K63.89 INPATIENT(Right) - Moses Nuñez DO Familial anesthetic complications: none Was Beta Keshawn taken within 24 hours: N/A Was Clonidine taken within 24 hours: N/A Last intake: Intake Last Liquid Date 03/27/23 Last Liquid Time 22:00 Last Solid Date 03/26/23 Last Solid Time 18:00 Social No alcohol and No tobacco Exam alert, oriented x 3, clear to auscultation bilaterally and regular rate & rhythm Airway Submandibular: within normal limits Cervical ROM: within normal limits Mallampati: Class II Dentition: chipped CV/HEM Anemia and Hypertension CONCLUSIONS ?Normal left ventricular size, systolic function and wall ?thickness, with no regional wall motion abnormalities. Left ?ventricular ejection fraction is estimated at 65 %. Grade I/IV ?diastolic dysfunction (abnormal relaxation filling pattern), ?normal to mildly elevated filling pressures. ?Structurally normal mitral valve. Trace mitral valve ?regurgitation. ?There are no prior echocardiogram studies to compare. ?Dr. Kashif Girard MD ?(Electronically Signed) ?Final Date:? ? ? March Chronic Renal Insufficiency Neuropsych Anxiety Anesthetic Plan ASA status: 3 Anesthesia: General Medications/Allergies Home Medications Medication Instructions Recorded Confirmed Last Taken Type nitroglycerin 0.4 mg sublingual 0.4 mg sublingual Q5M PRN chest 04/15/22 03/25/23 Unknown Rx tablet pain 30 days #30 tabs albuterol sulfate 90 mcg/actuation 2 puff inhalation QID PRN 07/27/22 03/25/23 03/25/23 Rx aerosol inhaler (ProAir HFA) shortness of breath or wheezing #8.5 grams atorvastatin 40 mg tablet 40 mg PO DAILY 30 days #30 tabs 03/01/23 03/25/23 03/25/23 Rx citalopram 20 mg tablet (Celexa) 30 mg PO DAILY 30 days #45 tabs 03/01/23 03/25/23 03/25/23 Rx furosemide 20 mg tablet 20 mg PO DAILY PRN prn 30 days #30 03/10/23 03/25/23 03/25/23 Rx tabs pramipexole 0.125 mg tablet 0.125 mg PO DAILY 03/17/23 03/25/23 03/25/23 History alprazolam 0.25 mg tablet (Xanax) 0.25 mg PO BID PRN anxiety #60 tabs 03/22/23 03/25/23 03/25/23 Rx neomycin 500 mg tablet 1 g PO ONCE #6 tabs 03/22/23 03/25/23 03/25/23 Rx hydrocodone 5 mg-acetaminophen 325 1 tab PO Q6H PRN pain 5 days #20 03/24/23 03/25/23 03/25/23 Rx mg tablet tabs Allergies Allergy/AdvReac Type Severity Reaction Status Date / Time No Known Drug Allergies Allergy Intermediate na Verified 03/25/23 12:51 Current Medications Generic Name Dose Route Start Last Admin Trade Name Freq PRN Reason Stop Dose Admin Sodium Chloride 1,000 mls @ 30 mls/hr 03/28/23 11:00 03/28/23 11:37 Sodium Chloride 0.9% IV 03/29/23 10:59 30 mls/hr .Q24H SHERWIN Administration PFSH Anesthesia Medical History Anxiety Chronic pain of both shoulders Depression Diastolic dysfunction Echo 03/202222 grade 1 diastolic dysfunction, EF 65% Dyslipidemia Pineal gland, tumor benign Restless leg Vitamin D deficiency Surgical History History of appendectomy History of arthroplasty of left hip History of cataract surgery History of cholecystectomy History of esophageal dilatation Family History Other Cancer Denies family history of GIB (gastrointestinal bleeding) Social History Smoking and tobacco status: never smoked Alcohol intake: never Substance/Drug Use: never Current occupation: Retired Data Anesthesia 03/28/23 11:40 03/28/23 11:40 Short CBC 03/28/23 Range/Units 11:40 WBC 5.2 (4.0-10.0) 10^3/uL Hgb 10.4 L (11.5-15.3) g/dL Hct 34.9 L (37.0-47.0) % MCV 78.3 L (81-99) fl Plt Count 369 (130-400) 10^3/cmm Neut % (Auto) 64.0 % Neut # (Auto) 3.33 (1.8-7.7) 10^3/uL BMP 03/28/23 11:40 Sodium 140 Potassium 4.4 Chloride 104 Carbon Dioxide 27 BUN 11 Creatinine 1.1 H Glucose 108 Calcium 9.0 Cardiac Studies: Echocardiogram 04/09/22
--- NOTE | 2023-03-28 14:22 | PM.OP ---
Operative Report Date of procedure: March 28, 2023 Pre-op diagnosis: Ascending colon cancer Post-op diagnosis: same Procedure done: Laparoscopic right hemicolectomy Implants: None Specimens removed/disposition: Right hemicolectomy specimen Surgeon: Dr. Moses Nuñez DO Anesthesia: General Estimated blood loss (mL): 20 Complications: None apparent Brief History: Very pleasant 87-year-old female was found to have a malignant right colon mass. She also had a large flat polyp at the hepatic flexure that was inked distally. Laparoscopic right hemicolectomy was indicated. The risk and benefits were explained and documented. Procedure: Patient was wheeled in operative room placed on the OR table in the supine position. The abdomen was selected prepped and draped in usual sterile fashion. General endotracheal intubation was achieved by department of anesthesia. A time was performed. All present were in agreement. Prior to surgery a Brown catheter and NG tube were placed. 2% lidocaine with epinephrine was used to anesthetize the skin in the left upper quadrant. A 15 blade scalpel was used to make a stab incision. A Veress needle was used to make intra-abdominal insufflation to 15 mmHg. After localizing, a 12 mm trocar was placed in the umbilicus. Two 5 mm trocars were placed in the lower abdomen and 1 in the right lower quadrant and 1 in the left lower quadrant. There were significant adhesions between the right colon and the anterior abdominal wall secondary to previous surgeries. These adhesions were taken down with the Enseal. The right white line of Toldt was then taken down using Enseal. Hepatic flexure was taken down with Enseal as well. There was sufficient laxity at this point to externalize the specimen. A 5 cm incision was then carried cephalad from the umbilicus. The right colon up to the transverse colon along with the terminal ileum was then externalized. Distal to the inked margin, a [id number] functional end-to-end anastomosis was made between the terminal ileum and the transverse colon using a JAMES blue load 100 mm stapler x2. The abdomen was then inspected and there was no bleeding. A total of 20 cc of blood loss occurred and there was no spillage of bowel contents. The bowel was then placed back into the abdomen and omentum was placed over the anastomosis. The midline incision was then closed with #1 PDS x2 in a running fashion. Skin was closed with yumiko. Patient tolerated procedure well.
[2023-03-28] MEDS: fentaNYL 50 mcg/mL INJ 2mL IVP (14:33)
[2023-03-28] MEDS: HYDROmorphone 1 mg/mL INJ 1 mL 0.5 MG IVP ×2 (16:18→19:43)
[2023-03-28] MEDS: pantoprazole 40 mg SDV IVP (16:19)
[2023-03-28] MEDS: dextrose 5%-sod chloride 0.45% 1,000 ML 75 ML IV (16:20)
--- NOTE | 2023-03-28 16:55 | ANE.PACU2 ---
Inpatient post-anesthesia follow up: Airway intact: Yes Vital signs: Temperature 97.1 F Pulse Rate 78 Respiratory Rate 15 Blood Pressure 144/84 Pulse Oximetry 95 Oxygen Delivery Me thod Nasal Cannula Oxygen Flow Rate 3 Fraction of Inspir ed Oxygen Hydration adequate: Yes Nausea and vomiting: No Pain level: 3 Mental status: Baseline
[2023-03-29] VITALS (7 sets, daily range): BP systolic 83–143; BP diastolic 48–80; PULSE 77–87; RESP 16–20; TEMP 36.2–36.8; O2SAT 95–99
[2023-03-29] MEDS: HYDROmorphone 1 mg/mL INJ 1 mL 0.5 MG IVP ×2 (04:28→19:05)
[2023-03-29] MEDS: dextrose 5%-sod chloride 0.45% 1,000 ML 75 ML IV ×2 (04:48→17:45)
[2023-03-29 06:36] LABS: Basophils % 0.1 %; Hematocrit 33.6 % (37.0-47.0); Hemoglobin 9.9 g/dL (11.5-15.3); Lymphocytes # 0.7 10^3/uL (0.8-4.8); Lymphocytes % 5.4 %; Mean Corpuscular HGB Conc 29.5 g/dL (30.0-36.0); Mean Corpuscular Hemoglobin 23.5 pg (28.0-34.0); Mean Corpuscular Volume 79.8 fl (81-99); Mean Platelet Volume 9.1 fL (7.4-10.4); Monocytes # 0.8 10^3/uL (0.2-0.9); Monocytes % 6.5 %; Neutrophils # 10.48 10^3/uL (1.8-7.7); Neutrophils % 87.6 %; Nucleated Red Blood Cells % 0 %; Platelet Count 311 10^3/cmm (130-400); Red Blood Count 4.21 10^6/uL (4.1-5.3); Red Cell Distribution Width 20.7 % (12.1-15.1)
[2023-03-29] MEDS: heparin 5,000 unit/mL INJ 1 mL 5000 UNIT SUBCUT ×3 (06:41→23:01)
[2023-03-29 07:37] LABS: Anion Gap 12.1 (5-19); Blood Urea Nitrogen 11 mg/dL (8-23); Calcium 8.5 mg/dL (8.5-10.5); Carbon Dioxide 24 mmol/L (22-29); Chloride 103 mmol/L (98-107); Glucose 157 mg/dL (65-115); Osmolality Calculated 283 mOsm/kg (285-295); Potassium 4.1 mmol/L (3.5-5.1); Sodium 135 mmol/L (136-145)
[2023-03-29 08:06] LABS: Magnesium 1.8 mg/dL (1.7-2.3)
--- NOTE | 2023-03-29 09:49 | PC.CHAP ---
Pastoral Care Encounter/Spiritual Assessment Type of Contact [] Declined mate chief visit [] Patient/Family/Request visit [] Outpatient visit [] Follow-up visit [] Physician referral [] Code/Alert [x] Routine visit [] Staff referral [] Actively dying [] Patient sleeping [] Family support [] [] Out of room [] Palliative care [] [] Receiving care in room [] Pre-surgical visit [] Trauma [] Long length of stay [] ICU visit [] Other: Relational/Emotional Strength [x] Patient feels connected with others/family/visitors/staff [] Distress [] Loneliness/isolation [] Abandonment Spirituality of Patient [x] Person of Helga [] Attends [employer] of their Helga [x] Believes in Prayer [] Reads Bible or Bahai materials [] There are Spiritual issues to be addressed Pcts Interventions [x] Prayer [x] Active listening [] Non-anxious presence [] Spiritual/emotional support [] Crisis/trauma care [] Spiritual counseling [] Bereavement support [] Provided bereavement packet [] Provided Bible/devotional materials [] Provided toy/stuffed animal, coloring book to patient or family member [] Provided Communion [] Anointing/[place] [] Salvation [x] Completed spiritual assessment [] Other: Impact on Illness or Injury [] Angry [] Fearful [] Anxious [] Often cries [] Exhaustion [] Unable to work [] Unable to attend amish [] Unable to walk/stand [] Unable to read [] Unable to drive [] Unable to eat/drink [] Unable to sleep [] Unable to be with family [] Patient intubated [] Other: Summary Time spent with patient 5 min
--- NOTE | 2023-03-29 10:23 | PM.PN ---
Subjective Subjective: Pain controlled. No flatus yet Vitals/I&O/Wt Last Vital Signs Temp 98.3 F 03/31/23 07:55 Pulse 78 03/31/23 07:55 Resp 16 03/31/23 07:55 BP 118/62 03/31/23 07:55 Pulse Ox 93 03/31/23 07:55 O2 Del Method Nasal Cannula 03/31/23 07:55 O2 Flow Rate 2 03/30/23 20:00 03/30/23 03/31/23 03/31/23 22:59 06:59 14:59 Intake Total 1232.5 / 1232.5 Balance 1232.5 / 1232.5 Physical Exam Narrative: Abdomen soft and appropriately tender Urinary Catheter Management: Brown: Cath Placed During This Visit: yes, but has since been removed by the nurse Reason for Continuing Indwelling Catheter: Other Urinary Catheter Date of Insertion: 03/28/23 Urinary Catheter Time of Insertion: 12:50 Date Urinary Catheter Removed: 03/29/23 Time Urinary Catheter Discontinued: 18:28 Data 03/31/23 05:32 03/31/23 05:32 A&P Assessment and plan (1) Colon cancer: Plan Status post right hemicolectomy May have ice chips See orders Attestations Medical Necessity Statement*: Patient requires at least 2 more nights in the hospital for recovery and return of bowel function after laparoscopic right hemicolectomy Coding Level of Care Code Acute Code for Chg Fwd Diagnoses Colon cancer C18.9
[2023-03-29] MEDS: ketorolac 30 mg/mL INJ 15 MG IVP ×2 (10:38→17:45)
[2023-03-29] MEDS: pantoprazole 40 mg SDV IVP (17:46)
[2023-03-30] VITALS (10 sets, daily range): BP systolic 100–136; BP diastolic 62–80; PULSE 70–84; RESP 14–18; TEMP 36.2–36.9; O2SAT 95–100
[2023-03-30] MEDS: HYDROmorphone 1 mg/mL INJ 1 mL 0.5 MG IVP ×2 (04:14→13:44)
[2023-03-30 05:11] LABS: Basophils % 0.3 %; Eosinophils % 0.4 %; Lymphocytes # 0.6 10^3/uL (0.8-4.8); Lymphocytes % 8.4 %; Mean Corpuscular HGB Conc 29.6 g/dL (30.0-36.0); Mean Corpuscular Hemoglobin 23.2 pg (28.0-34.0); Mean Corpuscular Volume 78.3 fl (81-99); Mean Platelet Volume 9.7 fL (7.4-10.4); Monocytes # 0.4 10^3/uL (0.2-0.9); Monocytes % 5.1 %; Neutrophils % 85.4 %; Nucleated Red Blood Cells % 0 %; Platelet Count 244 10^3/cmm (130-400); Red Blood Count 3.45 10^6/uL (4.1-5.3); White Blood Count 7.4 10^3/uL (4.0-10.0)
[2023-03-30 05:41] LABS: Anion Gap 10.6 (5-19); Blood Urea Nitrogen 14 mg/dL (8-23); Carbon Dioxide 25 mmol/L (22-29); Chloride 105 mmol/L (98-107); Glucose 146 mg/dL (65-115); Magnesium 1.8 mg/dL (1.7-2.3); Osmolality Calculated 287 mOsm/kg (285-295); Potassium 3.6 mmol/L (3.5-5.1); Sodium 137 mmol/L (136-145)
[2023-03-30] MEDS: dextrose 5%-sod chloride 0.45% 1,000 ML 75 ML IV ×2 (05:54→20:41)
[2023-03-30] MEDS: heparin 5,000 unit/mL INJ 1 mL 5000 UNIT SUBCUT ×2 (06:34→16:24)
--- NOTE | 2023-03-30 10:24 | PM.PN ---
Subjective Subjective: Pain controlled. No flatus yet Vitals/I&O/Wt Last Vital Signs Temp 98.3 F 03/31/23 07:55 Pulse 78 03/31/23 07:55 Resp 16 03/31/23 07:55 BP 118/62 03/31/23 07:55 Pulse Ox 93 03/31/23 07:55 O2 Del Method Nasal Cannula 03/31/23 07:55 O2 Flow Rate 2 03/30/23 20:00 03/30/23 03/31/23 03/31/23 22:59 06:59 14:59 Intake Total 1232.5 / 1232.5 Balance 1232.5 / 1232.5 Physical Exam Narrative: Abdomen soft and appropriately tender Urinary Catheter Management: Brown: Cath Placed During This Visit: yes, but has since been removed by the nurse Reason for Continuing Indwelling Catheter: Other Urinary Catheter Date of Insertion: 03/28/23 Urinary Catheter Time of Insertion: 12:50 Date Urinary Catheter Removed: 03/29/23 Time Urinary Catheter Discontinued: 18:28 Data 03/31/23 05:32 03/31/23 05:32 A&P Assessment and plan (1) Colon cancer: Plan Status post right hemicolectomy Full liquid diet. Likely discharge home tomorrow See orders Attestations Medical Necessity Statement*: Patient requires at least 1 more night in the hospital for recovery after laparoscopic hemicolectomy Coding Level of Care Code Acute Code for Chg Fwd Diagnoses Colon cancer C18.9
[2023-03-30] MEDS: pantoprazole 40 mg SDV IVP (14:40)
[2023-03-31] MEDS: heparin 5,000 unit/mL INJ 1 mL 5000 UNIT SUBCUT ×2 (00:22→08:24)
[2023-03-31 03:08] VITALS: BP 106/71; PULSE 73; RESP 16; TEMP 36.8; O2SAT 98
[2023-03-31 05:54] LABS: Basophils % 0.3 %; Eosinophils # 0.2 10^3/uL (0.0-0.8); Eosinophils % 3.9 %; Hemoglobin 8.1 g/dL (11.5-15.3); Lymphocytes # 0.9 10^3/uL (0.8-4.8); Lymphocytes % 15.3 %; Mean Corpuscular HGB Conc 28.9 g/dL (30.0-36.0); Mean Corpuscular Hemoglobin 23.1 pg (28.0-34.0); Mean Corpuscular Volume 79.8 fl (81-99); Mean Platelet Volume 9.3 fL (7.4-10.4); Monocytes # 0.3 10^3/uL (0.2-0.9); Monocytes % 5.6 %; Neutrophils # 4.42 10^3/uL (1.8-7.7); Neutrophils % 74.6 %; Nucleated Red Blood Cells % 0 %; Platelet Count 233 10^3/cmm (130-400); Red Blood Count 3.51 10^6/uL (4.1-5.3); Red Cell Distribution Width 20.8 % (12.1-15.1); White Blood Count 5.9 10^3/uL (4.0-10.0)
[2023-03-31 06:15] LABS: Anion Gap 9.7 (5-19); Blood Urea Nitrogen 9 mg/dL (8-23); Calcium 8.3 mg/dL (8.5-10.5); Carbon Dioxide 27 mmol/L (22-29); Chloride 108 mmol/L (98-107); Creatinine Clr Calc Pharmacy 41.3046; Glucose 107 mg/dL (65-115); Magnesium 1.7 mg/dL (1.7-2.3); Osmolality Calculated 291 mOsm/kg (285-295); Potassium 3.7 mmol/L (3.5-5.1); Sodium 141 mmol/L (136-145)
[2023-03-31 07:55] VITALS: BP 118/62; PULSE 78; RESP 16; TEMP 36.8; O2SAT 93
--- NOTE | 2023-03-31 10:17 | P.DS_ITS ---
Discharge Providers Date of Admission: 03/28/23 14:07 Date of Discharge: March 31, 2023 Attending Provider at Admission: Moses Nuñez DO Attending Provider at Discharge: Moses Nuñez DO Primary Care Provider: Mic Salguero MD Reason for Visit Reason for Visit: K63.99 Hospital Course Hospital Course This very pleasant 87-year-old female was found to have a sending colon cancer. She underwent laparoscopic right hemicolectomy without complication. She did well postoperatively and was discharged home on postoperative day #3 Physical Exam Narrative: General : Patient is well developed , no acute distress, oriented x3 Head : Normal cephalic, a-traumatic. Ears : Pinnae and external canal are normal. Hearing is normal. Eyes : PERRLA, Sclera and injection are normal. No conjunctival discharge. Nose : Mucous membranes are without erythema. Throat : buccal mucosa is normal, gums are without significant recession or hypertrophy. Lungs : Equal chest rise bilaterally, no use of accessory muscles, trachea is midline. Cor : Rate and rhythm are normal. Abdomen : Soft, ND, appropriately tender, no g/r/m, incisions intact without erythema or exudate Extremities : No edema, no cyanosis or clubbing, dorsalis pedis pulses are present bilaterally, non-tender to palpation of calves. Upper extremities are normal bilaterally. Back : non-tender to palpation, no CVA tenderness. Neuro : CN II - XII intact, Upper and lower extremities have equal and full strength Urinary Catheter Management: Brown: Cath Placed During This Visit: yes, but has since been removed by the nurse Reason for Continuing Indwelling Catheter: Other Urinary Catheter Date of Insertion: 03/28/23 Urinary Catheter Time of Insertion: 12:50 Date Urinary Catheter Removed: 03/29/23 Time Urinary Catheter Discontinued: 18:28 Discharge Data Studies Completed and Pending Pending at discharge Category Date Time Status Pathology: Surgical [PTH] Routine Pth 03/28/23 15:00 Received Laboratory Results WBC 5.9 10^3/uL (4.0-10.0) 03/31/23 05:32 RBC 3.51 10^6/uL (4.1-5.3) L 03/31/23 05:32 Hgb 8.1 g/dL (11.5-15.3) L 03/31/23 05:32 Hct 28.0 % (37.0-47.0) L 03/31/23 05:32 MCV 79.8 fl (81-99) L 03/31/23 05:32 MCH 23.1 pg (28.0-34.0) L 03/31/23 05:32 MCHC 28.9 g/dL (30.0-36.0) L 03/31/23 05:32 RDW 20.8 % (12.1-15.1) H 03/31/23 05:32 Plt Count 233 10^3/cmm (130-400) 03/31/23 05:32 MPV 9.3 fL (7.4-10.4) 03/31/23 05:32 Neut % (Auto) 74.6 % 03/31/23 05:32 Lymph % (Auto) 15.3 % 03/31/23 05:32 [place] % (Auto) 5.6 % 03/31/23 05:32 Eos % (Auto) 3.9 % 03/31/23 05:32 Baso % (Auto) 0.3 % 03/31/23 05:32 Neut # (Auto) 4.42 10^3/uL (1.8-7.7) 03/31/23 05:32 Lymph # (Auto) 0.9 10^3/uL (0.8-4.8) 03/31/23 05:32 [place] # (Auto) 0.3 10^3/uL (0.2-0.9) 03/31/23 05:32 Eos # (Auto) 0.2 10^3/uL (0.0-0.8) 03/31/23 05:32 Baso # (Auto) 0.0 10^3/uL (0.0-0.1) 03/31/23 05:32 Nucleated RBC % (auto) 0 % 03/31/23 05:32 Nucleated RBCs # 0.0 /100WBC 03/31/23 05:32 Sodium 141 mmol/L (136-145) 03/31/23 05:32 Potassium 3.7 mmol/L (3.5-5.1) 03/31/23 05:32 Chloride 108 mmol/L (98-107) H 03/31/23 05:32 Carbon Dioxide 27 mmol/L (22-29) 03/31/23 05:32 Anion Gap 9.7 (5-19) 03/31/23 05:32 BUN 9 mg/dL (8-23) 03/31/23 05:32 Creatinine 0.8 mg/dL (0.5-0.9) 03/31/23 05:32 GFR Calculation Not Reportable 03/31/23 05:32 Glucose 107 mg/dL (65-115) 03/31/23 05:32 Calculated Osmolality 291 mOsm/kg (285-295) 03/31/23 05:32 Calcium 8.3 mg/dL (8.5-10.5) L 03/31/23 05:32 Magnesium 1.7 mg/dL (1.7-2.3) 03/31/23 05:32 Blood Type O Positive 03/28/23 12:23 Rho(D) Type Positive 03/28/23 12:23 Antibody Screen Negative 03/28/23 12:23 Procedures Performed Laparoscopic right hemicolectomy Vitals Last Vital Signs Temp 98.3 F 03/31/23 07:55 Pulse 78 03/31/23 07:55 Resp 16 03/31/23 07:55 BP 118/62 03/31/23 07:55 Pulse Ox 93 03/31/23 07:55 O2 Del Method Nasal Cannula 03/31/23 07:55 O2 Flow Rate 2 03/30/23 20:00 Discharge Plan Discharge Patient Disposition: Home Condition: Stable Prescriptions: New hydrocodone-acetaminophen 5-325 mg tablet 1 tab PO Q6H PRN (Reason: pain) Qty: 20 0RF Colace 100 mg capsule 100 mg PO BID Qty: 14 0RF Continued nitroglycerin 0.4 mg tablet, sublingual 0.4 mg sublingual Q5M PRN (Reason: chest pain) 30 Days Qty: 30 0RF Rx Instructions: do not exceed 3 doses per episode albuterol sulfate [ProAir HFA] 90 mcg/actuation HFA aerosol inhaler 2 puff inhalation QID PRN (Reason: shortness of breath or wheezing) Qty: 8.5 1RF atorvastatin 40 mg tablet 40 mg PO DAILY 30 Days Qty: 30 5RF citalopram [Celexa] 20 mg tablet 30 mg PO DAILY 30 Days Qty: 45 5RF alprazolam [Xanax] 0.25 mg tablet 0.25 mg PO BID PRN (Reason: anxiety) Qty: 60 1RF pramipexole 0.125 mg tablet 0.125 mg PO DAILY furosemide 20 mg tablet 20 mg PO DAILY PRN (Reason: prn) 30 Days Qty: 30 0RF Held hydrocodone-acetaminophen 5-325 mg tablet 1 tab PO Q6H PRN (Reason: pain) 5 Days Qty: 20 0RF Hold Instructions: Resume on 04/05/23. Discontinued neomycin 500 mg tablet 1 g PO ONCE Qty: 6 0RF Rx Instructions: take 2 tabs at 3 PM, 4 PM, and 10PM day before surgery Discharge Orders: Discharge Order (Routine); Ordered 03/31/23 Ordered By: Moses Nuñez Referrals: Moses Nuñez DO [Physician] - 2 weeks Discharge Diet: Advance as tolerated Discharge Activity: Resume usual activity Patient Instructions: Opioid Safety Activity Restrictions/Additional Instructions: No lifting, pushing or pulling over 15 pounds for 6 weeks. Do not soak incisions underwater for 2 weeks. Shower daily. Discharge Attestations Time Spent in Discharge Care*: less than 30 min Status at Discharge: Cognitive status at discharge: cognitively intact , Behavioral status at discharge: cooperative , Quality Metrics Clinical Quality Measures [ No reported AMI, CVA or VTE this stay] Coding Level of Care Code Acute Code for Chg Fwd Diagnoses
[2023-03-31 12:00] VITALS: BP 120/60; PULSE 73; RESP 14; O2SAT 98
--- NOTE | 2023-03-31 12:32 | PC.SOCIAL ---
IMM Update pg 2 of IMM updated and reviewed w/ patient. Copy provided and signed and witnessed and Copy dated, initialed and placed in chart.
[2023-03-31 13:21] VITALS: BP 120/60; PULSE 73; RESP 14; TEMP 36.8; O2SAT 98
== END 2023-03-31 13:22 | disposition home health service (06) | DRG 331 ==
LOC: MEDSURG 14:08
PROVIDERS: Admitting Provider Surgery; PCP Family Medicine; Visit Provider Surgery
PROC: 0DTF4ZZ Resection of Right Large Intestine, Percutaneous Endoscopic Approach (ICD-10-PCS; CPT 44205; 2023-03-28 12:30)
DX: C18.2 Malignant neoplasm of ascending colon (principal); Z79.51 Long term (current) use of inhaled steroids; D64.9 Anemia, unspecified; I12.9 Hypertensive chronic kidney disease with stage 1 through stage 4 chronic kidney disease, or unspecified chronic kidney disease; N18.9 Chronic kidney disease, unspecified; F41.9 Anxiety disorder, unspecified; G89.29 Other chronic pain; M25.512 Pain in left shoulder; M25.511 Pain in right shoulder; E78.5 Hyperlipidemia, unspecified; G25.81 Restless legs syndrome; Z96.641 Presence of right artificial hip joint
CPT/HCPCS: 36415; 51702; 80048; 83735; 85025; 86850; 86900; 88309; 96372; C9113; J1100; J1170; J1644; J1885; J2371; J2405; J2543; J2704; J3010; J3490; J7030; J7799

== ENCOUNTER → 2023-04-04 13:07 | Outpatient (BNVA) | payer MEDICARE, SELFPAY | PROVIDERS: PCP Family Medicine; Visit Provider Nurse Practitioner | DX: C18.9 Malignant neoplasm of colon, unspecified (principal); D64.9 Anemia, unspecified | CPT/HCPCS: 85025 ==

== ENCOUNTER → 2023-04-12 08:28 | Outpatient (BNVA) | payer MEDICARE, SELFPAY | PROVIDERS: PCP Family Medicine; Visit Provider Surgery | DX: C18.9 Malignant neoplasm of colon, unspecified (principal); Z90.49 Acquired absence of other specified parts of digestive tract; Z98.890 Other specified postprocedural states | CPT/HCPCS: 99024 ==

== ENCOUNTER 2023-04-14 10:35 | Oncology outpatient (recurring) (ONCR) | payer MEDICARE, SELFPAY ==
[2023-04-14 11:25] VITALS: BP 136/84; PULSE 94; RESP 16; TEMP 36.8; O2SAT 96
[2023-04-14 12:08] LABS: Carcinoembryonic Antigen 1.7 ng/mL (0.0-4.7)
== END 2023-04-14 23:59 | disposition home or self-care (01) ==
PROVIDERS: PCP Family Medicine; Visit Provider Internal Medicine Medical Oncology
DX: C18.9 Malignant neoplasm of colon, unspecified (principal)
CPT/HCPCS: 36415; 82378; 99203

== ENCOUNTER → 2023-05-13 11:35 | Outpatient (BNVA) | payer MEDICARE, SELFPAY | PROVIDERS: PCP Family Medicine; Visit Provider Nurse Practitioner | DX: D64.9 Anemia, unspecified (principal); R53.1 Weakness | CPT/HCPCS: 80053; 84443; 85025 ==

== ENCOUNTER → 2023-06-24 11:46 | Outpatient (BNVA) | payer MEDICARE, SELFPAY | PROVIDERS: PCP Family Medicine; Visit Provider Nurse Practitioner Family | DX: E55.9 Vitamin D deficiency, unspecified (principal); E78.5 Hyperlipidemia, unspecified; F41.9 Anxiety disorder, unspecified; D64.9 Anemia, unspecified; Z79.899 Other long term (current) drug therapy | CPT/HCPCS: 80053; 80061; 81003; 82306; 82607; 82728; 82746; 83036; 83550; 84443; 85025; 87077; 87086; 87184 ==

== ENCOUNTER → 2023-06-29 11:40 | Outpatient (BNVA) | payer MEDICARE, SELFPAY | PROVIDERS: PCP Family Medicine; Visit Provider Family Medicine | DX: N39.0 Urinary tract infection, site not specified (principal) | CPT/HCPCS: 81000 ==

== ENCOUNTER 2023-07-12 06:00 | Outpatient (RCR) | payer MEDICARE, SELFPAY | END 2023-07-14 23:59 | disposition home or self-care (01) | LOC: WPT 06:00 | PROVIDERS: PCP Family Medicine; Visit Provider Nurse Practitioner Family | DX: M25.511 Pain in right shoulder (principal); M25.512 Pain in left shoulder; G89.29 Other chronic pain | CPT/HCPCS: 97110; 97112; 97161; 97530 ==

== ENCOUNTER → 2023-07-14 11:46 | Outpatient (BNVA) | payer MEDICARE, SELFPAY | PROVIDERS: PCP Family Medicine; Visit Provider Nurse Practitioner Family | DX: N39.0 Urinary tract infection, site not specified (principal) | CPT/HCPCS: 81003 ==

== ENCOUNTER 2023-07-15 06:00 | Outpatient (RCR) | payer MEDICARE, SELFPAY | END 2023-08-14 23:59 | disposition home or self-care (01) | LOC: WPT 06:00 | PROVIDERS: PCP Family Medicine; Visit Provider Nurse Practitioner Family | DX: M25.511 Pain in right shoulder (principal); M25.512 Pain in left shoulder; G89.29 Other chronic pain | CPT/HCPCS: 97110; 97112; 97530 ==

== ENCOUNTER → 2023-07-19 11:15 | Outpatient (BNVA) | payer MEDICARE, SELFPAY | PROVIDERS: PCP Family Medicine; Visit Provider Internal Medicine Cardiovascular Disease | DX: R60.0 Localized edema (principal); I51.89 Other ill-defined heart diseases; E78.5 Hyperlipidemia, unspecified | CPT/HCPCS: 99213 ==

== ENCOUNTER 2023-08-05 08:08 | Oncology outpatient (recurring) (ONCR) | payer MEDICARE, SELFPAY ==
[2023-07-22 08:32] VITALS: BMI 26.2
[2023-07-22 08:33] VITALS: BP 142/80; PULSE 86; RESP 17; TEMP 36.7; O2SAT 96
[2023-07-22 08:46] LABS: Basophils % 0.4 %; Eosinophils # 0.2 10^3/uL (0.0-0.8); Eosinophils % 4.7 %; Hematocrit 34.7 % (36-47); Lymphocytes # 1.2 10^3/uL (0.8-4.8); Mean Corpuscular HGB Conc 28.2 g/dL (30-55); Mean Corpuscular Hemoglobin 21.1 pg (27-33); Mean Corpuscular Volume 74.8 fl (85-98); Mean Platelet Volume 9.2 fL (7.4-10.4); Monocytes # 0.4 10^3/uL (0.2-0.9); Neutrophils # 2.95 10^3/uL (1.8-7.7); Neutrophils % 60.5 %; Nucleated Red Blood Cells % 0 %; Platelet Count 319 10^3/cmm (157-399); Red Blood Count 4.64 10^6/uL (3.85-5.65); White Blood Count 4.88 10^3/uL (3.29-11.43)
[2023-07-22 09:13] LABS: Carcinoembryonic Antigen 1.8 ng/mL (0.0-4.7)
[2023-07-22 09:24] LABS: Alanine Aminotransferase 10 U/L (0-33); Alkaline Phosphatase 95 U/L (35-105); Anion Gap 12.3 (5-19); Aspartate Amino Transferase 17 U/L (0-32); Blood Urea Nitrogen 16 mg/dL (8-23); Calcium 9.2 mg/dL (8.5-10.5); Carbon Dioxide 28 mmol/L (22-29); Chloride 105 mmol/L (98-107); Globulin 2.5 g/dL (1.3-4.6); Glucose 105 mg/dL (65-115); Osmolality Calculated 294 mOsm/kg (285-295); Potassium 4.3 mmol/L (3.5-5.1); Sodium 141 mmol/L (136-145); Total Bilirubin 0.4 mg/dL (0.15-1.2); Total Protein 6.5 g/dL (6.6-8.7)
[2023-07-22 09:25] LABS: Creatinine Clr Calc Pharmacy 30.6176
[2023-07-22 12:52] LABS: Ferritin 10 ng/mL (15-150); Iron 29 ug/dL (37-145); Percent Saturation 7.9 % (20-50); Total Iron Binding Capacity 365 mcg/dl; Unsaturated Iron Binding 336 ug/dL (112-347)
[2023-08-05 08:31] VITALS: BMI 27.1
[2023-08-05 08:34] VITALS: BP 134/84; PULSE 74; RESP 16; TEMP 36.6; O2SAT 98
[2023-08-05 08:53] LABS: Basophils % 0.5 %; Eosinophils # 0.2 10^3/uL (0.0-0.8); Eosinophils % 4.1 %; Hematocrit 33.7 % (36-47); Lymphocytes # 1.2 10^3/uL (0.8-4.8); Lymphocytes % 31.5 %; Mean Corpuscular HGB Conc 29.1 g/dL (30-55); Mean Corpuscular Hemoglobin 22.2 pg (27-33); Mean Corpuscular Volume 76.4 fl (85-98); Mean Platelet Volume 9.2 fL (7.4-10.4); Monocytes # 0.4 10^3/uL (0.2-0.9); Monocytes % 9.6 %; Neutrophils # 1.97 10^3/uL (1.8-7.7); Nucleated Red Blood Cells % 0 %; Platelet Count 270 10^3/cmm (157-399); Red Blood Count 4.41 10^6/uL (3.85-5.65); Red Cell Distribution Width 19.3 % (12.1-15.1); White Blood Count 3.65 10^3/uL (3.29-11.43)
[2023-08-05 09:15] LABS: Alanine Aminotransferase 9 U/L (0-33); Albumin Level 3.8 g/dL (3.5-5.2); Alkaline Phosphatase 78 U/L (35-105); Anion Gap 11.2 (5-19); Aspartate Amino Transferase 19 U/L (0-32); Blood Urea Nitrogen 16 mg/dL (8-23); Calcium 8.7 mg/dL (8.5-10.5); Carbon Dioxide 28 mmol/L (22-29); Chloride 107 mmol/L (98-107); Ferritin 10 ng/mL (15-150); Globulin 2.4 g/dL (1.3-4.6); Glucose 110 mg/dL (65-115); Iron 24 ug/dL (37-145); Osmolality Calculated 296 mOsm/kg (285-295); Potassium 4.2 mmol/L (3.5-5.1); Sodium 142 mmol/L (136-145); Total Bilirubin 0.5 mg/dL (0.15-1.2); Total Iron Binding Capacity 342 mcg/dl; Total Protein 6.2 g/dL (6.6-8.7); Unsaturated Iron Binding 318 ug/dL (112-347)
== END 2023-08-14 23:59 | disposition home or self-care (01) ==
PROVIDERS: Nurse Practitioner Family; PCP Family Medicine; Visit Provider Internal Medicine Medical Oncology
DX: C18.9 Malignant neoplasm of colon, unspecified (principal); D64.9 Anemia, unspecified; Z79.899 Other long term (current) drug therapy; Z53.9 Procedure and treatment not carried out, unspecified reason
CPT/HCPCS: 36415; 80053; 82378; 82728; 83540; 83550; 85025; 99214

== ENCOUNTER 2023-08-15 06:00 | Outpatient (RCR) | payer MEDICARE, SELFPAY | END 2023-09-14 23:59 | disposition home or self-care (01) | LOC: WPT 06:00 | PROVIDERS: PCP Family Medicine; Visit Provider Nurse Practitioner Family | DX: M25.511 Pain in right shoulder (principal); M25.512 Pain in left shoulder; G89.29 Other chronic pain | CPT/HCPCS: 97110; 97112; 97530 ==

== ENCOUNTER → 2023-12-15 13:47 | Outpatient (BNVA) | payer MEDICARE, SELFPAY | PROVIDERS: PCP Family Medicine; Visit Provider Nurse Practitioner Family | DX: D64.9 Anemia, unspecified | CPT/HCPCS: 80053; 82728; 83550; 85025 ==

== ENCOUNTER 2024-02-14 16:58 | Outpatient (CLI) | payer MEDICARE, SELFPAY ==
[2024-02-14 17:32] LABS: Basophils % 0.5 %; Eosinophils # 0.2 10^3/uL (0.0-0.8); Eosinophils % 3.6 %; Lymphocytes # 1.6 10^3/uL (0.8-4.8); Lymphocytes % 29.2 %; Mean Corpuscular HGB Conc 32.1 g/dL (30-55); Mean Corpuscular Volume 93.6 fl (85-98); Mean Platelet Volume 10.3 fL (7.4-10.4); Monocytes # 0.4 10^3/uL (0.2-0.9); Monocytes % 7.1 %; Neutrophils # 3.27 10^3/uL (1.8-7.7); Neutrophils % 59.4 %; Nucleated Red Blood Cells % 0 %; Platelet Count 198 10^3/cmm (157-399); Red Blood Count 5.13 10^6/uL (3.85-5.65); Red Cell Distribution Width 13.4 % (12.1-15.1); White Blood Count 5.51 10^3/uL (3.29-11.43)
[2024-02-14 18:01] LABS: Alanine Aminotransferase 9 U/L (0-33); Albumin Level 3.9 g/dL (3.5-5.2); Alkaline Phosphatase 83 U/L (35-105); Anion Gap 15.8 (5-19); Aspartate Amino Transferase 19 U/L (0-32); Blood Urea Nitrogen 14 mg/dL (8-23); Calcium 9.1 mg/dL (8.5-10.5); Carbon Dioxide 26 mmol/L (22-29); Chloride 103 mmol/L (98-107); Globulin 2.5 g/dL (1.3-4.6); Glucose 89 mg/dL (65-115); Osmolality Calculated 292 mOsm/kg (285-295); Potassium 3.8 mmol/L (3.5-5.1); Sodium 141 mmol/L (136-145); Total Bilirubin 0.5 mg/dL (0.15-1.2); Total Protein 6.4 g/dL (6.6-8.7)
[2024-02-14 20:21] LABS: Ferritin 207 ng/mL (15-150); Iron 62 ug/dL (37-145); Percent Saturation 27.5 % (20-50); Total Iron Binding Capacity 225 mcg/dl; Unsaturated Iron Binding 163 ug/dL (112-347)
== END 2024-02-14 16:59 | disposition home or self-care (01) ==
LOC: LAB 16:59
PROVIDERS: PCP Family Medicine; Visit Provider Nurse Practitioner Family
DX: Z90.49 Acquired absence of other specified parts of digestive tract (principal); D50.9 Iron deficiency anemia, unspecified; C18.9 Malignant neoplasm of colon, unspecified
CPT/HCPCS: 80053; 82728; 83540; 83550; 85025

== ENCOUNTER → 2024-02-27 12:51 | Outpatient (BNVA) | payer MEDICARE, SELFPAY | PROVIDERS: PCP Family Medicine; Referring Provider Internal Medicine Medical Oncology; Visit Provider Surgery | DX: Z85.038 Personal history of other malignant neoplasm of large intestine (principal); K62.5 Hemorrhage of anus and rectum; K21.9 Gastro-esophageal reflux disease without esophagitis | CPT/HCPCS: 99214 ==

== ENCOUNTER 2024-02-29 10:25 | Day surgery (SDC) | payer MEDICARE, SELFPAY ==
[2024-02-29 10:49] VITALS: BP 109/76; PULSE 103; RESP 18; TEMP 36.4; O2SAT 97; BMI 23.0
[2024-02-29] MEDS: sodium chloride 0.9% 1,000 ML 30 ML IV (10:56)
--- NOTE | 2024-02-29 11:03 | ANES.PREANE2 ---
Pre-Anesthetic Assessment Height/Weight: Height 1.55 m Weight 55.338 kg Temp Pulse Resp BP Pulse Ox O2 Del Method 97.5 F L 103 H 18 109/76 97 Room Air 02/29/24 10:49 02/29/24 10:49 02/29/24 10:49 02/29/24 10:49 02/29/24 10:49 02/29/24 10:49 Operation Date: 02/29/24 11:15 Proposed Procedures p Colonoscopy 67933, G0105, K62.5, C18.9, 00454, K21.9(Not Applicable) - Moses Nuñez DO s EGD(Not Applicable) - Moses Nuñez DO Familial anesthetic complications: None Was Beta Keshawn taken within 24 hours: N/A Was Clonidine taken within 24 hours: N/A Last intake: Intake Last Liquid Date 02/28/24 Last Liquid Time 23:00 Last Solid Date 02/27/24 Last Solid Time 15:00 Social No alcohol and No tobacco Exam alert, oriented x 3, clear to auscultation bilaterally and regular rate & rhythm Airway Submandibular: within normal limits Cervical ROM: within normal limits Mallampati: Class III Dentition: chipped Comments: Comments: Several missing History/ROS No significant history except as noted and No significant complaints Pulmonary None reported CV/HEM Anemia CONCLUSIONS Normal left ventricular size, systolic function and wall thickness, with no regional wall motion abnormalities. Left ventricular ejection fraction is estimated at 65 %. Grade I/IV diastolic dysfunction (abnormal relaxation filling pattern), normal to mildly elevated filling pressures. Structurally normal mitral valve. Trace mitral valve regurgitation. There are no prior echocardiogram studies to compare. None reported Hepatic None reported GI Gastroesophageal Reflux Disease (None this morning) Right hemicolectomy 1 year ago Rectal bleeding Metabolic Hyperlipidemia [facility] Osteoarthritis/DJD Neuropsych Anxiety, Depression and Neuropathy Anesthetic Plan ASA status: 3 Anesthesia: Anesthesia Evaluation, General and MAC Medications/Allergies Home Medications Medication Instructions Recorded Confirmed Last Taken Type nitroglycerin 0.4 mg sublingual 0.4 mg sublingual Q5M PRN chest 04/15/22 02/29/24 Unknown Rx tablet pain 30 days #30 tabs albuterol sulfate 90 mcg/actuation 2 puff inhalation QID PRN 07/27/22 02/29/24 03/25/23 Rx aerosol inhaler (ProAir HFA) shortness of breath or wheezing #8.5 grams ferrous sulfate 325 mg (65 mg 325 mg PO DAILY #90 tabs 06/29/23 02/29/24 02/28/24 Rx iron) tablet atorvastatin 40 mg tablet 40 mg PO DAILY 30 days #30 tabs 07/15/23 02/29/24 02/28/24 Rx citalopram 20 mg tablet (Celexa) 30 mg (1.5 x 20 mg) PO DAILY 30 07/15/23 02/29/24 02/28/24 Rx days #45 tabs furosemide 20 mg tablet 20 mg PO DAILY PRN prn 30 days #30 09/01/23 02/29/24 02/27/24 Rx tabs pramipexole 0.25 mg tablet 0.25 mg PO DAILY 30 days #30 tabs 09/01/23 02/29/24 02/28/24 Rx ibuprofen 400 mg tablet 400 mg PO BID PRN pain 30 days #60 09/02/23 02/29/24 02/28/24 Rx tabs alprazolam 0.25 mg tablet (Xanax) 0.25 mg PO BID PRN anxiety #60 tabs 02/19/24 02/29/24 02/27/24 Rx diclofenac sodium 3 % topical gel 1 applic topical BID PRN Pain 02/27/24 02/29/24 02/27/24 History docusate sodium 100 mg capsule 100 mg PO BID PRN Constipation 02/27/24 02/29/24 Unknown History (Colace) Allergies Allergy/AdvReac Type Severity Reaction Status Date / Time No Known Drug Allergies Allergy Intermediate na Verified 02/27/24 13:11 Current Medications Generic Name Dose Route Start Last Admin Trade Name Freq PRN Reason Stop Dose Admin Sodium Chloride 1,000 mls @ 30 mls/hr 02/29/24 10:30 02/29/24 10:56 Sodium Chloride 0.9% IV 03/01/24 10:29 30 mls/hr .Q24H SHERWIN Administration PFSH Anesthesia Medical History (Updated 02/27/24 @ 13:49 by Moses Nuñez DO) History of colon cancer Rectal bleeding Colon cancer Enrolled in chronic care management please do not remove from active Chronic pain Driving safety issue Urinary tract infection Closed left clavicular fracture Anemia GI bleed Dyslipidemia Frequent falls Diastolic dysfunction Echo 03/202222 grade 1 diastolic dysfunction, EF 65% Closed fracture of left proximal humerus Acute upper gastrointestinal bleeding Chronic pain of both shoulders Vitamin D deficiency Restless leg Anemia Anxiety Pineal gland, tumor benign Depression Surgical History H/O right hemicolectomy History of arthroplasty of left hip History of appendectomy History of esophageal dilatation History of cholecystectomy History of cataract surgery Family History Other Cancer Denies family history of GIB (gastrointestinal bleeding) Social History Smoking and tobacco/nicotine status: never used tobacco/nicotine Alcohol intake: never Substance/Drug Use: never Current occupation: Retired Data Anesthesia Cardiac Studies: Echocardiogram 04/09/22
--- NOTE | 2024-02-29 12:08 | W.PM.OPSUD ---
Surgery/Procedure H&P Update DATE OF PROCEDURE: February 29, 2024 DATE H&P PERFORMED: 02/27/24 H&P UPDATE INFORMATION: I have reviewed H&P completed within last 30 days, I have examined patient prior to procedure and No changes to prior documentation PLANNED PROCEDURE: Operation Date: 02/29/24 11:15 Proposed Procedures p Colonoscopy 31418, G0105, K62.5, C18.9, 20874, K21.9(Not Applicable) - DO priscila Cotto EGD(Not Applicable) - Moses Nuñez DO
[2024-02-29] MEDS: EPINEPHrine 1 mg/mL INJ XX (12:24)
[2024-02-29 12:47] VITALS: BP 142/76; PULSE 85; RESP 14; TEMP 36.2; O2SAT 95
[2024-02-29 12:57] VITALS: BP 129/64; PULSE 76; RESP 16; O2SAT 93
[2024-02-29 13:10] VITALS: BP 130/87; PULSE 79; RESP 16; O2SAT 98
--- NOTE | 2024-02-29 13:40 | ANE.PACU2 ---
Inpatient post-anesthesia follow up: Airway intact: Yes Vital signs: Temperature 97.1 F Pulse Rate 79 Respiratory Rate 16 Blood Pressure 130/87 Pulse Oximetry 98 Oxygen Delivery Me thod Room Air Oxygen Flow Rate Fraction of Inspir ed Oxygen Hydration adequate: Yes Nausea and vomiting: No Pain level: 1 Mental status: Baseline
== END 2024-02-29 13:40 | disposition home or self-care (01) ==
PROVIDERS: PCP Family Medicine; Visit Provider Surgery
PROC: 0DJD8ZZ Inspection of Lower Intestinal Tract, Via Natural or Artificial Opening Endoscopic (ICD-10-PCS; CPT 45378; principal; 2024-02-29 11:15)
PROC: 0DJ08ZZ Inspection of Upper Intestinal Tract, Via Natural or Artificial Opening Endoscopic (ICD-10-PCS; CPT 43235; 2024-02-29 11:15)
DX: K62.5 Hemorrhage of anus and rectum (principal); K21.9 Gastro-esophageal reflux disease without esophagitis; Z85.038 Personal history of other malignant neoplasm of large intestine; Z90.49 Acquired absence of other specified parts of digestive tract; E78.5 Hyperlipidemia, unspecified; K57.30 Diverticulosis of large intestine without perforation or abscess without bleeding; K64.8 Other hemorrhoids; K29.50 Unspecified chronic gastritis without bleeding; D12.3 Benign neoplasm of transverse colon; K44.9 Diaphragmatic hernia without obstruction or gangrene; K20.90 Esophagitis, unspecified without bleeding
CPT/HCPCS: 43239; 45385; 88305; J0171; J2704; J7030

== ENCOUNTER → 2024-03-26 14:44 | Outpatient (BNVA) | payer MEDICARE, SELFPAY | PROVIDERS: PCP Family Medicine; Visit Provider Surgery | DX: C18.9 Malignant neoplasm of colon, unspecified (principal); K62.5 Hemorrhage of anus and rectum; K21.00 Gastro-esophageal reflux disease with esophagitis, without bleeding; Z85.038 Personal history of other malignant neoplasm of large intestine; Z90.49 Acquired absence of other specified parts of digestive tract; D12.6 Benign neoplasm of colon, unspecified | CPT/HCPCS: 99214 ==

== ENCOUNTER 2024-03-28 09:45 | Day surgery (SDC) | payer MEDICARE, SELFPAY ==
[2024-03-28 10:05] VITALS: BP 117/89; PULSE 80; RESP 18; TEMP 36.6; O2SAT 96
[2024-03-28] MEDS: sodium chloride 0.9% 1,000 ML 30 ML IV (10:18)
--- NOTE | 2024-03-28 11:55 | ANES.PREANE2 ---
Pre-Anesthetic Assessment Height/Weight: Height 1.55 m Weight 58.513 kg Temp Pulse Resp BP Pulse Ox O2 Del Method 97.8 F 80 18 117/89 96 Room Air 03/28/24 10:05 03/28/24 10:05 03/28/24 10:05 03/28/24 10:05 03/28/24 10:05 03/28/24 10:05 Operation Date: 03/28/24 11:00 Proposed Procedures p Colonoscopy 39330, g0105, C18.9(Not Applicable) - Moses Nuñez DO Familial anesthetic complications: none Was Beta Keshawn taken within 24 hours: N/A Was Clonidine taken within 24 hours: N/A Last intake: Intake Last Liquid Date 03/27/24 Last Liquid Time 20:00 Last Solid Date 03/26/24 Last Solid Time 18:00 Social No alcohol and No tobacco Exam alert and oriented x 3 Airway Submandibular: within normal limits Cervical ROM: within normal limits Mallampati: Class I Dentition: chipped (missing) Pulmonary None reported CV/HEM None reported None reported GI Gastroesophageal Reflux Disease S/P right hemicolectomy from colon cancer. (pt. states surgery/scar was from gallbladder surgery) Metabolic None reported Musc/skel Weakness Neuropsych Anxiety Anesthetic Plan ASA status: 3 Anesthesia: Anesthesia Evaluation, General and MAC Medications/Allergies Home Medications Medication Instructions Recorded Confirmed Last Taken Type nitroglycerin 0.4 mg sublingual 0.4 mg sublingual Q5M PRN chest 04/15/22 03/27/24 Unknown Rx tablet pain 30 days #30 tabs albuterol sulfate 90 mcg/actuation 2 puff inhalation QID PRN 07/27/22 03/27/24 03/25/23 Rx aerosol inhaler (ProAir HFA) shortness of breath or wheezing #8.5 grams atorvastatin 40 mg tablet 40 mg PO DAILY 30 days #30 tabs 07/15/23 03/27/24 03/27/24 Rx citalopram 20 mg tablet (Celexa) 30 mg (1.5 x 20 mg) PO DAILY 30 07/15/23 03/27/24 03/27/24 Rx days #45 tabs pramipexole 0.25 mg tablet 0.25 mg PO DAILY 30 days #30 tabs 09/01/23 03/27/24 03/27/24 Rx ibuprofen 400 mg tablet 400 mg PO BID PRN pain 30 days #60 09/02/23 03/27/24 03/24/24 Rx tabs diclofenac sodium 3 % topical gel 1 applic topical BID PRN Pain 02/27/24 03/27/24 03/27/24 History docusate sodium 100 mg capsule 100 mg PO BID PRN Constipation 02/27/24 03/27/24 Unknown History (Colace) pantoprazole 40 mg tablet,delayed 40 mg PO BID 30 days #60 tabs 03/26/24 03/27/24 03/27/24 Rx release alprazolam 0.25 mg tablet (Xanax) 0.25 mg PO BID PRN anxiety 03/27/24 03/27/24 03/27/24 History furosemide 20 mg tablet 20 mg PO DAILY prn 03/27/24 03/27/24 03/27/24 History Allergies Allergy/AdvReac Type Severity Reaction Status Date / Time No Known Drug Allergies Allergy Intermediate na Verified 03/26/24 15:05 Current Medications Generic Name Dose Route Start Last Admin Trade Name Freq PRN Reason Stop Dose Admin Sodium Chloride 1,000 mls @ 30 mls/hr 03/28/24 10:00 03/28/24 10:18 Sodium Chloride 0.9% IV 03/29/24 09:59 30 mls/hr .Q24H SHERWIN Administration PFSH Anesthesia Medical History (Updated 03/26/24 @ 15:40 by Moses Nuñez DO) History of colon cancer Rectal bleeding Colon cancer Enrolled in chronic care management please do not remove from active Chronic pain Driving safety issue Urinary tract infection Closed left clavicular fracture Anemia GI bleed Dyslipidemia Frequent falls Diastolic dysfunction Echo 03/202222 grade 1 diastolic dysfunction, EF 65% Closed fracture of left proximal humerus Acute upper gastrointestinal bleeding Chronic pain of both shoulders Vitamin D deficiency Restless leg Anemia Anxiety Pineal gland, tumor benign Depression Surgical History H/O right hemicolectomy History of arthroplasty of left hip History of appendectomy History of esophageal dilatation History of cholecystectomy History of cataract surgery Family History Other Cancer Denies family history of GIB (gastrointestinal bleeding) Social History Smoking and tobacco/nicotine status: never used tobacco/nicotine Alcohol intake: never Substance/Drug Use: never Current occupation: Retired Data Anesthesia Cardiac Studies: Echocardiogram 04/09/22
--- NOTE | 2024-03-28 12:06 | W.PM.OPSUD ---
Surgery/Procedure H&P Update DATE OF PROCEDURE: March 28, 2024 DATE H&P PERFORMED: 03/26/24 H&P UPDATE INFORMATION: I have reviewed H&P completed within last 30 days, I have examined patient prior to procedure and No changes to prior documentation PLANNED PROCEDURE: Operation Date: 03/28/24 11:00 Proposed Procedures p Colonoscopy 60370, g0105, C18.9(Not Applicable) - Moses Nuñez, DO
[2024-03-28 12:24] VITALS: BP 118/65; PULSE 68; RESP 18; TEMP 36.1; O2SAT 90
[2024-03-28 12:30] VITALS: BP 118/60; PULSE 65; RESP 18; O2SAT 96
[2024-03-28 12:40] VITALS: BP 124/68; PULSE 74; RESP 18; O2SAT 94
--- NOTE | 2024-03-28 12:40 | ANE.PACU2 ---
Inpatient post-anesthesia follow up: Airway intact: Yes Vital signs: Temperature 97.0 F Pulse Rate 65 Respiratory Rate 18 Blood Pressure 118/60 Pulse Oximetry 96 Oxygen Delivery Me thod Nasal Cannula Oxygen Flow Rate 4 Fraction of Inspir ed Oxygen Hydration adequate: Yes Nausea and vomiting: No Pain level: 1 Mental status: Baseline
== END 2024-03-28 13:00 | disposition home or self-care (01) ==
PROVIDERS: PCP Family Medicine; Visit Provider Surgery
PROC: 0DJD8ZZ Inspection of Lower Intestinal Tract, Via Natural or Artificial Opening Endoscopic (ICD-10-PCS; CPT 45378; principal; 2024-03-28 11:00)
DX: C18.9 Malignant neoplasm of colon, unspecified (principal); K57.30 Diverticulosis of large intestine without perforation or abscess without bleeding; K64.8 Other hemorrhoids; K51.40 Inflammatory polyps of colon without complications; K21.9 Gastro-esophageal reflux disease without esophagitis; Z90.49 Acquired absence of other specified parts of digestive tract; Z91.81 History of falling
CPT/HCPCS: 45385; 88305; J2704; J7030

== ENCOUNTER → 2024-04-09 13:43 | Outpatient (BNVA) | payer MEDICARE, SELFPAY | PROVIDERS: PCP Family Medicine; Visit Provider Surgery | DX: Z09 Encounter for follow-up examination after completed treatment for conditions other than malignant neoplasm (principal); Z85.038 Personal history of other malignant neoplasm of large intestine | CPT/HCPCS: 99214 ==

== ENCOUNTER → 2024-07-23 15:39 | Outpatient (BNVA) | payer MEDICARE, SELFPAY | PROVIDERS: PCP Family Medicine; Visit Provider Internal Medicine Cardiovascular Disease | DX: I51.89 Other ill-defined heart diseases (principal); E78.5 Hyperlipidemia, unspecified; R06.02 Shortness of breath; R60.9 Edema, unspecified; Z87.891 Personal history of nicotine dependence | CPT/HCPCS: 99213 ==

== ENCOUNTER → 2025-03-01 08:04 | Outpatient (BNVA) | payer MEDICARE, SELFPAY | PROVIDERS: PCP Family Medicine; Visit Provider Nurse Practitioner Family | DX: Z79.899 Other long term (current) drug therapy (principal); F41.9 Anxiety disorder, unspecified; F32.9 Major depressive disorder, single episode, unspecified; E78.5 Hyperlipidemia, unspecified; K21.00 Gastro-esophageal reflux disease with esophagitis, without bleeding; D64.9 Anemia, unspecified | CPT/HCPCS: 80053; 80061; 81003; 82306; 82607; 82728; 83036; 83550; 84443; 85025 ==

== ENCOUNTER → 2025-03-12 15:13 | Outpatient (BNVA) | payer MEDICARE, SELFPAY | PROVIDERS: PCP Family Medicine; Visit Provider Nurse Practitioner Family | DX: R79.9 Abnormal finding of blood chemistry, unspecified (principal); R79.89 Other specified abnormal findings of blood chemistry; F41.9 Anxiety disorder, unspecified; F32.9 Major depressive disorder, single episode, unspecified; E78.5 Hyperlipidemia, unspecified; K21.00 Gastro-esophageal reflux disease with esophagitis, without bleeding; D64.9 Anemia, unspecified | CPT/HCPCS: 80053; 81003; 85025; 87086 ==

== ENCOUNTER → 2025-07-18 08:53 | Outpatient (BNVA) | payer MEDICARE, SELFPAY | PROVIDERS: PCP Family Medicine; Visit Provider Nurse Practitioner Family | DX: N39.0 Urinary tract infection, site not specified (principal); D50.9 Iron deficiency anemia, unspecified | CPT/HCPCS: 80053; 85025 ==

== ENCOUNTER 2025-07-31 23:00 | Emergency (ER) | payer MEDICARE, SELFPAY ==
[2025-07-31 23:01] VITALS: BP 159/74; PULSE 85; RESP 16; TEMP 36.3; O2SAT 95; BMI 22.3
--- NOTE | 2025-07-31 23:07 | XRR_ITS ---
PROCEDURE INFORMATION: Exam: XR Left Hip Exam date and time: 07/31/2025 11:09 PM Age: 89 years old Clinical indication: Injury or trauma; Fall; Blunt trauma (contusions or hematomas); Left; Prior surgery; Surgery date: 6+ months; Surgery type: Total hip replacement; Additional info: Fall, hip pain, please check pelvis ap too TECHNIQUE: Imaging protocol: Radiologic exam of the left hip. Views: 2 or 3 views hip with pelvis when performed. COMPARISON: CR XR pelvis 1-2V* [id number] 02/11/2024 9:07 AM FINDINGS: Bones/joints: Left hip bipolar hemiarthroplasty. No periprosthetic fracture. Diffuse osseous demineralization. Soft tissues: Unremarkable. XR/XR hip LT 2-3V wo/w pel* [id number] IMPRESSION: Left hip bipolar hemiarthroplasty. No periprosthetic fracture.
--- OUTSIDE RECORDS SUMMARY | 2025-07-31 23:09 | XMS_ITS | Clinical Summary ---
Author Organization [facility] Address Formerly [facility] [place] [address] Care Team Providers Care Mammalogist Name Role Phone Erik Pena MD Primary Care Provider [phone] Allergies Active Allergy Reactions Criticality Noted Date Comments Donepezil Other (See Comments) 11/05/2011 Nightmares Medications acetaminophen (TYLENOL) 325 mg Oral tablet Take 325 mg by mouth every 4 hours as needed. Active citalopram (CeleXA) 20 mg tabletIndicatio ns:Depression with anxiety TAKE ONE TABLET BY MOUTH ONCE DAILY IN THE SALES AND IN HOME DELIVERY SPECIALIST. 30 Tablet 2 8 Active Additional Information Patient taking differently: 20 mg Oral DAILY, TAKE ONE TABLET BY MOUTH ONCE DAILY IN THE SALES AND IN HOME DELIVERY SPECIALIST, Reason: not taking, Reported on 12/23/2017 ALPRAZolam (XANAX) 0.25 mg tablet Take 0.25 mg by mouth nightly as needed for Anxiety. Active PARoxetine HCl (PAXIL) 10 mg tablet Take 10 mg by mouth daily. Active Active Problems Problem Noted Date Diagnosed Date Closed fracture of left hip with routine healing 10/06/2019 CKD (chronic kidney disease) stage 3, GFR 30-59 ml/min 06/29/2016 Mixed hyperlipidemia 06/29/2016 Osteoporosis 07/03/2015 Brain tumor, Meningioma vs Schwannoma 07/23/2013 Depression with anxiety 02/14/2013 Dysphagia 04/08/2012 Alzheimer's dementia 11/05/2011 Overview (12/10/2011): Dx'd 2009 Restarted Aricept, 10/24 Was on Aricept (2008) x 6 months, stopped due to nightmares MMSE: 28/30 (10/24) Chronic meniscal tear of knee 08/17/2011 Overview (08/17/2011): MRI R Knee: 07/25 Adenomatous polyp of colon 07/26/2011 Family history of colon cancer (brother) 011 Resolved Problems Problem Noted Date Diagnosed Date Resolved Date Preop examination 12/27/2013 12/27/2016 Fracture of humerus anatomical neck 04/13/2013 12/27/2016 Colon cancer screening 05/24/201112/27 Overview (07/22/2011): Colonoscopy: 07/25 (tubular adenoma x 1) Breast CA screening 05/24/2011 12/28/19 17 Overview (11/05/2011): Mammo: 2008; Declines further Immunizations Immunization Administration Dates Next Due (ADACEL/BOOSTRIX)(10 YR UP) TDAP VACCINE, 0.5ML, IM 07/16/2013 (TDVAX)(7 YRS UP) TETANUS AN D DIPHTHERIA TOXOIDS, ADSORBED (2 LF OF TETANUS TOXOID AND 2 LF OF DIPHTHERIA TOXOID), 0.5ML (PF), IM 04/15/1998 Influenza Vaccine High Dose 65+ Yrs IM 5 Influenza Vaccine Split 3+ Yrs PF IM 05/31/2011 Pneumococcal conjugate, unspecified formulation 08/15/2007 Family History Medical History Relation Name Comments Colon Cancer Brother Cancer Maternal Aunt Stroke Mother Cancer Paternal Uncle Breast Cancer Neg Hx Ovarian Cancer Neg Hx Relation Name Status Comments Brother Maternal Aunt Mother Paternal Uncle Social History Tobacco Use Types Packs/Day Years Used Date Smoking Tobacco: Former Cigarettes 0.3 1 1 09/16/1958 - 07/16/1960 Smokeless Tobacco: Never Alcohol Use Standard Drinks/Week Comments No 0 (1 standard drink = 0.6 oz pur e alcohol) Comments No Sex and Gender Information Value Date Recorded Sex Assigned at Not on file Legal Sex Female 6:12 AM CONSUMER AFFAIRS MANAGER Gender Identity Not on file Sexual Orientation Not on file Occupation Industry Job Start Date Job End Date Not on file Not on file Not on file Not on file Last Filed Vital Signs Vital Sign Reading Time Taken Comments Blood Pressure 148/80 07/22/2020 12:58 PM CONSUMER AFFAIRS MANAGER Pulse 96 07/22/2020 12:58 PM CONSUMER AFFAIRS MANAGER Temperature 36.7 C (98 F) 07/22/2020 12:58 PM CONSUMER AFFAIRS MANAGER Respiratory Rate 18 07/22/2020 12:58 PM CONSUMER AFFAIRS MANAGER Oxygen Saturation 95% 07/22/2020 12:58 PM CONSUMER AFFAIRS MANAGER Inhaled Oxygen Concentration - - Weight 64 kg (141 lb) 07/22/2020 12:58 PM CONSUMER AFFAIRS MANAGER Height 154.9 cm (5' 1 ) 07/22/2020 12:58 PM CONSUMER AFFAIRS MANAGER Body Mass Index 26.64 07/22/2020 12:58 PM CONSUMER AFFAIRS MANAGER Plan of Treatment Health Maintenance Due Date Last Done Comments PNEUMOCOCCAL VACCINE 50+ YEA RS (1 of 1 - PCV) 1985 08/15/2007 ZOSTER VACCINE (1 of 2) 1985 RSV VACCINE (60+ or ) (1 - 1-dose 75+ series) 2010 COLORECTAL SCREENING 10/21/2016 10/21/2014, 10/21/2014, 10/21/2014, Additional history exists OSTEOPOROSIS SCREENING 06/09/2020 06/09/2015 DTAP/TDAP/TD VACCINES (2 - T d or Tdap) 07/16/2023 07/16/2013, 04/15/1998 Medicare Advantage ([place]) Preventative Visit/Annual Wellness Visit 08/15/2024 12/23/2017, 07/21/2016, 05/29/2015 INFLUENZA VACCINE (#1) 2025 05/29/2015, 2010 Procedures Procedure Name Priority Date/Time Associated Diagnosis Comments XR DEXA BONE DENSITY AXIAL 1 OR MORE SITES Routine 06/09/2015 1:32 PM CDT Menopause ENDOSCOPY, COLON, DIAGNOSTIC Routine 10/21/2014 from Last 3 Months or Most Recently Relevant to Health Maintenance Results * XR DEXA BONE DENSITY AXIAL 1 OR MORE SITES (06/09/2015 1:32 PM CDT) Anatomical Region Laterality Modality Digital Radiogra phy 06/09/2015 1:18 PM CDT Narrative 06/09/2015 2:32 PM CDT PROCEDURE DEXA BONE DENSITY, June 03, 1950 Bone mineral densitometry was assessed by DEXA of the lumbar spine and left hip. There are no previous studies for comparison. Total density measured in the lumbar spine is 0.696 g/sq cm for a T score of -3.2. The total bone density of the left hip measures 0.745 g/sq cm for a T score of -1.6. The femoral neck region measures 0.585 g/sq cm for a T score of -2.4. IMPRESSION osteoporosis, with high fracture risk Procedure Note Dangelo Archuleta MD - 06/09/2015 PROCEDURE DEXA BONE DENSITY, June 03, 1950 Bone mineral densitometry was assessed by DEXA of the lumbar spine and left hip. There are no previous studies for comparison. Total density measured in the lumbar spine is 0.696 g/sq cm for a T score of -3.2. The total bone density of the left hip measures 0.745 g/sq cm for a T score of -1.6. The femoral neck region measures 0.585 g/sq cm for a T score of -2.4. IMPRESSION osteoporosis, with high fracture risk [facility] Matty Patel MD DIAGNOSTIC IMAG ING ORDERABLES Final Result * ENDOSCOPY, COLON, DIAGNOSTIC (10/21/2014) Abstract Spg Provider GI PROCEDURE ORDERABLES Fi nal Result from Last 3 Months or Most Recently Relevant to Health Maintenance Insurance BLUE CROSS AND BLUE SHIELD BLUE CROSS AND BLUE SHIELD Care Teams Mammalogist Relationship Specialty Start Date End Date Erik Pena MD [address] [id number] PCP - General Family Practice 05/25/16
--- OUTSIDE RECORDS SUMMARY | 2025-07-31 23:09 | XMS_ITS | Clinical Summary ---
Author Organization [facility] Address [address] [place] [address] Care Team Providers Care Educational Recruiter Name Role Phone Avis Wagoner MD Primary Care Provider [phone] Allergies Active Allergy Reactions Criticality Noted Date Comments Donepezil Other (See Comments) 11/05/2011 Nightmares Medications ALPRAZolam (XANAX) 0.25 mg tablet Take 0.25 mg by mouth nightly as needed for Anxiety. 08/23/2019 Active citalopram (CeleXA) 20 mg tabletIndication s:Depression with anxiety TAKE ONE TABLET BY MOUTH ONCE DAILY IN THE RAZOR GRINDER. 30 Tablet 2 09/08/2017 Active memantine (NAMENDA) 5 mg TabletIndication s:Early onset Alzheimer's dementia without behavioral disturbance (CMS/HCC) Take 1 Tablet (5 mg) by mouth 2 times daily. Start with one a day for one week, then go to one po BID 60 Tablet 6 02/23/2022 Active tramadol HCl (TRAMADOL ORAL) Take by mouth. Active atorvastatin calcium (ATORVASTATIN ORAL) Take by mouth. Active furosemide (LASIX) 20 mg tablet Take 20 mg by mouth daily. Active Active Problems Patient Care Coordination No te Formatting of this note migh t be different from the original. 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 07/23/2013 Depression with anxiety 02/14/2013 Dysphagia 04/08/2012 Alzheimer's dementia 11/05/2011 Overview (12/11/2020): Dx'd 2008 Restarted Aricept, 10/24 Was on Aricept (2008) x 6 months, stopped due to nightmares MMSE: 28 (10/24) Chronic meniscal tear of knee 08/17/2011 Overview (12/11/2020): MRI R Knee: 07/25 Adenomatous polyp of colon 07/26/2011 Family history of colon cancer (brother) 011 Resolved Problems Problem Noted Date Diagnosed Date Resolved Date Preop examination 12/27/2013 12/27/2016 Fracture of humerus anatomical neck 04/13/2013 12/27/2016 Colon cancer screening 05/24/201112/27 Overview (12/10/2020): Colonoscopy: 07/25 (tubular adenoma x 1) Breast CA screening 05/24/2011 12/28/19 17 Overview (12/10/2020): Mammo: 2009; Declines further Immunizations Immunization Administration Dates Next [...] Used Date Smoking Tobacco: Former Cigarettes 0.3 Q uit: 07/16/1960 Smokeless Tobacco: Never Tobacco Cessation:Counseling Given: Not Answered Alcohol Use Standard Drinks/Week Comments No 0 (1 standard drink = 0.6 oz pur e alcohol) Feeling Safe Answer Date Recorded Are you in a relationship wi th someone who hurts you emotionally and/or physically? No 02/11/2024 Comments Unknown Sex and Gender Information Value Date Recorded Sex Assigned at Not on file Legal Sex Female 6:00 AM STANDARDS ANALYST Gender Identity Not on file Sexual Orientation Not on file Last Filed Vital Signs Vital Sign Reading Time Taken Comments Blood Pressure 137/88 02/11/2024 10:15 AM CDT Pulse 59 02/11/2024 9:45 AM CDT Temperature 36.9 C (98.4 F) 02/11/2024 8:34 AM CDT Respiratory Rate 14 02/11/2024 10:1 5 AM CDT Oxygen Saturation 100% 02/11/2024 9:45 AM CDT Inhaled Oxygen Concentration - - Weight 56.6 kg (124 lb 11.2 oz) 02/11/2024 8:34 AM CDT Height 154.9 cm (5' 1 ) 02/11/2024 8:34 AM CDT Body Mass Index 23.56 02/11/2024 8:34 AM CDT Plan of Treatment Health Maintenance Due Date Last Done Comments PNEUMOCOCCAL VACCINE 50+ YEA RS (1 of 1 - PCV) 1985 08/15/2007 ZOSTER VACCINE (1 of 2) 1985 RSV VACCINE (60+ or ) (1 - 1-dose 75+ series) 2010 OSTEOPOROSIS SCREENING 06/09/2020 06/09/2015, 2014 DTAP/TDAP/TD VACCINES (2 - T d or Tdap) 07/16/2023 07/16/2013, 04/15/1998 COLORECTAL SCREENING 03/09/2025 03/09/2023, 10/21/2014, 10/21/2014, Additional history exists INFLUENZA VACCINE (#1) 2025 05/29/2015, 2010 Procedures Procedure Name Priority Date/Time Associated Diagnosis Comments XR DEXA BONE DENSITY AXIAL 1 OR MORE SITES Routine 06/09/2015 1:32 PM CDT Menopause ENDOSCOPY, COLON, DIAGNOSTIC 10/21/2014 12:00 AM CDT from Last 3 Months or Most Recently Relevant to Health Maintenance Results * XR DEXA BONE DENSITY AXIAL 1 OR MORE SITES (06/09/2015 1:32 PM CDT) Anatomical Region Laterality Modality Other Narrative 06/09/2015 2:32 PM CDT PROCEDURE DEXA [...] risk Procedure Note Dangelo Archuleta MD - 12/30/2021 PROCEDURE DEXA BONE DENSITY, June 03, 1950 [...] -2.4. IMPRESSION osteoporosis, with high fracture risk Mark Patel MD DIAGNOSTIC IMAG ING ORDERABLES Final Result * ENDOSCOPY, COLON, DIAGNOSTIC (10/21/2014 12:00 AM CDT) Sgf Scanning GI PROCEDURE ORDERABLES Final Re sult from Last 3 Months or Most Recently Relevant to Health Maintenance Insurance [employer] O MCR Care Teams Educational Recruiter Relationship Specialty Start Date End Date Avis Wagoner MD [address] [place] [id number] PCP - General Family Practice 08/19/23
--- OUTSIDE RECORDS SUMMARY | 2025-07-31 23:09 | XMS_ITS | Encounter Summary ---
Author Organization [facility] Address [address] [facility] Attn: Epic Prelude ADT [place]ARR[place]LL [address] Care Team Providers Care Lead Java Programmer Name Role Phone Erik Pena MD Primary Care Provider [phone] Encounter Details Date Type Department Care Team (Late st Contact Info) Description 02/02/2007 Outpatient Historical Non-Staff, Physician NO ADDRESS ON FILE Social History Tobacco Use Types Packs/Day Years Used Date Smoking Tobacco: Never Assessed Comments Unknown Sex and Gender Information Value Date Recorded Sex Assigned at Not on file Legal Sex Female 6:12 AM PATENT LAWYER Gender Identity Not on file Sexual Orientation Not on file documented as of this encounter Plan of Treatment Not on file documented as of this encounter Procedures Procedure Name Priority Date/Time Associated Diagnosis Comments RHEUMATOID FACTOR Routine 02/02/2007 9:5 7 PM CDT NISREEN SCREEN W/REFLEX Routine 02/02/2007 9 :57 PM CDT VITAMIN B12 LEVEL Routine 02/02/2007 9:5 7 PM CDT documented in this encounter Results * RHEUMATOID FACTOR (02/02/2007 9:57 PM CDT) RHEUMATOID FACTOR <20.0 0.0 - 20.0 IU/mL INTERFACE SYSTEM Comment: RF Ranges: <20.0 Negative for Rheumatoid Factor 20.0-35.0 Borderline Serological Activities Suggest Repeat in 4-6 Weeks. >35.0 Indicates Presences of Rheumatoid Factor 02/02/2007 9:57 PM CDT Physician Non-Staff CHEMISTRY ORDERABLES Edited Performing Organization Address City/[facility] Co de Phone Number INTERFACE SYSTEM Refer to clinic/hospital department * NISREEN (02/02/2007 9:57 PM CDT) NISREEN Negative Negative INTERFACE SYSTEM 02/02/2007 9:57 PM CDT Physician Non-Staff CHEMISTRY ORDERABLES Edited Performing Organization Address City/[facility] Co de Phone Number INTERFACE SYSTEM Refer to clinic/hospital department * VITAMIN B12 (02/02/2007 9:57 PM CDT) VITAMIN B12 [phone] - 911 pg/dL INTERFACE SYSTEM 02/02/2007 9:57 PM CDT Physician Non-Staff CHEMISTRY ORDERABLES Edited Performing Organization Address City/[facility] de Phone Number INTERFACE SYSTEM Refer to clinic/hospital department documented in this encounter Visit Diagnoses Not on filedocumented in this encounter Care Teams Lead Java Programmer Relationship Specialty Start Date End Date Erik Pena MD [address] [place] [phone] PCP - General Family Practice 05/25/16 documented as of this encounter
[2025-07-31 23:10] VITALS: BP 159/74; PULSE 81; O2SAT 96
[2025-07-31 23:19] VITALS: BP 137/88; PULSE 83; O2SAT 97
--- NOTE | 2025-07-31 23:49 | ED_ITS ---
HPI - Fall General: Chief Complaint: Fall Stated Complaint: fall- left hip pain Time Seen by Provider: 07/31/25 23:04 History of Present Illness: Patient is an 89-year-old female with history of left hip replacement, that presents to the emergency room after a fall, slipped on socks, directly on her left hip. She complains of left hip pain. She is not having any dysuria. She has had 2 falls in the last month. Daughter is at bedside, notes that patient stays with each one of her children 2 weeks and rotates. This occurred just prior to arrival. Patient arrived via EMS. At bedside, patient needed to void. I assisted her and the CLASSIFICATION INSPECTOR, which patient tolerated, witho issues, and complaints of minimal left hip pain.ut Associated symptoms-after fall: Denies abdominal pain, chest pain, headache(s) or neck pain Related Data Previous Rx's ?Medication ?Instructions ?Recorded mupirocin 2 % topical ointment 1 applic topical BID 30 days #22 03/21/25 (Centany) grams pantoprazole 40 mg tablet,delayed See Rx Instructions .Route 05/13/25 release .COMPLEX #30 tabs alprazolam 0.25 mg tablet 0.25 mg PO BID PRN anxiety 3 0 days 06/11/25 #60 tabs escitalopram oxalate 10 mg tablet See Rx Instructions PO DAILY 30 06/11/25 (Lexapro) days #30 tabs megestrol 40 mg tablet See Rx Instructions .Route 1 09/30/24 .COMPLEX #90 tabs Allergies Allergy/AdvReac Type Severity Reaction Status Date / Time No Known Drug Allergies Allergy Intermediate na Verified 07/31/25 23:10 Review of Systems General: Reports: 10 or more systems reviewed and unremarkable except in HPI and below Narrative: See HPI Const: Denies: fever(s), chills or body aches Eyes: Denies: change in vision or blurry vision ENMT: Denies: throat pain Card: Denies: chest pain, palpitations, dyspnea on exertion or orthopnea Resp: Denies: dyspnea GI: Denies: abdominal pain, nausea or vomiting Musc: Reports: extremity pain, joint pain and joint stiffness; Denies: neck pain, back pain, extremity swelling, joint swelling, joint warmth, muscle weakness or deformity Skin/Breast: Denies: rash or pruritus Neuro: Denies: headache(s) or numbness in extremities Psych: Reports: anxiety and memory loss; Denies: depression or suicidal ideation PFSH ED PFSH: Medical History (Updated 08/01/25 @ 00:40 by JESÚS Obregon) Cellulitis of left foot Elevated serum creatinine Elevated BUN Encounter for laboratory test Anxiety and depression Unintended weight loss History of colon cancer Rectal bleeding Colon cancer Enrolled in chronic care management please do not remove from active Chronic pain Driving safety issue Urinary tract infection Closed left clavicular fracture Anemia GI bleed Dyslipidemia Frequent falls Diastolic dysfunction Echo 03/202222 grade 1 diastolic dysfunction, EF 65% Closed fracture of left proximal humerus Acute upper gastrointestinal bleeding Chronic pain of both shoulders Vitamin D deficiency Restless leg Anemia Anxiety Pineal gland, tumor benign Depression Surgical History H/O right hemicolectomy History of arthroplasty of left hip History of appendectomy History of esophageal dilatation History of cholecystectomy History of cataract surgery Family History Other Cancer Denies family history of GIB (gastrointestinal bleeding) Social History Smoking and tobacco/nicotine status: former use of tobacco/nicotine Alcohol intake: never Substance/Drug Use: never Current occupation: Retired Physical Exam Const: COMMON NORMALS: no acute distress, patient oriented x3 and alert GENERAL APPEARANCE: well kempt HENMT: COMMON NORMALS: normocephalic HEAD & SCALP: normocephalic Eye: COMMON NORMALS: EOMs intact bilaterally Neck/C-Spine: COMMON NORMALS: no JVD Resp: COMMON NORMALS: normal respiratory effort and No use of accessory muscles Cardio: COMMON NORMALS: no JVD, regular rate, regular rhythm, S1 normal heart sound present and S2 normal heart sound present RATE: regular rate RHYTHM: regular rhythm HEART SOUNDS: S1 normal heart sound present and S2 normal heart sound present GI: COMMON NORMALS: Soft to palpation INSPECTION: Yes normal to inspection PALPATION: Yes Soft to palpation : COMMON NORMALS: Yes no CVA tenderness BLADDER/KIDNEY EXAM: Yes no CVA tenderness Back/Pelvis: COMMON NORMALS: no CVA tenderness Extremity: COMMON NORMALS: normal to inspection and full ROM NARRATIVE EXTREMITY EXAM: Pain directly over iliac crest on the left. Range of motion however is present. Assisted to bathroom with CLASSIFICATION INSPECTOR, patient tolerated. Neuro: COMMON NORMALS: patient oriented x3 SENSORIUM/ORIENTATION: Yes alert Psych: COMMON NORMALS: mental status grossly normal APPEARANCE: Yes grossly normal and Yes well kempt ATTITUDE: Yes calm and Yes engaged INSIGHT: Good insight present (Psych) JUDGEMENT: Good judgement present (Psych) Skin: COMMON NORMALS: no rashes or lesions noted GENERAL SKIN EXAM: no rashes or lesions noted Course Vital Signs: Vital signs: Vital Signs Temperature 97.3 F L 07/31/25 23:01 Pulse Rate 83 07/31/25 23:19 Respiratory Rate 16 07/31/25 23:01 Blood Pressure 137/88 07/31/25 23:19 Pulse Oximetry 97 07/31/25 23:19 Oxygen Delivery Me thod Room Air 07/31/25 23:01 MDM - Fall Medical Decision Making Patient is a pleasant 89-year-old female that presents with daughters due to left hip pain. Patient had a slip, and fall just prior to arrival on her left hip. She is status post left hip arthroplasty in the past. This occurred just prior to arrival. Daughters are historian due to memory loss. On x-ray, there was no fracture. Discussed with patient and daughters treatment. Offered lower dose Toradol, and Norflex for pain relief. All agreed this is important. Discussed modalities to decrease the issues with memory, scheduling Tylenol, ice, lidocaine, and important safety measures. All of them stated understanding. All the children work together keeping their mom 2 weeks at a time, and patient tolerates handoff between the 4 children. Medical Records I reviewed the patient's medical records. Lab Data I reviewed the patient's lab results. Radiology Impressions Hip/Pelvis X-Ray 07/31/25 23:07 IMPRESSION: Left hip bipolar hemiarthroplasty. No periprosthetic fracture. Laboratory Results Urine Color Yellow (Yellow) 07/31/25 23:48 Urine Appearance Clear (CLEAR) 07/31/25 23:48 Urine pH 5.5 (5-7) 07/31/25 23:48 Ur Specific Blackey 1.005 (1.005-1.030) 07/31/25 23:48 Urine Protein Negative (Negative) 07/31/25 23:48 Urine Glucose (UA) Negative (Normal) 07/31/25 23:48 Urine Ketones Negative (Negative) 07/31/25 23:48 Urine Blood Negative (Negative) 07/31/25 23:48 Urine Nitrate Negative (Negative) 07/31/25 23:48 Urine Bilirubin Negative (Negative) 07/31/25 23:48 Urine Urobilinogen 1.0 mg/dL (Negative) 07/31/25 23:48 Ur Leukocyte Esterase 1+ (Negative) A 07/31/25 23:48 Urine RBC 0-2 /hpf (0-2) 07/31/25 23:48 Urine WBC 0-5 /hpf (0-5) 07/31/25 23:48 Ur Squamous Epith Cells 0-5 /hpf (0-5) 07/31/25 23:48 Amorphous Sediment Not Reportable 07/31/25 23:48 Urine Bacteria None seen /hpf (NONE) 07/31/25 23:48 Hyaline Casts 0-4 /lpf H 07/31/25 23:48 All radiology interpretation(s) finalized by discharge Discharge Plan Discharge Patient Disposition: Home Clinical Impression: Contusion of hip, left Condition: Stable Prescriptions: No Action mupirocin [Centany] 2 % ointment 1 applic topical BID 30 Days Qty: 22 0RF pantoprazole 40 mg tablet,delayed release (DR/EC) See Rx Instructions .ROUTE .COMPLEX Qty: 30 1RF Dose Instruction: TAKE 1 TABLET BY MOUTH DAILY FOR 30 DAYS Rx Instructions: TAKE 1 TABLET BY MOUTH DAILY FOR 30 DAYS escitalopram oxalate [Lexapro] 10 mg tablet See Rx Instructions PO DAILY 30 Days Qty: 30 1RF Rx Instructions: 1/2 tab daily for one week, then one tab orally daily; alprazolam 0.25 mg tablet 0.25 mg PO BID PRN (Reason: anxiety) 30 Days Qty: 60 0RF megestrol 40 mg tablet See Rx Instructions .ROUTE .COMPLEX Qty: 90 1RF Dose Instruction: TAKE 1/2 TABLET BY MOUTH TWICE DAILY FOR 30 DAYS Rx Instructions: TAKE 1/2 TABLET BY MOUTH TWICE DAILY FOR 30 DAYS Discharge Orders: Discharge ED (Routine); Ordered 08/01/25 Ordered By: Constance Ford Referrals: Avis Wagoner MD [Primary Care Provider, Family Practice] Discharge Diet: Usual diet Discharge Activity: Resume usual activity and Use walker/crutches as instructed Patient Instructions: Hip Contusion (ED) Activity Restrictions/Additional Instructions: - Ice will help with pain to the left hip. Apply for 20 minutes on 20 minutes off - Lidoderm patches you can obtain [id number] at [employer] will help with pain - Tylenol scheduled 3 times a day is a safe way for pain control in the elderly female - Make sure you use nonskid socks, and a walker to ambulate - Return to ED if you have ongoing pain and are unable to ambulate, if this occurs, workup can be expanded. - As we discussed, your urine was fine, and did not have any concern to culture or treat you with antibiotics. Thank you for choosing [facility] for your healthcare needs today. You have been screened and evaluated and felt safe for discharge. Health conditions do change or evolve sometimes and as such it is important that you follow up with your Primary Doctor to be re checked, 3-5 days is a general good time frame for follow up. You are always welcome to return to the ED for re assessment if your symptoms are worsening or you have new concerns Print Language: Mohawk Coding Level of Care Code ED Business Continuity Coordinator for Dennis Fernández
[2025-07-31 23:57] LABS: Glucose Urine UA Negative (Normal); Nitrate Urine Negative (Negative); Specific Gravity, Urine 1.005 (1.005-1.030)
[2025-08-01 00:03] LABS: Add Urine Microscopic? YES
[2025-08-01] MEDS: orphenadrine 30 mg/mL Inj 2 mL IM (00:47)
[2025-08-01 01:12] VITALS: BP 133/104; PULSE 91; O2SAT 95
== END 2025-08-01 01:13 | disposition home or self-care (01) ==
PROVIDERS: Emergency Provider Physician Assistant; PCP Family Medicine
DX: S70.02XA Contusion of left hip, initial encounter (principal); Z87.891 Personal history of nicotine dependence; E78.5 Hyperlipidemia, unspecified; Z85.038 Personal history of other malignant neoplasm of large intestine; Z96.642 Presence of left artificial hip joint; W01.0XXA Fall on same level from slipping, tripping and stumbling without subsequent striking against object, initial encounter
CPT/HCPCS: 73502; 81001; 96372; 99284; J1885; J2360